=== PATIENT | female | born 1975 | race Caucasian/White ===

== ENCOUNTER 2022-12-21 18:21 | Inpatient (IN) | payer MEDICARE, MEDICAID, SELFPAY ==
--- NOTE | ~2022-12-21 | CT_ITS ---
EXAMINATION: CT ABDOMEN AND PELVIS WITH CONTRAST CLINICAL INFORMATION: Abdominal pain. COMPARISON: 12/29/2022. TECHNIQUE: Multidetector volumetric images were obtained from the superior aspect of the liver through the pubic symphysis following administration 85 mL of Omnipaque 350 intravenous contrast. Sagittal and coronal reformatted images were obtained on the technologist's workstation. Oral contrast: No This CT examination was performed using dose optimization techniques as appropriate, variously including the following: *Automated exposure control *Adjustment of mA and/or kV according to patient size (this includes techniques or standardized protocols for targeted exams where dose is matched to indication/reason for exam; i.e. extremities or head) *Use of iterative reconstruction technique DLP: 359 mGy-cm FINDINGS: LUNG BASES: The visualized lung bases are unremarkable. LIVER, GALLBLADDER, AND BILIARY TREE: The liver is normal in size, shape, and attenuation. No focal liver lesion is seen. There is intrahepatic biliary duct dilatation and intrahepatic biliary air. There has been a prior cholecystectomy. PANCREAS: Unremarkable. SPLEEN: Unremarkable. ADRENAL GLANDS: Unremarkable. KIDNEYS AND URETERS: The kidneys are normal in size, shape, and attenuation. No hydronephrosis, hydroureter, or calculi seen. No perinephric stranding. BLADDER: Unremarkable. GASTROINTESTINAL TRACT: There is retained stool throughout the colon. There is an area of apparent soft tissue thickening left midabdomen measuring up to 4 cm associated with bowel loops. There is mild there is apparent twisting of the central mesenteric without associated bowel dilatation. The appendix is not seen. There is a moderate hiatal hernia. ABDOMINAL WALL: No significant hernia is appreciated. LYMPH NODES: Normal. VASCULAR: Unremarkable. PELVIC VISCERA: There is an IUD in place. OSSEOUS STRUCTURES: Unremarkable. CT/CT abdomen pelvis w IV con IMPRESSION: The soft tissue mass left mid abdomen is not seen as previously described and likely represented unopacified bowel on prior exam. There is a residual area of soft tissue left mid abdominal associated with bowel loops also possibly unopacified bowel versus bowel thickening. Consider repeat examination in 1-3 months with oral contrast. There is retained stool throughout the colon. There is partial twisting of the central mesentery without bowel dilatation of uncertain significance. The appendix is not seen. Moderate hiatal hernia. Common bile duct and intrahepatic biliary air is noted. Fleischner guidelines were followed.
--- NOTE | ~2022-12-21 | CT_ITS ---
EXAMINATION: CT ABDOMEN AND PELVIS WITHOUT CONTRAST CLINICAL INFORMATION: Severe abdominal pain. COMPARISON: None available. TECHNIQUE: Multidetector volumetric imaging was performed from the superior aspect of the liver through the pubic symphysis. Sagittal and coronal reformatted images were obtained on the technologist's workstation. This CT examination was performed using dose optimization techniques as appropriate, variously including the following: *Automated exposure control *Adjustment of mA and/or kV according to patient size (this includes techniques or standardized protocols for targeted exams where dose is matched to indication/reason for exam; i.e. extremities or head) *Use of iterative reconstruction technique DLP: 387 mGy-cm FINDINGS: The study is technically limited due to absence of oral and intravenous contrast and absence of body fat. LUNG BASES: The visualized lung bases are unremarkable. A moderate size hiatal hernia is noted. LIVER, GALLBLADDER, AND BILIARY TREE: The liver is normal in size, shape, and attenuation. No focal hepatic lesion or biliary ductal dilatation is present. The gallbladder is surgically absent. Evidence of pneumobilia is noted. PANCREAS: Diffuse soft tissue masslike appearance is noted within the central mid abdomen and extending on either side of the midline in the region of the pancreas. Follow-up repeat images with oral and intravenous contrast is recommended for further differentiation between nonopacified bowel loops as well as possible pancreatic pathology. SPLEEN: Unremarkable. ADRENAL GLANDS: Unremarkable. KIDNEYS AND URETERS: The kidneys are normal in size, shape, and attenuation. No hydronephrosis, hydroureter, or calculi seen. No perinephric stranding. BLADDER: Fluid containing structure in the anatomical location of the urinary bladder likely represent distended urinary bladder and less likely to be fluid containing midline tumor. GASTROINTESTINAL TRACT: Moderate size hiatal hernia. Significant ingested particle is seen within the stomach. Extensive fecal residual throughout the entire large bowel. No evidence of any abnormal bowel dilatation or air-fluid level to suspect obstruction. ABDOMINAL WALL: No significant hernia is appreciated. Peritoneal cavity: Heterogeneous lobulated soft tissue mass is present at left mid abdomen laterally along the paracolic region displacing the bowel loops medially, measures approximately 8 cm at its maximum craniocaudal dimension, not optimally characterized. Again a repeat CT scan of the abdomen and pelvis with oral and intravenous contrast is recommended for further full detail evaluation of this abnormality. LYMPH NODES: Presence or absence of mesenteric lymphadenopathy or mesenteric mass suboptimally evaluated. No definite sizable retroperitoneal soft tissue mass is visualized. Evaluation is again limited due to lack of body fat and absence of oral and intravenous contrast. VASCULAR: Unremarkable. PELVIC VISCERA: The uterus is displaced to the presacral region. The fluid containing structure in the region of the urinary bladder likely represent physiologically distended bladder and less likely to be fluid containing midline tumor with collapsed bladder. Further differentiation cannot be made on this imaging alone. Repeat evaluation with oral and intravenous contrast to opacify the bladder is recommended. OSSEOUS STRUCTURES: No suspicious focal lytic or sclerotic lesion. CT/CT abdomen pelvis wo IV con IMPRESSION: 1. Technically suboptimal study given the absence of oral and intravenous contrast and lack of body fat. 2. On this limited images, there is a suspicious soft tissue mass identified within the left mid abdomen laterally and possible soft tissue mass versus nonopacified bowel within the central upper abdomen. Fluid containing structure in the region of the urinary bladder likely represent physiologically distended bladder and less likely to be midline cystic mass with collapsed bladder. A follow-up repeat CT scan of the abdomen and pelvis following administration of adequate amount of oral contrast (to opacify the entire small and large bowel with appropriate waiting time), and intravenous contrast is recommended including possible delayed images to opacify the urinary bladder for further clarification. Fleischner guidelines were followed.
--- NOTE | ~2022-12-21 | CT_ITS ---
EXAMINATION: CT ABDOMEN AND PELVIS WITH CONTRAST CLINICAL INFORMATION: Abdominal pain, severe and intractable COMPARISON: KUB earlier today, CT abdomen pelvis 12/30/2022 TECHNIQUE: Multidetector volumetric images were obtained from the superior aspect of the liver through the pubic symphysis following administration 85 mL of Omnipaque 350 intravenous contrast. Sagittal and coronal reformatted images were obtained on the technologist's workstation. Oral contrast: No This CT examination was performed using dose optimization techniques as appropriate, variously including the following: *Automated exposure control *Adjustment of mA and/or kV according to patient size (this includes techniques or standardized protocols for targeted exams where dose is matched to indication/reason for exam; i.e. extremities or head) *Use of iterative reconstruction technique DLP: 383 mGy-cm FINDINGS: LUNG BASES: The visualized lung bases are unremarkable. LIVER, GALLBLADDER, BILIARY TREE AND PANCREAS: The liver is normal in size, shape, and attenuation. No focal hepatic lesion or biliary ductal dilatation is present. Status post cholecystectomy with pneumobilia. The common bile duct measures 10 mm. The pancreatic duct appears dilated at 6 mm and unchanged when compared to the 12/10/2022 study. No gallstones are seen. No pancreatic mass is seen. SPLEEN: Unremarkable. ADRENAL GLANDS: Unremarkable. KIDNEYS AND URETERS: The kidneys are normal in size, shape, and attenuation. No hydronephrosis, hydroureter, or calculi seen. No perinephric stranding. BLADDER: Unremarkable. GASTROINTESTINAL TRACT: A hiatal hernia is present. A large stool burden is present throughout the colon and with high density stool, presumably left overall contrast from 2 CT scans performed on 12/29/2022 and 12/30/2022 The small and large bowel are unremarkable. The appendix is unremarkable. ABDOMINAL WALL: No significant hernia is appreciated. LYMPH NODES: No retroperitoneal lymphadenopathy. VASCULAR: Unremarkable. PELVIC VISCERA: Uterus is pushed backwards by the dilated bladder and stool filled colon. An IUD is present in good position. An abnormal adnexal mass or significant free intraperitoneal fluid is not present OSSEOUS STRUCTURES: Degenerative changes are present most prominent at L5-S1. CT/CT abdomen pelvis w IV con IMPRESSION: 1. Large stool burden throughout the colon. 2. Status post cholecystectomy with pneumobilia. 3. Stable dilatation of the pancreatic duct. 4. IUD in good position. 5. Other incidental findings as described above. Fleischner guidelines were followed.
--- NOTE | ~2022-12-21 | XR_ITS ---
EXAMINATION: XR ABDOMEN KUB CLINICAL INDICATION: Severe constipation COMPARISON: Abdomen CT from 12/30/2022 TECHNIQUE: AP view of the abdomen. FINDINGS: Cholecystectomy clips in the right upper quadrant. The distribution of bowel gas is normal. No pathologic sized loops of bowel or pneumoperitoneum. The bowel gas is seen in the level the rectum. Moderate amount fecal material is present within the colon. The overall volume of fecal material has decreased compared 12/30/2022. No evidence of renal stones, although evaluation for urinary tract stones is limited due to overlying bowel gas and fecal material. Intrauterine contraceptive device is seen in the midline of the pelvis. XR/XR KUB IMPRESSION: Interval improvement. The amount of fecal material in the colon has decreased compared to 12/30/2022. There is no evidence of bowel obstruction.
--- NOTE | ~2022-12-21 | XR_ITS ---
EXAMINATION: XR ABDOMEN KUB CLINICAL INDICATION: Abdominal pain COMPARISON: None available. TECHNIQUE: AP view of the abdomen. FINDINGS: There is scattered stool and gas seen in colon with mild prominence but no distention. There is no organomegaly. No radiopaque calculi. Gallbladder is out. There is IUD within the pelvis. No gross bony abnormality seen. XR/XR KUB IMPRESSION: 1. Mild constipation. No acute process seen. 2. IUD in the pelvis. .
[2022-12-21 18:00] VITALS: BP 120/60; PULSE 72; RESP 16; TEMP 36.6; O2SAT 99
[2022-12-21 18:52] VITALS: BMI 19.6
[2022-12-21 18:57] VITALS: BMI 19.6
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
[2022-12-21] MEDS: risperiDONE 1 MG TABLET PO (21:35)
[2022-12-21] MEDS: hydrOXYzine HCL 25 MG TABLET PO (21:35)
[2022-12-21] MEDS: Nicotine Polacrilex 2 MG GUM 4 MG BUCCAL (21:36)
[2022-12-21] MEDS: traZODone HCL 50 MG TABLET PO (22:10)
[2022-12-21] MEDS: clonazePAM 1 MG TABLET PO (22:10)
[2022-12-21] MEDS: Gabapentin 600 MG TABLET PO (22:10)
[2022-12-22] MEDS: Nicotine Polacrilex 2 MG GUM 4 MG BUCCAL ×4 (06:40→20:28)
[2022-12-22 07:40] VITALS: BP 120/75; PULSE 81; RESP 18; TEMP 36.7; O2SAT 98
[2022-12-22] MEDS: Methylphenidate HCl 10 MG TABLET 20 MG PO ×2 (08:14→17:19)
[2022-12-22] MEDS: Diclofenac Sodium Delayed Rel 75 MG TABLET.DR PO ×2 (08:15→20:26)
[2022-12-22] MEDS: risperiDONE 1 MG TABLET PO ×2 (08:15→21:24)
[2022-12-22 08:27] VITALS: BMI 19.8
[2022-12-22 09:36] LABS: Alanine Aminotransferase 32 U/L (0-31); Alkaline Phosphatase 51 U/L (39-117); Anion Gap 8 (12-20); Aspartate Amino Transferase 25 U/L (5-31); Bilirubin Total 0.2 mg/dL (0.0-1.0); Blood Urea Nitrogen 10 mg/dL (9-16); Calcium 8.9 mg/dL (8.4-10.2); Carbon Dioxide 30 mmol/L (22-29); Chloride 106 mmol/L (96-108); Cholesterol 182 mg/dL (<200); Creatinine Clr Calc Pharmacy 89.5; Estimated Glomerular Filt Rate > 60; Glucose Fasting 87 mg/dL (60-99); HDL Cholesterol 61 mg/dL (>40); LDL Cholesterol Calculated 110 mg/dL (<100); Potassium 3.8 mmol/L (3.3-5.1); Sodium 140 mmol/L (135-145); Total Protein 6.4 g/dL (6.5-8.0); Triglycerides 57 mg/dL (<150)
[2022-12-22 09:51] LABS: Thyroid Stimulating Hormone 1.36 uIU/mL (0.32-4.0)
[2022-12-22 09:55] LABS: Folate 11.9 ng/mL (> or = 4.0); Vitamin B12 778 pg/mL (200-900)
[2022-12-22 10:07] LABS: Estimated Average Glucose 108 mg/dL; Hemoglobin A1c % 5.4 % (<6.0)
[2022-12-22] MEDS: Acetaminophen 325 MG TABLET 650 MG PO ×2 (10:11→21:23)
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
[2022-12-22] MEDS: Nicotine 14 MG PATCH.TD24 TRANSDERMA (17:21)
[2022-12-22] MEDS: Baclofen 10 MG TABLET PO (17:21)
[2022-12-22] MEDS: hydrOXYzine HCL 25 MG TABLET PO (20:26)
[2022-12-22] MEDS: clonazePAM 1 MG TABLET PO (20:26)
[2022-12-22 20:27] VITALS: BP 118/58; PULSE 76; RESP 16; TEMP 36.7; O2SAT 97
[2022-12-22] MEDS: Gabapentin 600 MG TABLET PO (21:23)
[2022-12-22] MEDS: Benztropine Mesylate 1 MG TABLET PO (21:24)
[2022-12-22] MEDS: traZODone HCL 50 MG TABLET PO (21:24)
[2022-12-23] MEDS: Baclofen 10 MG TABLET PO (06:13)
[2022-12-23] MEDS: Acetaminophen 325 MG TABLET 650 MG PO ×2 (06:13→17:56)
[2022-12-23] MEDS: clonazePAM 1 MG TABLET PO ×2 (06:13→17:56)
[2022-12-23] MEDS: Nicotine Polacrilex 2 MG GUM 4 MG BUCCAL ×2 (06:55→21:39)
[2022-12-23 08:12] VITALS: BP 106/63; PULSE 71; RESP 16; TEMP 36.3; O2SAT 100
[2022-12-23] MEDS: Benztropine Mesylate 1 MG TABLET PO ×2 (08:22→21:06)
[2022-12-23] MEDS: risperiDONE 1 MG TABLET PO (08:22)
[2022-12-23] MEDS: Diclofenac Sodium Delayed Rel 75 MG TABLET.DR PO ×2 (08:22→21:05)
[2022-12-23] MEDS: Nicotine 14 MG PATCH.TD24 TRANSDERMA (08:32)
[2022-12-23] MEDS: Methylphenidate HCl 10 MG TABLET 20 MG PO ×2 (09:47→15:51)
[2022-12-23] MEDS: Omeprazole 20 MG CAPSULE.DR PO (12:40)
[2022-12-23] MEDS: Gabapentin 600 MG TABLET PO ×2 (14:36→21:06)
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
[2022-12-23 20:00] VITALS: BP 112/62; PULSE 77; TEMP 36.9; O2SAT 100
[2022-12-23] MEDS: risperiDONE 2 MG TABLET PO (21:05)
[2022-12-23] MEDS: hydrOXYzine HCL 25 MG TABLET PO (21:30)
[2022-12-23] MEDS: traZODone HCL 50 MG TABLET PO (22:30)
[2022-12-23] MEDS: clonazePAM 0.5 MG TABLET PO (22:30)
[2022-12-24] MEDS: Omeprazole 20 MG CAPSULE.DR PO (08:30)
[2022-12-24] MEDS: Gabapentin 600 MG TABLET PO ×3 (08:31→22:14)
[2022-12-24] MEDS: Diclofenac Sodium Delayed Rel 75 MG TABLET.DR PO ×2 (08:31→21:47)
[2022-12-24] MEDS: Benztropine Mesylate 1 MG TABLET PO ×2 (08:31→21:47)
[2022-12-24] MEDS: risperiDONE 1 MG TABLET PO (08:31)
[2022-12-24] MEDS: Nicotine 14 MG PATCH.TD24 TRANSDERMA (08:45)
[2022-12-24] MEDS: Methylphenidate HCl 10 MG TABLET 20 MG PO ×2 (08:45→13:39)
[2022-12-24 09:00] VITALS: BP 98/56; PULSE 80; RESP 16; TEMP 36.6; O2SAT 98
[2022-12-24] MEDS: Nicotine Polacrilex 2 MG GUM 4 MG BUCCAL ×2 (10:19→14:28)
[2022-12-24] MEDS: clonazePAM 0.5 MG TABLET PO (14:48)
[2022-12-24] MEDS: clonazePAM 1 MG TABLET PO ×2 (16:55→21:47)
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
[2022-12-24] MEDS: hydrOXYzine HCL 25 MG TABLET PO (18:13)
[2022-12-24 20:20] VITALS: BP 129/73; PULSE 71; RESP 15; TEMP 36.2; O2SAT 95
[2022-12-24] MEDS: risperiDONE 2 MG TABLET PO (21:47)
[2022-12-24] MEDS: Oxymetazoline HCl 0.05 % Nasal 15 ML SPRAY 2 SPRAY NOSTRIL-B (22:11)
[2022-12-24] MEDS: Sodium Chloride 0.65 % Nasal 44 ML SPRBTL 1 SPRAY NOSTRIL-B (22:13)
[2022-12-24] MEDS: traZODone HCL 50 MG TABLET PO (22:44)
[2022-12-25] MEDS: Acetaminophen 325 MG TABLET 650 MG PO (06:27)
[2022-12-25] MEDS: Omeprazole 20 MG CAPSULE.DR PO (06:27)
[2022-12-25] MEDS: Baclofen 10 MG TABLET PO ×2 (06:27→22:05)
[2022-12-25] MEDS: Methylphenidate HCl 10 MG TABLET 20 MG PO ×2 (08:06→14:16)
[2022-12-25] MEDS: Diclofenac Sodium Delayed Rel 75 MG TABLET.DR PO (08:06)
[2022-12-25] MEDS: Benztropine Mesylate 1 MG TABLET PO ×2 (08:06→22:50)
[2022-12-25] MEDS: Gabapentin 600 MG TABLET PO ×3 (08:06→21:37)
[2022-12-25] MEDS: risperiDONE 1 MG TABLET PO (08:06)
[2022-12-25] MEDS: Nicotine 14 MG PATCH.TD24 TRANSDERMA (08:10)
[2022-12-25] MEDS: Nicotine Polacrilex 2 MG GUM 4 MG BUCCAL ×3 (08:13→18:46)
[2022-12-25] MEDS: clonazePAM 1 MG TABLET PO ×2 (08:37→18:46)
[2022-12-25 08:45] VITALS: BP 123/64; PULSE 74; RESP 16; TEMP 36.7; O2SAT 100
--- NOTE | 2022-12-25 12:56 | MHC.RECOVRN ---
47 year old Upper Sor[place] speaking female directly admitted to for increased anxiety, depression and paranoia. T/w along with Recovery Support Nurse Jade, met with pt to discuss her request for Naltrexone.? ?Pt. pleasant and cooperative and actively participating in conversation.? Denies any W/D symptoms and none observed. ?Pt reports she has a long history of AUD and that it runs in her family on both her maternal and paternal sides.? Pt reports how she was on Vivitrol in the past and it led up to her achieving 8 years of sobriety from alcohol.? She explains that approx. 4 months ago she started having increased stressors that contributed to her returning to use.? She was drinking approx. 4 mixed drinks 2x/wk since August of this year.? She did stop a week ago and denies any W/D or seizures upon stopping.? Pt. also discussed how AA was a big support for her in the past and she is going to return to those meetings upon D/C from hospital.? Pt. reports using cocaine intranasal occasionally when drinking but that it is not a regular thing.? She denies any IVDU.? Services available for AUD were discussed with patient including Naltrexone and Campral.? Patient is requesting to return to naltrexone as she has had success with it in the past.? She was given literature on information for AMY as well as clinics in the area that provide.? We also discussed potential treatment clinics in her area for these services.? Mariposa Nicole NP was contacted with request for Naltrexone start.? ?
[2022-12-25] MEDS: Ibuprofen 800 MG TABLET PO ×2 (13:35→22:05)
[2022-12-25] MEDS: clonazePAM 0.5 MG TABLET PO (14:16)
--- NOTE | 2022-12-25 16:08 | HO.PSYCHPN ---
Subjective Subjective Date of Service: 12/25/22 Reason For Visit: Schizoaffective disorder Drpression unspecified Interim History: Pt feels better in terms of paranoia. She is less anxious. However concerned about her housing situation. She saw addiction medicine for her alcohol use because she is interested in Naltrexone. That was recommended and she will start that tonight. Slept well. No SI. Says she has a to do list when she leaves. She got her period and asking for ibuprofen. She reports she is overall improving. Visible on the unit. Review of Systems Review of Systems No SOB. Pt reports musculoskeletal rigidity with and without antipsychotic No chest pain, no palpitations Mental Status Exam Mental Status Exam Narrative: Appearance:casually groomed, thin, goof hygiene, in NAD Behavior: cooperative Psychomotor: no agitation or retardation noted Speech: clear, normal rate/rhythm/volume, spontaneous TP: mostly linear TC: neighbors after her, worried about them harming her, retaliation for her going to police Mood: anxious Affect: congruent SI: denies, reports feeling less overwhelmed HI: none VH/AH: not at the moment, but reports she was hearing neighbors talking about her Delusions: paranoid delusions Insight/judgment: poor x 2. Memory/cog: alert, oriented x 3. grossly intact to conversational testing. Diagnostics Vital Signs (24Hr): Vital Signs - 24 hr 12/24/22 20:20 12/25/22 08:45 Temperature 97.1 F 98.0 F Pulse Rate 71 74 Respiratory Rate 15 16 Blood Pressure 129/73 123/64 Pulse Oximetry 95 100 Oxygen Delivery Method Room Air BMI result Body Mass Index 19.8 Labs 12/22/22 08:24 Medications Medications Current Medications Acetaminophen (Acetaminophen 325 Mg Tablet) 650 mg PO Q6H PRN PRN Reason: Headache/Pain Mild Scale (1-3) Last Admin: 12/25/22 06:27 Dose: 650 mg Al Hydroxide/Mg Hydroxide (Magnesium Hydrox/Alum Hydrox 30 Ml Oral.Susp) 30 ml PO Q6H PRN PRN Reason: Heartburn/Nausea Albuterol Sulfate (Albuterol Sulfate 90 Mcg 8 Gm Inhaler) 1 puff INHALE RQ4H PRN PRN Reason: Wheezing Baclofen (Baclofen 10 Mg Tablet) 10 mg PO BID PRN PRN Reason: muscle spasm Last Admin: 12/25/22 06:27 Dose: 10 mg Benztropine Mesylate (Benztropine Mesylate 1 Mg Tablet) 1 mg PO BID [facility] Last Admin: 12/25/22 08:06 Dose: 1 mg Clonazepam (Clonazepam 1 Mg Tablet) 1 mg PO BID PRN PRN Reason: anxiety Last Admin: 12/25/22 08:37 Dose: 1 mg Clonazepam (Clonazepam 0.5 Mg Tablet) 0.5 mg PO DAILY PRN PRN Reason: anxiety not responsive to Hydroxyzine Last Admin: 12/25/22 14:16 Dose: 0.5 mg Diclofenac Sodium (Diclofenac Sodium Delayed Rel 75 Mg Tablet.) 75 mg PO BID [facility] Last Admin: 12/25/22 08:06 Dose: 75 mg Gabapentin (Gabapentin 600 Mg Tablet) 600 mg PO TID [facility] Last Admin: 12/25/22 14:16 Dose: 600 mg Hydroxyzine HCl (Hydroxyzine Hcl 25 Mg Tablet) 25 mg PO Q6H PRN PRN Reason: Anxiety Last Admin: 12/24/22 18:13 Dose: 25 mg Ibuprofen (Ibuprofen 800 Mg Tablet) 800 mg PO TID PRN PRN Reason: Pain, Moderate(Pain Scale 4-6) Last Admin: 12/25/22 13:35 Dose: 800 mg Magnesium Hydroxide (Milk Of Magnesia 30 Ml Oral.Susp) 30 ml PO DAILY PRN PRN Reason: Constipation Methylphenidate HCl (Methylphenidate Hcl 10 Mg Tablet) 20 mg PO BID@0830,1330 [facility] Last Admin: 12/25/22 14:16 Dose: 20 mg Nicotine (Nicotine 14 Mg Patch.Td24) 14 mg TRANSDERMA DAILY PRN PRN Reason: nicotine cravings Last Admin: 12/25/22 08:10 Dose: 14 mg Nicotine Polacrilex (Nicotine Polacrilex 2 Mg Gum) 4 mg BUCCAL Q2H PRN PRN Reason: Nicotine Cravings Last Admin: 12/25/22 13:35 Dose: 2 mg Pulmicort 90 Mcg 2 each INHALE RBID [facility] Last Admin: 12/25/22 08:09 Dose: 2 each Omeprazole (Omeprazole 20 Mg Capsule.Dr) 20 mg PO DAILY@0630 [facility] Last Admin: 12/25/22 06:27 Dose: 20 mg Oxymetazoline HCl (Oxymetazoline Hcl 0.05 % Nasal 15 Ml [place]) 2 spray NOSTRIL-B BID PRN PRN Reason: Nasal Congestion Stop: 12/27/22 21:46 Last Admin: 12/24/22 22:11 Dose: 2 spray Risperidone (Risperidone 1 Mg Tablet) 1 mg PO DAILY [facility] Last Admin: 12/25/22 08:06 Dose: 1 mg Risperidone (Risperidone 2 Mg Tablet) 2 mg PO BEDTIME [facility] Last Admin: 12/24/22 21:47 Dose: 2 mg Sodium Chloride (Sodium Chloride 0.65 % Nasal 44 Ml Sprbtl) 1 spray NOSTRIL-B Q1H PRN PRN Reason: Congestion Last Admin: 12/24/22 22:13 Dose: 1 spray Trazodone HCl (Trazodone Hcl 50 Mg Tablet) 50 mg PO BEDTIME MRX1 PRN PRN Reason: Insomnia Last Admin: 12/24/22 22:44 Dose: 50 mg Allergies Allergies Allergy/AdvReac Type Severity Reaction Status Date / Time clindamycin Allergy Intermediate Rash Verified 12/21/22 17:11 Assessment & Plan Assessment & Plan (1) Psychosis: Status: Acute Code(s): F29 - Unspecified psychosis not due to a substance or known physiological condition Plan Pt with paranoid delusions towards neighbors. One previous episode of psychosis back in 2020, apparently otherwise functioning (to some degree as she is on SSI due to mental illness). Hx of substance use- alcohol, unclear other substances. Utox was negative. PLAN 1. increase risperidone to 1mg po daily and 2mg po qhs. continue cogentin 1mg po BID. 2. aftercare planning 12/24: Move Ritalin to AM and 2PM. Add an extra dose of Klonopin 0.5 mg PRN in the afternoon. 12/25: Hold Voltaren. Start Ibuprofen 800 mg TID PRN. Start Naltrexone per addiction medicine. Reason for continued inpatient stay Substantial Risk for: harm to self and rapid decompensation Time Spent With Patient Time: Total time managing care of this patient today ____ minutes.
[2022-12-25 18:00] VITALS: BP 121/72; PULSE 74; RESP 18; TEMP 36.5; O2SAT 99
[2022-12-25] MEDS: risperiDONE 2 MG TABLET PO (21:37)
[2022-12-25] MEDS: traZODone HCL 50 MG TABLET PO (22:05)
[2022-12-26] MEDS: Omeprazole 20 MG CAPSULE.DR PO (06:50)
[2022-12-26 07:25] VITALS: BP 106/63; PULSE 72; RESP 16; TEMP 37; O2SAT 98
[2022-12-26] MEDS: Naltrexone HCl 50 MG TABLET 25 MG PO (08:25)
[2022-12-26] MEDS: Methylphenidate HCl 10 MG TABLET 20 MG PO ×2 (08:26→14:03)
[2022-12-26] MEDS: Gabapentin 600 MG TABLET PO ×3 (08:26→21:03)
[2022-12-26] MEDS: clonazePAM 1 MG TABLET PO ×2 (08:27→17:11)
[2022-12-26] MEDS: Benztropine Mesylate 1 MG TABLET PO ×2 (08:27→21:03)
[2022-12-26] MEDS: risperiDONE 1 MG TABLET PO (08:28)
[2022-12-26] MEDS: Nicotine Polacrilex 2 MG GUM 4 MG BUCCAL ×2 (08:28→11:37)
[2022-12-26] MEDS: Nicotine 14 MG PATCH.TD24 TRANSDERMA (08:29)
[2022-12-26] MEDS: Sodium Chloride 0.65 % Nasal 44 ML SPRBTL 1 SPRAY NOSTRIL-B (08:31)
[2022-12-26] MEDS: Ibuprofen 800 MG TABLET PO ×2 (08:33→20:24)
--- NOTE | 2022-12-26 09:21 | HO.PSYCHPN ---
Subjective Subjective Date of Service: 12/26/22 Reason For Visit: Schizoaffective disorder Drpression unspecified Subjective Notes: Conditional Voluntary Interim History: Reviewed in team and . Patient reports feeling pretty good today. She reports feeling hopeful after speaking to addiction medicine yesterday. Pt reports sleeping well; pt stated, I haven't slept this well in months . Continues to present with paranoia regarding neighbors. Pt reports she has been in contact with [facility] and is looking for a new place to live so I don't have to be near those neighbors anymore . She is interested in attending IOP at the [facility]. denies SI/HI/VH/AH. Risperidal increased to 2mg PO BID. Medication Compliance: Yes Side effects from medications: No Attending Groups: Yes Review of Systems Constitutional: Reports as per HPI Eyes: Reports as per HPI Reports as per HPI Cardiovascular: Reports as per HPI Respiratory: Reports as per HPI Gastrointestinal: Reports as per HPI Genitourinary: Reports as per HPI Musculoskeletal: Reports as per HPI Skin/Breast: Reports as per HPI Reports as per HPI Psychiatric: Reports as per HPI Endocrine: Reports as per HPI Hematologic/Lymphatic: Reports as per HPI Allergic/Immunologic: Reports as per HPI Mental Status Exam Mental Status Exam Narrative: Pt is alert and oriented; behavior is cooperative and calm; dressed in casual attire; mood is described as good ; eye contact appropriate; Speech is normal rate, volume and prosody and not pressured; no psychomotor agitation/retardation present; thought process is organized and goal directed; Thought content is on tx; presents with some paranoia regarding neighbors; denies SI/HI. There is no evidence of perceptual disturbance. Diagnostics Vital Signs (24Hr): Vital Signs - 24 hr 12/25/22 18:00 12/26/22 07:25 Temperature 97.7 F 98.6 F Pulse Rate 74 72 Respiratory Rate 18 16 Blood Pressure 121/72 106/63 Pulse Oximetry 99 98 Oxygen Delivery Method Room Air Room Air BMI result Body Mass Index 19.8 Labs 12/22/22 08:24 Medications Medications Current Medications Acetaminophen (Acetaminophen 325 Mg Tablet) 650 mg PO Q6H PRN PRN Reason: Headache/Pain Mild Scale (1-3) Last Admin: 12/25/22 06:27 Dose: 650 mg Al Hydroxide/Mg Hydroxide (Magnesium Hydrox/Alum Hydrox 30 Ml Oral.Susp) 30 ml PO Q6H PRN PRN Reason: Heartburn/Nausea Albuterol Sulfate (Albuterol Sulfate 90 Mcg 8 Gm Inhaler) 1 puff INHALE RQ4H PRN PRN Reason: Wheezing Baclofen (Baclofen 10 Mg Tablet) 10 mg PO BID PRN PRN Reason: muscle spasm Last Admin: 12/25/22 22:05 Dose: 10 mg Benztropine Mesylate (Benztropine Mesylate 1 Mg Tablet) 1 mg PO BID [facility] Last Admin: 12/26/22 08:27 Dose: 1 mg Clonazepam (Clonazepam 1 Mg Tablet) 1 mg PO BID PRN PRN Reason: anxiety Last Admin: 12/26/22 08:27 Dose: 1 mg Clonazepam (Clonazepam 0.5 Mg Tablet) 0.5 mg PO DAILY PRN PRN Reason: anxiety not responsive to Hydroxyzine Last Admin: 12/25/22 14:16 Dose: 0.5 mg Diclofenac Sodium (Diclofenac Sodium Delayed Rel 75 Mg Tablet.Dr) 75 mg PO BID [facility] Last Admin: 12/25/22 08:06 Dose: 75 mg Gabapentin (Gabapentin 600 Mg Tablet) 600 mg PO TID [facility] Last Admin: 12/26/22 08:26 Dose: 600 mg Hydroxyzine HCl (Hydroxyzine Hcl 25 Mg Tablet) 25 mg PO Q6H PRN PRN Reason: Anxiety Last Admin: 12/24/22 18:13 Dose: 25 mg Ibuprofen (Ibuprofen 800 Mg Tablet) 800 mg PO TID PRN PRN Reason: Pain, Moderate(Pain Scale 4-6) Last Admin: 12/26/22 08:33 Dose: 800 mg Magnesium Hydroxide (Milk Of Magnesia 30 Ml Oral.Susp) 30 ml PO DAILY PRN PRN Reason: Constipation Methylphenidate HCl (Methylphenidate Hcl 10 Mg Tablet) 20 mg PO BID@0830,1330 [facility] Last Admin: 12/26/22 08:26 Dose: 20 mg Naltrexone HCl (Naltrexone Hcl 50 Mg Tablet) 25 mg PO DAILY [facility] Last Admin: 12/26/22 08:25 Dose: 25 mg Nicotine (Nicotine 14 Mg Patch.Td24) 14 mg TRANSDERMA DAILY PRN PRN Reason: nicotine cravings Last Admin: 12/26/22 08:29 Dose: 14 mg Nicotine Polacrilex (Nicotine Polacrilex 2 Mg Gum) 4 mg BUCCAL Q2H PRN PRN Reason: Nicotine Cravings Last Admin: 12/26/22 08:28 Dose: 4 mg Pulmicort 90 Mcg 2 each INHALE RBID [facility] Last Admin: 12/26/22 08:30 Dose: 2 each Omeprazole (Omeprazole 20 Mg Capsule.Dr) 20 mg PO DAILY@0630 [facility] Last Admin: 12/26/22 06:50 Dose: 20 mg Oxymetazoline HCl (Oxymetazoline Hcl 0.05 % Nasal 15 Ml [place]) 2 spray NOSTRIL-B BID PRN PRN Reason: Nasal Congestion Stop: 12/27/22 21:46 Last Admin: 12/24/22 22:11 Dose: 2 spray Risperidone (Risperidone 1 Mg Tablet) 1 mg PO DAILY [facility] Last Admin: 12/26/22 08:28 Dose: 1 mg Risperidone (Risperidone 2 Mg Tablet) 2 mg PO BEDTIME [facility] Last Admin: 12/25/22 21:37 Dose: 2 mg Sodium Chloride (Sodium Chloride 0.65 % Nasal 44 Ml Sprbtl) 1 spray NOSTRIL-B Q1H PRN PRN Reason: Congestion Last Admin: 12/26/22 08:31 Dose: 1 spray Trazodone HCl (Trazodone Hcl 50 Mg Tablet) 50 mg PO BEDTIME MRX1 PRN PRN Reason: Insomnia Last Admin: 12/25/22 22:05 Dose: 50 mg Allergies Allergies Allergy/AdvReac Type Severity Reaction Status Date / Time clindamycin Allergy Intermediate Rash Verified 12/21/22 17:11 Assessment & Plan Assessment & Plan (1) Psychosis: Status: Acute Code(s): F29 - Unspecified psychosis not due to a substance or known physiological condition Plan Pt with paranoid delusions towards neighbors. One previous episode of psychosis back in 2020, apparently otherwise functioning (to some degree as she is on SSI due to mental illness). Hx of substance use- alcohol, unclear other substances. Utox was negative. PLAN 1. increase risperidone to 1mg po daily and 2mg po qhs. continue cogentin 1mg po BID. 2. aftercare planning 12/24: Move Ritalin to AM and 2PM. Add an extra dose of Klonopin 0.5 mg PRN in the afternoon. 12/25: Hold Voltaren. Start Ibuprofen 800 mg TID PRN. Start Naltrexone per addiction medicine. 12/26: Patient reports feeling pretty good today. She reports feeling hopeful after speaking to addiction medicine yesterday. Pt reports sleeping well; pt stated, I haven't slept this well in months . Continues to present with paranoia regarding neighbors. Pt reports she has been in contact with [facility] and is looking for a new place to live so I don't have to be near those neighbors anymore . She is interested in attending IOP at the [facility]. denies SI/HI/VH/AH. Risperidal increased to 2mg PO BID. Patient educated on: diagnosis, medication risk/benefits, substance abuse and therapeutic strategies Informed Consent: understands Reason for continued inpatient stay Substantial Risk for: med/psych decompensation Time Spent With Patient Time: Total time managing care of this patient today _30___ minutes.
[2022-12-26] MEDS: Acetaminophen 325 MG TABLET 650 MG PO (11:34)
[2022-12-26] MEDS: clonazePAM 0.5 MG TABLET PO (11:35)
[2022-12-26] MEDS: Nicotine Polacrilex Lozenge 2 MG LOZENGE BUCCAL ×2 (20:24→21:57)
[2022-12-26] MEDS: Baclofen 10 MG TABLET PO (20:25)
[2022-12-26] MEDS: Benzocaine 20 % Oral Gel 9 GM TUBE 1 APPL MUCOUS MEM (20:57)
[2022-12-26] MEDS: risperiDONE 2 MG TABLET PO (21:03)
[2022-12-26 21:34] VITALS: BP 122/72; PULSE 74; RESP 18; TEMP 36.4; O2SAT 99
[2022-12-26] MEDS: traZODone HCL 50 MG TABLET PO (21:56)
[2022-12-27] MEDS: Omeprazole 20 MG CAPSULE.DR PO (06:13)
[2022-12-27 07:40] VITALS: BP 133/61; PULSE 75; RESP 16; TEMP 36.8; O2SAT 99
[2022-12-27] MEDS: Benzocaine 20 % Oral Gel 9 GM TUBE 1 APPL MUCOUS MEM (08:31)
[2022-12-27] MEDS: Sodium Chloride 0.65 % Nasal 44 ML SPRBTL 1 SPRAY NOSTRIL-B ×2 (08:32→22:48)
[2022-12-27] MEDS: Methylphenidate HCl 10 MG TABLET 20 MG PO ×2 (08:32→14:08)
[2022-12-27] MEDS: Nicotine 14 MG PATCH.TD24 TRANSDERMA (08:32)
[2022-12-27] MEDS: Naltrexone HCl 50 MG TABLET 25 MG PO (08:33)
[2022-12-27] MEDS: Benztropine Mesylate 1 MG TABLET PO ×2 (08:33→20:34)
[2022-12-27] MEDS: Nicotine Polacrilex Lozenge 2 MG LOZENGE BUCCAL ×3 (08:33→14:08)
[2022-12-27] MEDS: Gabapentin 600 MG TABLET PO ×3 (08:33→20:34)
[2022-12-27] MEDS: Ibuprofen 800 MG TABLET PO ×2 (08:33→18:35)
[2022-12-27] MEDS: risperiDONE 2 MG TABLET PO ×2 (08:33→20:34)
[2022-12-27] MEDS: clonazePAM 1 MG TABLET PO ×2 (08:33→16:43)
--- NOTE | 2022-12-27 10:04 | P.PNPSI_ITS ---
Subjective Subjective Date of Service: 12/27/22 Reason For Visit: Schizoaffective disorder Drpression unspecified Subjective Notes: Conditional Voluntary Interim History: Reviewed in team and . Patient reports feeling good today. denies any side effects from increase in risperidal. Patient reports finding the groups to be helpful. States she is looking forward to discharge and has made hotel arraignments until my new apartment is ready ;looking forward to possibly going to the [facility]. Patient denies SI/HI/VH/AH. Medication Compliance: Yes Side effects from medications: No Attending Groups: Yes Review of Systems Constitutional: Reports as per HPI Eyes: Reports as per HPI Reports as per HPI Cardiovascular: Reports as per HPI Respiratory: Reports as per HPI Gastrointestinal: Reports as per HPI Genitourinary: Reports as per HPI Musculoskeletal: Reports as per HPI Skin/Breast: Reports as per HPI Reports as per HPI Psychiatric: Reports as per HPI Endocrine: Reports as per HPI Hematologic/Lymphatic: Reports as per HPI Allergic/Immunologic: Reports as per HPI Mental Status Exam Mental Status Exam Narrative: Pt is alert and oriented; behavior is cooperative and calm; dressed in casual attire; mood is described as good ; eye contact appropriate; Speech is normal rate, volume and prosody and not pressured; no psychomotor agitation/retardation present; thought process is organized and goal directed; Thought content is on tx; denies SI/HI. There is no evidence of perceptual disturbance. Diagnostics Vital Signs (24Hr): Vital Signs - 24 hr 12/26/22 21:34 12/27/22 07:40 Temperature 97.5 F 98.2 F Pulse Rate 74 75 Respiratory Rate 18 16 Blood Pressure 122/72 133/61 Pulse Oximetry 99 99 Oxygen Delivery Method Room Air Room Air BMI result Body Mass Index 19.8 Labs 12/22/22 08:24 Medications Medications Current Medications Acetaminophen (Acetaminophen 325 Mg Tablet) 650 mg PO Q6H PRN PRN Reason: Headache/Pain Mild Scale (1-3) Last Admin: 12/26/22 11:34 Dose: 650 mg Al Hydroxide/Mg Hydroxide (Magnesium Hydrox/Alum Hydrox 30 Ml Oral.Susp) 30 ml PO Q6H PRN PRN Reason: Heartburn/Nausea Albuterol Sulfate (Albuterol Sulfate 90 Mcg 8 Gm Inhaler) 1 puff INHALE RQ4H PRN PRN Reason: Wheezing Baclofen (Baclofen 10 Mg Tablet) 10 mg PO BID PRN PRN Reason: muscle spasm Last Admin: 12/26/22 20:25 Dose: 10 mg Benzocaine (Benzocaine 20 % Oral Gel 9 Gm Tube) 1 appl MUCOUS MEM QID PRN; Protocol PRN Reason: Pain, Moderate(Pain Scale 4-6) Last Admin: 12/27/22 08:31 Dose: 1 appl Benztropine Mesylate (Benztropine Mesylate 1 Mg Tablet) 1 mg PO BID [facility] Last Admin: 12/27/22 08:33 Dose: 1 mg Clonazepam (Clonazepam 1 Mg Tablet) 1 mg PO BID PRN PRN Reason: anxiety Last Admin: 12/27/22 08:33 Dose: 1 mg Diclofenac Sodium (Diclofenac Sodium Delayed Rel 75 Mg Tablet.Dr) 75 mg PO BID [facility] Last Admin: 12/25/22 08:06 Dose: 75 mg Gabapentin (Gabapentin 600 Mg Tablet) 600 mg PO TID [facility] Last Admin: 12/27/22 08:33 Dose: 600 mg Hydroxyzine HCl (Hydroxyzine Hcl 25 Mg Tablet) 25 mg PO Q6H PRN PRN Reason: Anxiety Last Admin: 12/24/22 18:13 Dose: 25 mg Ibuprofen (Ibuprofen 800 Mg Tablet) 800 mg PO TID PRN PRN Reason: Pain, Moderate(Pain Scale 4-6) Last Admin: 12/27/22 08:33 Dose: 800 mg Magnesium Hydroxide (Milk Of Magnesia 30 Ml Oral.Susp) 30 ml PO DAILY PRN PRN Reason: Constipation Methylphenidate HCl (Methylphenidate Hcl 10 Mg Tablet) 20 mg PO BID@0830,1330 [facility] Last Admin: 12/27/22 08:32 Dose: 20 mg Naltrexone HCl (Naltrexone Hcl 50 Mg Tablet) 25 mg PO DAILY [facility] Last Admin: 12/27/22 08:33 Dose: 25 mg Nicotine (Nicotine 14 Mg Patch.Td24) 14 mg TRANSDERMA DAILY PRN PRN Reason: nicotine cravings Last Admin: 12/27/22 08:32 Dose: 14 mg Nicotine Polacrilex (Nicotine Polacrilex Lozenge 2 Mg Lozenge) 2 mg BUCCAL Q2H PRN PRN Reason: Nicotine Cravings Last Admin: 12/27/22 08:33 Dose: 2 mg Pulmicort 90 Mcg 2 each INHALE RBID [facility] Last Admin: 12/27/22 08:31 Dose: 2 each Omeprazole (Omeprazole 20 Mg Capsule.) 20 mg PO DAILY@0630 [facility] Last Admin: 12/27/22 06:13 Dose: 20 mg Oxymetazoline HCl (Oxymetazoline Hcl 0.05 % Nasal 15 Ml [place]) 2 spray NOSTRIL- B BID PRN PRN Reason: Nasal Congestion Stop: 12/27/22 21:46 Last Admin: 12/24/22 22:11 Dose: 2 spray Risperidone (Risperidone 2 Mg Tablet) 2 mg PO BID [facility] Last Admin: 12/27/22 08:33 Dose: 2 mg Sodium Chloride (Sodium Chloride 0.65 % Nasal 44 Ml Sprbtl) 1 spray NOSTRIL-B Q1H PRN PRN Reason: Congestion Last Admin: 12/27/22 08:32 Dose: 1 spray Trazodone HCl (Trazodone Hcl 50 Mg Tablet) 50 mg PO BEDTIME MRX1 PRN PRN Reason: Insomnia Last Admin: 12/26/22 21:56 Dose: 50 mg Allergies Allergies Allergy/AdvReac Type Severity Reaction Status Date / Time clindamycin Allergy Intermediate Rash Verified 12/21/22 17:11 Assessment & Plan Assessment & Plan (1) Psychosis: Status: Acute Code(s): F29 - Unspecified psychosis not due to a substance or known physiological condition Plan Pt with paranoid delusions towards neighbors. One previous episode of psychosis back in 2020, apparently otherwise functioning (to some degree as she is on SSI due to mental illness). Hx of substance use- alcohol, unclear other substances. Utox was negative. PLAN 1. increase risperidone to 1mg po daily and 2mg po qhs. continue cogentin 1mg po BID. 2. aftercare planning 12/24: Move Ritalin to AM and 2PM. Add an extra dose of Klonopin 0.5 mg PRN in the afternoon. 12/25: Hold Voltaren. Start Ibuprofen 800 mg TID PRN. Start Naltrexone per addiction medicine. 12/26: Patient reports feeling pretty good today. She reports feeling hopeful after speaking to addiction medicine yesterday. Pt reports sleeping well; pt stated, I haven't slept this well in months . Continues to present with paranoia regarding neighbors. Pt reports she has been in contact with [facility] and is looking for a new place to live so I don't have to be near those neighbors anymore . She is interested in attending IOP at the [facility]. denies SI/HI/VH/AH. Risperidal increased to 2mg PO BID. 12/27: Patient reports feeling good today. denies any side effects from increase in risperidal. Patient reports finding the groups to be helpful. States she is looking forward to discharge and has made hotel arraignments until my new apartment is ready ;looking forward to possibly going to the [facility]. Patient denies SI/HI/VH/AH. She is hoping to be discharged on Monday. Patient educated on: diagnosis, medication risk/benefits, substance abuse and therapeutic strategies Informed Consent: understands Reason for continued inpatient stay Substantial Risk for: med/psych decompensation Time Spent With Patient Time: Total time managing care of this patient today _30___ minutes.
[2022-12-27] MEDS: Baclofen 10 MG TABLET PO ×2 (14:09→20:34)
[2022-12-27] MEDS: Nicotine Polacrilex Lozenge 4 MG LOZENGE BUCCAL ×2 (16:43→22:25)
[2022-12-27 20:05] VITALS: BP 125/61; PULSE 75; RESP 18; TEMP 37.2; O2SAT 97
[2022-12-27] MEDS: hydrOXYzine HCL 25 MG TABLET PO (20:34)
[2022-12-27] MEDS: cloNIDine HCL 0.1 MG TABLET PO (22:25)
[2022-12-27] MEDS: traZODone HCL 50 MG TABLET PO (22:30)
[2022-12-27 22:31] VITALS: BP 125/77; PULSE 67
[2022-12-28] MEDS: Omeprazole 20 MG CAPSULE.DR PO (06:31)
[2022-12-28] MEDS: Nicotine 14 MG PATCH.TD24 TRANSDERMA (08:32)
[2022-12-28] MEDS: Nicotine Polacrilex Lozenge 4 MG LOZENGE BUCCAL ×5 (08:32→22:36)
[2022-12-28] MEDS: Ibuprofen 800 MG TABLET PO ×2 (08:32→17:02)
[2022-12-28] MEDS: risperiDONE 2 MG TABLET PO ×2 (08:33→21:20)
[2022-12-28] MEDS: Baclofen 10 MG TABLET PO ×2 (08:33→18:53)
[2022-12-28] MEDS: Benztropine Mesylate 1 MG TABLET PO ×2 (08:33→21:20)
[2022-12-28] MEDS: Naltrexone HCl 50 MG TABLET 25 MG PO (08:33)
[2022-12-28] MEDS: Methylphenidate HCl 10 MG TABLET 20 MG PO ×2 (08:34→14:26)
[2022-12-28] MEDS: Gabapentin 600 MG TABLET PO ×3 (08:34→21:20)
[2022-12-28] MEDS: Sodium Chloride 0.65 % Nasal 44 ML SPRBTL 1 SPRAY NOSTRIL-B (08:39)
--- NOTE | 2022-12-28 08:40 | P.PNPSI_ITS ---
Documented by User: Glo Escobar NP 12/28/22 12:18 Subjective Subjective Date of Service: 12/28/22 Reason For Visit: Schizoaffective disorder Drpression unspecified Subjective Notes: Conditional Voluntary Interim History: Reviewed in team and . Patient reports feeling stressed today. Pt easily agitated;irritable. Pt reporting she wants to stay until Monday because I have no where to go ; she reports she does not want to return to her apartment which holds her belongings or go to a hotel until she finds a new apartment. Pt stated, no one here is helping me. I can't look at my phone, the adoption social worker isn't calling anyone. I want my klonopin 0.5 back . Patient then started yelling at T/W d/t writing down notes from our conversation and not having constant eye contact. Pt stated, why are you not looking at me?! ; T/W explained that her concerns were being written down to be addressed. When T/W put pen down and looked at patient to provide full attention, pt stated, you're not listening to me! . T/W stated to patient that staff are trying to meet her needs but it appears that nothing is appeasing her. Pt stated, you're right! nothing is appeasing me! . pt then walked out of office. Start: Klonopin 0.5mg PO daily PRN DC clonidine and hydroxyzine d/t patient reporting it is not helping with my anxiety . Medication Compliance: Yes Side effects from medications: No Attending Groups: Yes Review of Systems Constitutional: Reports as per HPI Eyes: Reports as per HPI Reports as per HPI Cardiovascular: Reports as per HPI Respiratory: Reports as per HPI Gastrointestinal: Reports as per HPI Musculoskeletal: Reports as per HPI Skin/Breast: Reports as per HPI Reports as per HPI Psychiatric: Reports as per HPI Endocrine: Reports as per HPI Hematologic/Lymphatic: Reports as per HPI Allergic/Immunologic: Reports as per HPI Mental Status Exam Mental Status Exam Narrative: Pt is alert and oriented; behavior is agitated, yelling; dressed in casual attire; mood is irritable; eye contact appropriate; Speech is normal rate, loud volume; no psychomotor agitation/retardation present; thought process is organized and goal directed; Thought content is on tx; denies SI/HI. There is no evidence of perceptual disturbance. Diagnostics Vital Signs (24Hr): Vital Signs - 24 hr 12/27/22 20:05 12/27/22 22:31 Temperature 98.9 F Pulse Rate 75 67 Respiratory Rate 18 Blood Pressure 125/61 125/77 Pulse Oximetry 97 Oxygen Delivery Method Room Air BMI result Body Mass Index 19.8 Labs 12/22/22 08:24 Medications Medications Current Medications Acetaminophen (Acetaminophen 325 Mg Tablet) 650 mg PO Q6H PRN PRN Reason: Headache/Pain Mild Scale (1-3) Last Admin: 12/26/22 11:34 Dose: 650 mg Al Hydroxide/Mg Hydroxide (Magnesium Hydrox/Alum Hydrox 30 Ml Oral.Susp) 30 ml PO Q6H PRN PRN Reason: Heartburn/Nausea Albuterol Sulfate (Albuterol Sulfate 90 Mcg 8 Gm Inhaler) 1 puff INHALE RQ4H PRN PRN Reason: Wheezing Baclofen (Baclofen 10 Mg Tablet) 10 mg PO BID PRN PRN Reason: muscle spasm Last Admin: 12/27/22 20:34 Dose: 10 mg Benzocaine (Benzocaine 20 % Oral Gel 9 Gm Tube) 1 appl MUCOUS MEM QID PRN; Protocol PRN Reason: Pain, Moderate(Pain Scale 4-6) Last Admin: 12/27/22 08:31 Dose: 1 appl Benztropine Mesylate (Benztropine Mesylate 1 Mg Tablet) 1 mg PO BID [facility] Last Admin: 12/27/22 20:34 Dose: 1 mg Clonazepam (Clonazepam 1 Mg Tablet) 1 mg PO BID PRN PRN Reason: anxiety Last Admin: 12/27/22 16:43 Dose: 1 mg Clonidine HCl (Clonidine Hcl 0.1 Mg Tablet) 0.1 mg PO Q4H PRN; Protocol PRN Reason: anxiety Last Admin: 12/27/22 22:25 Dose: 0.1 mg Diclofenac Sodium (Diclofenac Sodium Delayed Rel 75 Mg Tablet.Dr) 75 mg PO BID [facility] Last Admin: 12/25/22 08:06 Dose: 75 mg Gabapentin (Gabapentin 600 Mg Tablet) 600 mg PO TID [facility] Last Admin: 12/27/22 20:34 Dose: 600 mg Hydroxyzine HCl (Hydroxyzine Hcl 25 Mg Tablet) 25 mg PO Q6H PRN PRN Reason: Anxiety Last Admin: 12/27/22 20:34 Dose: 25 mg Ibuprofen (Ibuprofen 800 Mg Tablet) 800 mg PO TID PRN PRN Reason: Pain, Moderate(Pain Scale 4-6) Last Admin: 12/27/22 18:35 Dose: 800 mg Magnesium Hydroxide (Milk Of Magnesia 30 Ml Oral.Susp) 30 ml PO DAILY PRN PRN Reason: Constipation Methylphenidate HCl (Methylphenidate Hcl 10 Mg Tablet) 20 mg PO BID@0830,1330 [facility] Last Admin: 12/27/22 14:08 Dose: 20 mg Naltrexone HCl (Naltrexone Hcl 50 Mg Tablet) 25 mg PO DAILY [facility] Last Admin: 12/27/22 08:33 Dose: 25 mg Nicotine (Nicotine 14 Mg Patch.Td24) 14 mg TRANSDERMA DAILY PRN PRN Reason: nicotine cravings Last Admin: 12/27/22 08:32 Dose: 14 mg Nicotine Polacrilex (Nicotine Polacrilex Lozenge 4 Mg Lozenge) 4 mg BUCCAL Q2H PRN PRN Reason: Nicotine Cravings Last Admin: 12/27/22 22:25 Dose: 4 mg Pulmicort 90 Mcg 2 each INHALE RBID [facility] Last Admin: 12/27/22 20:37 Dose: 2 each Omeprazole (Omeprazole 20 Mg Capsule.Dr) 20 mg PO DAILY@0630 [facility] Last Admin: 12/28/22 06:31 Dose: 20 mg Risperidone (Risperidone 2 Mg Tablet) 2 mg PO BID [facility] Last Admin: 12/27/22 20:34 Dose: 2 mg Sodium Chloride (Sodium Chloride 0.65 % Nasal 44 Ml Sprbtl) 1 spray NOSTRIL-B Q1H PRN PRN Reason: Congestion Last Admin: 12/27/22 22:48 Dose: 1 spray Trazodone HCl (Trazodone Hcl 50 Mg Tablet) 50 mg PO BEDTIME MRX1 PRN PRN Reason: Insomnia Last Admin: 12/27/22 22:30 Dose: 50 mg Allergies Allergies Allergy/AdvReac Type Severity Reaction Status Date / Time clindamycin Allergy Intermediate Rash Verified 12/21/22 17:11 Assessment & Plan Assessment & Plan (1) Psychosis: Status: Acute Code(s): F29 - Unspecified psychosis not due to a substance or known physiological condition Plan Pt with paranoid delusions towards neighbors. One previous episode of psychosis back in 2020, apparently otherwise functioning (to some degree as she is on SSI due to mental illness). Hx of substance use- alcohol, unclear other substances. Utox was negative. PLAN 1. increase risperidone to 1mg po daily and 2mg po qhs. continue cogentin 1mg po BID. 2. aftercare planning 12/24: Move Ritalin to AM and 2PM. Add an extra dose of Klonopin 0.5 mg PRN in the afternoon. 12/25: Hold Voltaren. Start Ibuprofen 800 mg TID PRN. Start Naltrexone per addiction medicine. 12/26: Patient reports feeling pretty good today. She reports feeling hopeful after speaking to addiction medicine yesterday. Pt reports sleeping well; pt stated, I haven't slept this well in months . Continues to present with paranoia regarding neighbors. Pt reports she has been in contact with [facility] and is looking for a new place to live so I don't have to be near those neighbors anymore . She is interested in attending IOP at the [facility]. denies SI/HI/VH/AH. Risperidal increased to 2mg PO BID. 12/27: Patient reports feeling good today. denies any side effects from increase in risperidal. Patient reports finding the groups to be helpful. States she is looking forward to discharge and has made hotel arraignments until my new apartment is ready ;looking forward to possibly going to the [facility]. Patient denies SI/HI/VH/AH. She is hoping to be discharged on Monday. 12/28: Patient reports feeling stressed today. Pt easily agitated;irritable. Pt reporting she wants to stay until Monday because I have no where to go ; she reports she does not want to return to her apartment which holds her belongings or go to a hotel until she finds a new apartment. Pt stated, no one here is helping me. I can't look at my phone, the adoption social worker isn't calling anyone. I want my klonopin 0.5 back . Patient then started yelling at T/W d/t writing down notes from our conversation and not having constant eye contact. Pt stated, why are you not looking at me?! ; T/W explained that her concerns were being written down to be addressed. When T/W put pen down and looked at patient to provide full attention, pt stated, you're not listening to me! . T/W stated to patient that staff are trying to meet her needs but it appears that nothing is appeasing her. Pt stated, you're right! nothing is appeasing me! . pt then walked out of office. Start: Klonopin 0.5mg PO daily PRN DC clonidine and hydroxyzine d/t patient reporting it is not helping with my anxiety . Patient educated on: diagnosis, medication risk/benefits, substance abuse and therapeutic strategies Informed Consent: understands Reason for continued inpatient stay Substantial Risk for: med/psych decompensation Time Spent With Patient Time: Total time managing care of this patient today _30___ minutes. Documented by User: Brando Hou MD 12/28/22 16:27 Subjective Subjective Reason For Visit: Schizoaffective disorder Drpression unspecified Diagnostics Labs 12/22/22 08:24 Assessment & Plan Assessment & Plan (1) Psychosis: Status: Acute Code(s): F29 - Unspecified psychosis not due to a substance or known physiological condition Plan Pt with paranoid delusions towards neighbors. One previous episode of psychosis back in 2020, apparently otherwise functioning (to some degree as she is on SSI due to mental illness). Hx of substance use- alcohol, unclear other substances. Utox was negative. PLAN 1. increase risperidone to 1mg po daily and 2mg po qhs. continue cogentin 1mg po BID. 2. aftercare planning 12/24: Move Ritalin to AM and 2PM. Add an extra dose of Klonopin 0.5 mg PRN in the afternoon. 12/25: Hold Voltaren. Start Ibuprofen 800 mg TID PRN. Start Naltrexone per addiction medicine. 12/26: Patient reports feeling pretty good today. She reports feeling hopeful after speaking to addiction medicine yesterday. Pt reports sleeping well; pt stated, I haven't slept this well in months . Continues to present with paranoia regarding neighbors. Pt reports she has been in contact with [facility] and is looking for a new place to live so I don't have to be near those neighbors anymore . She is interested in attending IOP at the [facility]. denies SI/HI/VH/AH. Risperidal increased to 2mg PO BID. 12/27: Patient reports feeling good today. denies any side effects from increase in risperidal. Patient reports finding the groups to be helpful. States she is looking forward to discharge and has made hotel arraignments until my new apartment is ready ;looking forward to possibly going to the [facility]. Patient denies SI/HI/VH/AH. She is hoping to be discharged on Monday. 12/28: Patient reports feeling stressed today. Pt easily agitated;irritable. Pt reporting she wants to stay until Monday because I have no where to go ; she reports she does not want to return to her apartment which holds her belongings or go to a hotel until she finds a new apartment. Pt stated, no one here is helping me. I can't look at my phone, the adoption social worker isn't calling anyone. I want my klonopin 0.5 back . Patient then started yelling at T/W d/t writing down notes from our conversation and not having constant eye contact. Pt stated, why are you not looking at me?! ; T/W explained that her concerns were being written down to be addressed. When T/W put pen down and looked at patient to provide full attention, pt stated, you're not listening to me! . T/W stated to patient that staff are trying to meet her needs but it appears that nothing is appeasing her. Pt stated, you're right! nothing is appeasing me! . pt then walked out of office. Start: Klonopin 0.5mg PO daily PRN Pt with PI mood instability irritability DC clonidine and hydroxyzine d/t patient reporting it is not helping with my anxiety .
[2022-12-28 08:48] VITALS: BP 115/55; PULSE 66; TEMP 36.1; O2SAT 100
[2022-12-28] MEDS: clonazePAM 1 MG TABLET PO ×2 (11:55→19:53)
[2022-12-28] MEDS: clonazePAM 0.5 MG TABLET PO (17:00)
[2022-12-28 19:45] VITALS: BP 112/57; PULSE 75; RESP 16; TEMP 36.4; O2SAT 97
[2022-12-28] MEDS: traZODone HCL 50 MG TABLET PO (22:34)
[2022-12-29] MEDS: Omeprazole 20 MG CAPSULE.DR PO (06:37)
[2022-12-29 07:00] VITALS: BMI 21.8
[2022-12-29] MEDS: Methylphenidate HCl 10 MG TABLET 20 MG PO ×2 (08:24→13:50)
[2022-12-29] MEDS: Benztropine Mesylate 1 MG TABLET PO ×2 (08:24→22:27)
[2022-12-29] MEDS: risperiDONE 2 MG TABLET PO (08:24)
[2022-12-29] MEDS: Ibuprofen 800 MG TABLET PO (08:25)
[2022-12-29] MEDS: Naltrexone HCl 50 MG TABLET PO (08:25)
[2022-12-29] MEDS: Gabapentin 600 MG TABLET PO ×3 (08:25→22:28)
[2022-12-29] MEDS: Baclofen 10 MG TABLET PO (08:25)
[2022-12-29 08:30] VITALS: BP 111/58; PULSE 69; RESP 16; TEMP 36.2; O2SAT 95
[2022-12-29] MEDS: Nicotine 14 MG PATCH.TD24 TRANSDERMA (08:30)
[2022-12-29] MEDS: Nicotine Polacrilex Lozenge 4 MG LOZENGE BUCCAL ×3 (08:30→18:23)
--- NOTE | 2022-12-29 12:13 | P.PNPSI_ITS ---
Subjective Subjective Date of Service: 12/29/22 Reason For Visit: Schizoaffective disorder Drpression unspecified Subjective Notes: Conditional Voluntary Interim History: the nursing staff reported the patient has anxiety, she had a vulvar are occasion with a peer but easily redirectable, she used her Klonopin p.r.n.. She slept 6 hours. On interview the patient reported nasal congested and requested Sudafed p.r.n.. No major changes in mental status. She stated that she has gained weight and she agreed to change all her Risperdal at bedtime. Mental Status Exam Mental Status Exam Patient Appearance: Well Grooomed and Appropriate Patient Orientation: Person, Place and Situation Level of Consciousness: Awake and Appropriate Patient Behavior: Guarded and Passive Mood Description: Calm Affect Description: Constricted Patient Cognition Impaired: Yes Ability to Follow Directions: Good Speech Pattern: Clear Hallucinations: None Delusions: Not Present Thought Process: Linear Thought Content: positive for Circumstantial Judgement: Fair Diagnostics Vital Signs (24Hr): Vital Signs - 24 hr 12/28/22 19:45 12/29/22 08:30 Temperature 97.6 F 97.2 F Pulse Rate 75 69 Respiratory Rate 16 16 Blood Pressure 112/57 L 111/58 L Pulse Oximetry 97 95 Oxygen Delivery Method Room Air Room Air BMI result Body Mass Index 19.8 Labs 12/22/22 08:24 Medications Medications Current Medications Acetaminophen (Acetaminophen 325 Mg Tablet) 650 mg PO Q6H PRN PRN Reason: Headache/Pain Mild Scale (1-3) Last Admin: 12/26/22 11:34 Dose: 650 mg Al Hydroxide/Mg Hydroxide (Magnesium Hydrox/Alum Hydrox 30 Ml Oral.Susp) 30 ml PO Q6H PRN PRN Reason: Heartburn/Nausea Albuterol Sulfate (Albuterol Sulfate 90 Mcg 8 Gm Inhaler) 1 puff INHALE RQ4H PRN PRN Reason: Wheezing Baclofen (Baclofen 10 Mg Tablet) 10 mg PO BID PRN PRN Reason: muscle spasm Last Admin: 12/29/22 08:25 Dose: 10 mg Benzocaine (Benzocaine 20 % Oral Gel 9 Gm Tube) 1 appl MUCOUS MEM QID PRN; Protocol PRN Reason: Pain, Moderate(Pain Scale 4-6) Last Admin: 12/27/22 08:31 Dose: 1 appl Benztropine Mesylate (Benztropine Mesylate 1 Mg Tablet) 1 mg PO BID [facility] Last Admin: 12/29/22 08:24 Dose: 1 mg Clonazepam (Clonazepam 1 Mg Tablet) 1 mg PO BID PRN PRN Reason: anxiety Last Admin: 12/28/22 19:53 Dose: 1 mg Clonazepam (Clonazepam 0.5 Mg Tablet) 0.5 mg PO DAILY PRN PRN Reason: Anxiety Last Admin: 12/28/22 17:00 Dose: 0.5 mg Diclofenac Sodium (Diclofenac Sodium Delayed Rel 75 Mg Tablet.) 75 mg PO BID [facility] Last Admin: 12/25/22 08:06 Dose: 75 mg Gabapentin (Gabapentin 600 Mg Tablet) 600 mg PO TID [facility] Last Admin: 12/29/22 08:25 Dose: 600 mg Ibuprofen (Ibuprofen 800 Mg Tablet) 800 mg PO TID PRN PRN Reason: Pain, Moderate(Pain Scale 4-6) Last Admin: 12/29/22 08:25 Dose: 800 mg Magnesium Hydroxide (Milk Of Magnesia 30 Ml Oral.Susp) 30 ml PO DAILY PRN PRN Reason: Constipation Methylphenidate HCl (Methylphenidate Hcl 10 Mg Tablet) 20 mg PO BID@0830,1330 [facility] Last Admin: 12/29/22 08:24 Dose: 20 mg Naltrexone HCl (Naltrexone Hcl 50 Mg Tablet) 50 mg PO DAILY [facility] Last Admin: 12/29/22 08:25 Dose: 50 mg Nicotine (Nicotine 14 Mg Patch.Td24) 14 mg TRANSDERMA DAILY PRN PRN Reason: nicotine cravings Last Admin: 12/29/22 08:30 Dose: 14 mg Nicotine Polacrilex (Nicotine Polacrilex Lozenge 4 Mg Lozenge) 4 mg BUCCAL Q2H PRN PRN Reason: Nicotine Cravings Last Admin: 12/29/22 08:30 Dose: 4 mg Pulmicort 90 Mcg 2 each INHALE RBID [facility] Last Admin: 12/29/22 08:30 Dose: 2 each Omeprazole (Omeprazole 20 Mg Capsule.Dr) 20 mg PO DAILY@0630 [facility] Last Admin: 12/29/22 06:37 Dose: 20 mg Oxymetazoline HCl (Oxymetazoline Hcl 0.05 % Nasal 15 Ml [place]) 2 spray NOSTRIL- B BID PRN PRN Reason: Allergic Symptoms Stop: 12/31/22 11:27 Risperidone (Risperidone 2 Mg Tablet) 2 mg PO BID [facility] Last Admin: 12/29/22 08:24 Dose: 2 mg Sodium Chloride (Sodium Chloride 0.65 % Nasal 44 Ml Sprbtl) 1 spray NOSTRIL-B Q1H PRN PRN Reason: Congestion Last Admin: 12/28/22 08:39 Dose: 1 spray Trazodone HCl (Trazodone Hcl 50 Mg Tablet) 50 mg PO BEDTIME MRX1 PRN PRN Reason: Insomnia Last Admin: 12/28/22 22:34 Dose: 50 mg Allergies Allergies Allergy/AdvReac Type Severity Reaction Status Date / Time clindamycin Allergy Intermediate Rash Verified 12/21/22 17:11 Assessment & Plan Assessment & Plan (1) Psychosis: Status: Acute Code(s): F29 - Unspecified psychosis not due to a substance or known physiological condition Plan Pt with paranoid delusions towards neighbors. One previous episode of psychosis back in 2020, apparently otherwise functioning (to some degree as she is on SSI due to mental illness). Hx of substance use- alcohol, unclear other substances. Utox was negative. PLAN 1. increase risperidone to 1mg po daily and 2mg po qhs. continue cogentin 1mg po BID. 2. aftercare planning 12/24: Move Ritalin to AM and 2PM. Add an extra dose of Klonopin 0.5 mg PRN in the afternoon. 12/25: Hold Voltaren. Start Ibuprofen 800 mg TID PRN. Start Naltrexone per addiction medicine. 12/26: Patient reports feeling pretty good today. She reports feeling hopeful after speaking to addiction medicine yesterday. Pt reports sleeping well; pt stated, I haven't slept this well in months . Continues to present with paranoia regarding neighbors. Pt reports she has been in contact with [facility] [employer] and is looking for a new place to live so I don't have to be near those neighbors anymore . She is interested in attending IOP at the [facility]. denies SI/HI/VH/AH. Risperidal increased to 2mg PO BID. 12/27: Patient reports feeling good today. denies any side effects from increase in risperidal. Patient reports finding the groups to be helpful. States she is looking forward to discharge and has made hotel arraignments until my new apartment is ready ;looking forward to possibly going to the [facility]. Patient denies SI/HI/VH/AH. She is hoping to be discharged on Monday. 12/28: Patient reports feeling stressed today. Pt easily agitated;irritable. Pt reporting she wants to stay until Monday because I have no where to go ; she reports she does not want to return to her apartment which holds her belongings or go to a hotel until she finds a new apartment. Pt stated, no one here is helping me. I can't look at my phone, the social psychologist isn't calling anyone. I want my klonopin 0.5 back . Patient then started yelling at T/W d/t writing down notes from our conversation and not having constant eye contact. Pt stated, why are you not looking at me?! ; T/W explained that her concerns were being written down to be addressed. When T/W put pen down and looked at patient to provide full attention, pt stated, you're not listening to me! . T/W stated to patient that staff are trying to meet her needs but it appears that nothing is appeasing her. Pt stated, you're right! nothing is appeasing me! . pt then walked out of office. Start: Klonopin 0.5mg PO daily PRN Pt with PI mood instability irritability DC clonidine and hydroxyzine d/t patient reporting it is not helping with my anxiety . 12/29 Add Sudafed PRN and change Risperdal all at hs. Reason for continued inpatient stay Substantial Risk for: inability to function, rapid decompensation and med/psych decompensation Time Spent With Patient Time: Total time managing care of this patient today _20___ minutes.
[2022-12-29] MEDS: Pseudoephedrine HCL 30 MG TABLET PO (12:43)
[2022-12-29] MEDS: clonazePAM 1 MG TABLET PO ×2 (13:49→22:27)
[2022-12-29] MEDS: clonazePAM 0.5 MG TABLET PO (17:35)
[2022-12-29] MEDS: Magnesium Hydrox/Alum Hydrox 30 ML ORAL.SUSP PO (19:51)
[2022-12-29] MEDS: Morphine Sulfate 4 MG/ML CARTRIDGE IM (21:13)
[2022-12-29 21:20] VITALS: BP 129/77; PULSE 69; RESP 18; TEMP 36.8; O2SAT 100
--- NOTE | 2022-12-29 21:30 | PC.NURSE ---
Given Morphine IM [id number]
[2022-12-29] MEDS: Prochlorperazine Edisylate 10 MG/2 ML VIAL 5 MG IM (21:45)
[2022-12-29] MEDS: risperiDONE 2 MG TABLET 4 MG PO (22:28)
[2022-12-30] MEDS: Omeprazole 20 MG CAPSULE.DR PO (06:38)
[2022-12-30 08:40] VITALS: BP 111/59; PULSE 76; RESP 16; TEMP 36.8; O2SAT 95
--- NOTE | 2022-12-30 08:50 | P.PNPSI_ITS ---
Subjective Subjective Date of Service: 12/30/22 Reason For Visit: Schizoaffective disorder Drpression unspecified Subjective Notes: Conditional Voluntary Interim History: Pt continues to present with paranoid delusions related to neighbors. She does not feel safe returning to her apartment as she worries she will continues to hear them harassing her through the baez. She denies SI/HI. She reports she feels much calmer and less overwhelmed. Pt last night with severe abdominal pain- RUQ, vomiting. repeat abdominal CT with contrast po/IV. Pt also constipated with pebble like stool. GI consult ordered. Bladder distended- PVR less 48cc. Review of Systems Review of Systems Constitutional : No Weight loss, No Fever, No Chills ENT/Mouth : No sore throat, No Rhinorrhea Eyes: No Swelling, No Redness Cardiovascular : No Chest Pain, No SOB, No Edema Respiratory : No Cough, No Sputum, No Wheezing Gastrointestinal : see HPI Genitourinary : NO Dysuria, No Urinary Frequency, No Hematuria, No Urgency Musculoskeletal : No joint pain, No Myalgias, No Joint Swelling Skin : No Skin Lesions, No rash Neuro : No Weakness, No Numbness, No Dizziness, No Headache Psych : + Anxiety/Panic, No Depression Heme/Lymph: No Bruising, No Lymphadenopathy Endocrine : No Polyuria, No Polydipsia All other systems reviewed and are negative. Constitutional: Reports as per HPI Eyes: Reports as per HPI Reports as per HPI Cardiovascular: Reports as per HPI Respiratory: Reports as per HPI Gastrointestinal: Reports as per HPI Musculoskeletal: Reports as per HPI Skin/Breast: Reports as per HPI Reports as per HPI Psychiatric: Reports as per HPI Endocrine: Reports as per HPI Hematologic/Lymphatic: Reports as per HPI Allergic/Immunologic: Reports as per HPI Mental Status Exam Mental Status Exam Patient Appearance: Well Grooomed and Appropriate Patient Orientation: Person, Place and Situation Level of Consciousness: Awake and Appropriate Patient Behavior: Guarded and Passive Mood Description: Calm Affect Description: Constricted Patient Cognition Impaired: Yes Ability to Follow Directions: Good Speech Pattern: Clear Diagnostics Vital Signs (24Hr): Vital Signs - 24 hr 12/29/22 21:20 Temperature 98.2 F Pulse Rate 69 Respiratory Rate 18 Blood Pressure 129/77 Pulse Oximetry 100 Oxygen Delivery Method Room Air BMI result Body Mass Index 21.8 Labs 12/30/22 11:46 12/30/22 11:46 Imaging Radiology Impressions: ITS Impressions Abdomen/Pelvis CT 12/29/22 20:50 IMPRESSION: 1. Technically suboptimal study given the absence of oral and intravenous contrast and lack of body fat. 2. On this limited images, there is a suspicious soft tissue mass identified within the left mid abdomen laterally and possible soft tissue mass versus nonopacified bowel within the central upper abdomen. Fluid containing structure in the region of the urinary bladder likely represent physiologically distended bladder and less likely to be midline cystic mass with collapsed bladder. A follow-up repeat CT scan of the abdomen and pelvis following administration of adequate amount of oral contrast (to opacify the entire small and large bowel with appropriate waiting time), and intravenous contrast is recommended including possible delayed images to opacify the urinary bladder for further clarification. Fleischner guidelines were followed. Medications Medications Current Medications Acetaminophen (Acetaminophen 325 Mg Tablet) 650 mg PO Q6H PRN PRN Reason: Headache/Pain Mild Scale (1-3) Last Admin: 12/26/22 11:34 Dose: 650 mg Al Hydroxide/Mg Hydroxide (Magnesium Hydrox/Alum Hydrox 30 Ml Oral.Susp) 30 ml PO Q6H PRN PRN Reason: Heartburn/Nausea Last Admin: 12/29/22 19:51 Dose: 30 ml Albuterol Sulfate (Albuterol Sulfate 90 Mcg 8 Gm Inhaler) 1 puff INHALE RQ4H PRN PRN Reason: Wheezing Baclofen (Baclofen 10 Mg Tablet) 10 mg PO BID PRN PRN Reason: muscle spasm Last Admin: 12/29/22 08:25 Dose: 10 mg Benzocaine (Benzocaine 20 % Oral Gel 9 Gm Tube) 1 appl MUCOUS MEM QID PRN; Protocol PRN Reason: Pain, Moderate(Pain Scale 4-6) Last Admin: 12/27/22 08:31 Dose: 1 appl Benztropine Mesylate (Benztropine Mesylate 1 Mg Tablet) 1 mg PO BID JULIA Last Admin: 12/29/22 22:27 Dose: 1 mg Clonazepam (Clonazepam 1 Mg Tablet) 1 mg PO BID PRN PRN Reason: anxiety Last Admin: 12/29/22 22:27 Dose: 1 mg Clonazepam (Clonazepam 0.5 Mg Tablet) 0.5 mg PO DAILY PRN PRN Reason: Anxiety Last Admin: 12/29/22 17:35 Dose: 0.5 mg Diclofenac Sodium (Diclofenac Sodium Delayed Rel 75 Mg Tablet.Dr) 75 mg PO BID [facility] Last Admin: 12/25/22 08:06 Dose: 75 mg Gabapentin (Gabapentin 600 Mg Tablet) 600 mg PO TID [facility] Last Admin: 12/29/22 22:28 Dose: 600 mg Ibuprofen (Ibuprofen 800 Mg Tablet) 800 mg PO TID PRN PRN Reason: Pain, Moderate(Pain Scale 4-6) Last Admin: 12/29/22 08:25 Dose: 800 mg Magnesium Hydroxide (Milk Of Magnesia 30 Ml Oral.Susp) 30 ml PO DAILY PRN PRN Reason: Constipation Methylphenidate HCl (Methylphenidate Hcl 10 Mg Tablet) 20 mg PO BID@0830,1330 [facility] Last Admin: 12/29/22 13:50 Dose: 20 mg Naltrexone HCl (Naltrexone Hcl 50 Mg Tablet) 50 mg PO DAILY [facility] Last Admin: 12/29/22 08:25 Dose: 50 mg Nicotine (Nicotine 14 Mg Patch.Td24) 14 mg TRANSDERMA DAILY PRN PRN Reason: nicotine cravings Last Admin: 12/29/22 08:30 Dose: 14 mg Nicotine Polacrilex (Nicotine Polacrilex Lozenge 4 Mg Lozenge) 4 mg BUCCAL Q2H PRN PRN Reason: Nicotine Cravings Last Admin: 12/29/22 18:23 Dose: 4 mg Pulmicort 90 Mcg 2 each INHALE RBID [facility] Last Admin: 12/29/22 22:29 Dose: 2 each Omeprazole (Omeprazole 20 Mg Capsule.Dr) 20 mg PO DAILY@0630 [facility] Last Admin: 12/30/22 06:38 Dose: 20 mg Oxymetazoline HCl (Oxymetazoline Hcl 0.05 % Nasal 15 Ml [place]) 2 spray NOSTRIL- B BID PRN PRN Reason: Allergic Symptoms Stop: 12/31/22 11:27 Prochlorperazine Edisylate (Prochlorperazine Edisylate 10 Mg/2 Ml Vial) 5 mg IM Q6H PRN PRN Reason: Nausea and Vomiting Last Admin: 12/29/22 21:45 Dose: 5 mg Pseudoephedrine HCl (Pseudoephedrine Hcl 30 Mg Tablet) 30 mg PO Q4H PRN PRN Reason: Nasal Congestion Last Admin: 12/29/22 12:43 Dose: 30 mg Risperidone (Risperidone 2 Mg Tablet) 4 mg PO BEDTIME [facility]UL[facility] Last Admin: 12/29/22 22:28 Dose: 4 mg Sodium Chloride (Sodium Chloride 0.65 % Nasal 44 Ml Sprbtl) 1 spray NOSTRIL-B Q1H PRN PRN Reason: Congestion Last Admin: 12/28/22 08:39 Dose: 1 spray Trazodone HCl (Trazodone Hcl 50 Mg Tablet) 50 mg PO BEDTIME MRX1 PRN PRN Reason: Insomnia Last Admin: 12/28/22 22:34 Dose: 50 mg Allergies Allergies Allergy/AdvReac Type Severity Reaction Status Date / Time clindamycin Allergy Intermediate Rash Verified 12/21/22 17:11 Assessment & Plan Assessment & Plan (1) Psychosis: Status: Acute Code(s): F29 - Unspecified psychosis not due to a substance or known physiological condition Plan Pt with paranoid delusions towards neighbors. One previous episode of psychosis back in 2020, apparently otherwise functioning (to some degree as she is on SSI due to mental illness). Hx of substance use- alcohol, unclear other substances. Utox was negative. PLAN 1. increase risperidone to 1mg po daily and 2mg po qhs. continue cogentin 1mg po BID. 2. aftercare planning 12/24: Move Ritalin to AM and 2PM. Add an extra dose of Klonopin 0.5 mg PRN in the afternoon. 12/25: Hold Voltaren. Start Ibuprofen 800 mg TID PRN. Start Naltrexone per addiction medicine. 12/26: Patient reports feeling pretty good today. She reports feeling hopeful after speaking to addiction medicine yesterday. Pt reports sleeping well; pt stated, I haven't slept this well in months . Continues to present with paranoia regarding neighbors. Pt reports she has been in contact with [facility] and is looking for a new place to live so I don't have to be near those neighbors anymore . She is interested in attending IOP at the [facility]. denies SI/HI/VH/AH. Risperidal increased to 2mg PO BID. 12/27: Patient reports feeling good today. denies any side effects from increase in risperidal. Patient reports finding the groups to be helpful. States she is looking forward to discharge and has made hotel arraignments until my new apartment is ready ;looking forward to possibly going to the [facility]. Patient denies SI/HI/VH/AH. She is hoping to be discharged on Monday. 12/28: Patient reports feeling stressed today. Pt easily agitated;irritable. Pt reporting she wants to stay until Monday because I have no where to go ; she reports she does not want to return to her apartment which holds her belongings or go to a hotel until she finds a new apartment. Pt stated, no one here is helping me. I can't look at my phone, the social welfare administrator isn't calling anyone. I want my klonopin 0.5 back . Patient then started yelling at T/W d/t writing down notes from our conversation and not having constant eye contact. Pt stated, why are you not looking at me?! ; T/W explained that her concerns were being written down to be addressed. When T/W put pen down and looked at patient to provide full attention, pt stated, you're not listening to me! . T/W stated to patient that staff are trying to meet her needs but it appears that nothing is appeasing her. Pt stated, you're right! nothing is appeasing me! . pt then walked out of office. Start: Klonopin 0.5mg PO daily PRN Pt with PI mood instability irritability DC clonidine and hydroxyzine d/t patient reporting it is not helping with my anxiety . 12/29 Add Sudafed PRN and change Risperdal all at hs. 12/30- GI consult ordered- recommended repeat, abdominal CT with contrast (ordered). pt constipated, ordered miralax. simethicone bloating. Reason for continued inpatient stay Substantial Risk for: inability to function Time Spent With Patient Time: Total time managing care of this patient today ____ minutes.
[2022-12-30] MEDS: Gabapentin 600 MG TABLET PO ×2 (09:09→14:23)
[2022-12-30] MEDS: Methylphenidate HCl 10 MG TABLET 20 MG PO ×2 (09:09→13:41)
[2022-12-30] MEDS: Naltrexone HCl 50 MG TABLET PO (09:09)
[2022-12-30] MEDS: Benztropine Mesylate 1 MG TABLET PO (09:09)
[2022-12-30] MEDS: Sodium Chloride 0.65 % Nasal 44 ML SPRBTL 1 SPRAY NOSTRIL-B (09:09)
[2022-12-30] MEDS: Pseudoephedrine HCL 30 MG TABLET PO (09:16)
[2022-12-30] MEDS: Milk of Magnesia 30 ML ORAL.SUSP PO (09:16)
[2022-12-30] MEDS: Baclofen 10 MG TABLET PO (09:16)
[2022-12-30] MEDS: Nicotine Polacrilex Lozenge 4 MG LOZENGE BUCCAL (10:43)
[2022-12-30] MEDS: clonazePAM 1 MG TABLET PO ×2 (10:47→19:26)
[2022-12-30 11:52] LABS: MANUAL DIFF FLAG NO
[2022-12-30 11:54] LABS: Basophils Percent Auto 0.4 % (0-2); Eosinophils Absolute Auto 0.1 X10*3/uL (0.0-0.4); Hematocrit 36.9 % (37.0-47.0); Hemoglobin 12.5 g/dl (12.0-16.0); Imm Gran Abs Auto 0.02 X10*3/uL (0.00-0.03); Imm Gran Pct Auto 0.3 % (0.0-0.4); Lymphocytes Absolute Auto 1.7 X10*3/uL (1.2-4.9); Mean Corpuscular HGB Conc 33.9 g/dl (31.0-35.0); Mean Corpuscular Hemoglobin 31.8 pg (27.0-33.0); Mean Corpuscular Volume 93.9 fL (80.0-98.0); Mean Platelet Volume 8.6 fL (9.4-12.3); Monocytes Absolute Auto 0.5 X10*3/uL (0.1-1.2); Neutrophils Absolute Auto 4.6 x10*3/uL (2.0-8.3); Neutrophils Percent Auto 67.3 % (45-73); Platelet Count 236 X10*3/uL (160-400); Red Blood Count 3.93 X10*6/uL (4.20-5.50); Red Cell Distribution Width 11.6 % (11.0-16.0); White Blood Count 6.9 X10*3/uL (4.8-10.8)
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
[2022-12-30 12:10] LABS: Alanine Aminotransferase 36 U/L (0-31); Albumin Level 3.9 g/dL (3.5-5.0); Alkaline Phosphatase 50 U/L (39-117); Anion Gap 7 (12-20); Aspartate Amino Transferase 32 U/L (5-31); Bilirubin Total 0.3 mg/dL (0.0-1.0); Blood Urea Nitrogen 9 mg/dL (9-16); Calcium 8.9 mg/dL (8.4-10.2); Carbon Dioxide 30 mmol/L (22-29); Chloride 107 mmol/L (96-108); Creatinine Clr Calc Pharmacy 89.3; Estimated Glomerular Filt Rate > 60; Glucose Fasting 133 mg/dL (60-99); Lipase 16 U/L (8-78); Sodium 140 mmol/L (135-145); Total Protein 6.4 g/dL (6.5-8.0)
[2022-12-30] MEDS: Metoclopramide HCl 5 MG TABLET PO (12:21)
[2022-12-30] MEDS: Simethicone 80 MG TAB.CHEW PO ×2 (12:21→16:17)
[2022-12-30] MEDS: polyethylene glycoL 3350 17 GM POWD.PACK PO (12:22)
[2022-12-30] MEDS: Acetaminophen 325 MG TABLET 650 MG PO (14:32)
[2022-12-30] MEDS: Morphine Sulfate 4 MG/ML CARTRIDGE IM (15:16)
[2022-12-30] MEDS: iohexoL 350 MG/ML 100 ML INFUS..BTL IV (16:02)
[2022-12-30] MEDS: Barium Sulfate Oral (Mocha) 450 ML ORAL.SUSP 900 ML PO (16:03)
[2022-12-30] MEDS: clonazePAM 0.5 MG TABLET PO (16:17)
--- NOTE | 2022-12-30 16:55 | PC.NURSE ---
Patient c/o increasing abdominal pain to TROLLEY COACH DRIVER when meeting today. TROLLEY COACH DRIVER ordered a GI consult and a repeat Abdominal CT scan with IV contrast to be done. Pt was provided the contrast prep to drink. Pt tolerated the prep until it was complete. Pt then c/o increased abdominal pain. Pt was provided Tylenol as ordered. Pt was then seen for GI consult and a post void bladder scan was ordered. Pt's PV was 93cc and TROLLEY COACH DRIVER was notified. At 1500 pt was complaining of sharp, cramp like pain, guarding abdomen and trying to use positioning to relieve pain. Pt was asking for morphine as she had the day prior. TROLLEY COACH DRIVER and GI agreed, given 1x dose of Morphine Sulfate 4mg at [address] scan completed at 1558. Pt back on unit resting comfortably in room, scan results pending.
--- NOTE | 2022-12-30 19:27 | PC.NURSE ---
Pt became agitated with TW when the CT results were not available yet for a MD to read. Pt then c/o pain in abdomen and refusing Tylenol or Motrin saying, they won't do anything. Pt wanted more MS and was angry when educated on the negative effects that could have on her constipation concerns. Pt offered and provided klonopin for her anxiety. TW contacted [facility], speaking to Rosalina to process the results. [facility] will process th results within 30 minutes.
[2022-12-30 19:48] VITALS: BP 118/71; PULSE 68; RESP 18; TEMP 36.6
--- NOTE | 2022-12-30 20:52 | PM.EVENT ---
Event Note Date of Service: 12/30/22 Event Note: Pt seen in follow up for severe intermittent abdominal pain. Tell me the pain is primarily right sided radiating around to the back. Describes a sharp cramping 10/10 pain that is relieved by morphine. She says this is only brought on by PO ingestion (barium earlier, dinner, etc). There is constant nausea and one episode non bloody emesis. Had follow-up CT of the abdomen/pelvis earlier today which showed the soft tissue mass in left mid abdomen previously seen on noncontrast CT was no longer seen and likely represented unopacified bowel on prior exam. There is also a residual area of soft tissue in the left mid abdominal associated with bowel loops also probably representing unopacified bowel versus bowel thickening. Consider repeat exam in 1-3 months with oral contrast. Again noted is retained stool throughout the colon and partial twisting of the central mesentery without bowel dilatation. On exam there is mild abd distension with RUQ and RLQ ttp without any guarding or rebound. +BS. At this time, suspect pain is likely r/t stool burden. Pt is on milk of mag prn and miralax daily which should be continued. Give fleet enema x1. One dose 2mg IM morphine ordered. Discussed that further narcotics are not advised due to proabably of increased constipation. Will also add lidocaine patch. Encourage PO hydration. Further plan per GI. Time Spent With Patient Time: Total time managing care of this patient today ____ minutes.
[2022-12-30] MEDS: Sodium Phosphate,Mono-Dibasic 133 ML ENEMA PR (22:29)
[2022-12-30] MEDS: Lidocaine 4 % Patch ADH..PATCH 1 PATCH TRANSDERMA (23:16)
[2022-12-31] MEDS: Benztropine Mesylate 1 MG TABLET PO (00:57)
[2022-12-31] MEDS: Gabapentin 600 MG TABLET PO ×4 (00:57→21:07)
[2022-12-31] MEDS: risperiDONE 2 MG TABLET 4 MG PO ×2 (00:58→21:08)
[2022-12-31] MEDS: Simethicone 80 MG TAB.CHEW PO ×5 (00:58→21:07)
[2022-12-31] MEDS: Morphine Sulfate 4 MG/ML CARTRIDGE 2 MG IM (01:04)
[2022-12-31 07:15] VITALS: BP 110/63; PULSE 69; TEMP 36.7; O2SAT 94
[2022-12-31] MEDS: polyethylene glycoL 3350 17 GM POWD.PACK PO ×2 (09:30→23:16)
[2022-12-31] MEDS: Sodium Chloride 0.65 % Nasal 44 ML SPRBTL 1 SPRAY NOSTRIL-B (09:30)
[2022-12-31] MEDS: Nicotine 14 MG PATCH.TD24 TRANSDERMA (09:31)
[2022-12-31] MEDS: Nicotine Polacrilex Lozenge 4 MG LOZENGE BUCCAL ×4 (09:32→21:46)
[2022-12-31] MEDS: Pseudoephedrine HCL 30 MG TABLET PO (09:32)
[2022-12-31] MEDS: Naltrexone HCl 50 MG TABLET PO (09:32)
[2022-12-31] MEDS: Omeprazole 20 MG CAPSULE.DR PO (09:32)
[2022-12-31] MEDS: Methylphenidate HCl 10 MG TABLET 20 MG PO ×2 (09:33→12:58)
[2022-12-31] MEDS: Baclofen 10 MG TABLET PO (09:33)
[2022-12-31] MEDS: Docusate Sodium 100 MG CAPSULE PO (09:55)
[2022-12-31] MEDS: bisacodyL 5 MG TABLET.DR 10 MG PO (09:55)
[2022-12-31] MEDS: clonazePAM 0.5 MG TABLET PO (12:58)
--- NOTE | 2022-12-31 14:02 | P.PNPSI_ITS ---
Subjective Subjective Date of Service: 12/31/22 Reason For Visit: Schizoaffective disorder Drpression unspecified Subjective Notes: Conditional Voluntary Interim History: Pt slept through the night. She reports abdominal pain is less. Had go-lyte, no BM. repeat KUB reordered- some improvement but still constipation. Hospitalist also following. pt visible on the unit. No SI/HI. Medication Compliance: Yes Review of Systems Review of Systems Constitutional : No Weight loss, No Fever, No Chills ENT/Mouth : No sore throat, No Rhinorrhea Eyes: No Swelling, No Redness Cardiovascular : No Chest Pain, No SOB, No Edema Respiratory : No Cough, No Sputum, No Wheezing Gastrointestinal : see HPI Genitourinary : NO Dysuria, No Urinary Frequency, No Hematuria, No Urgency Musculoskeletal : No joint pain, No Myalgias, No Joint Swelling Skin : No Skin Lesions, No rash Neuro : No Weakness, No Numbness, No Dizziness, No Headache Psych : + Anxiety/Panic, No Depression Heme/Lymph: No Bruising, No Lymphadenopathy Endocrine : No Polyuria, No Polydipsia All other systems reviewed and are negative. Constitutional: Reports as per HPI Eyes: Reports as per HPI Reports as per HPI Cardiovascular: Reports as per HPI Respiratory: Reports as per HPI Gastrointestinal: Reports as per HPI Musculoskeletal: Reports as per HPI Skin/Breast: Reports as per HPI Reports as per HPI Psychiatric: Reports as per HPI Endocrine: Reports as per HPI Hematologic/Lymphatic: Reports as per HPI Allergic/Immunologic: Reports as per HPI Mental Status Exam Mental Status Exam Narrative: Pt is alert and oriented; behavior is agitated, yelling; dressed in casual attire; mood is irritable; eye contact appropriate; Speech is normal rate, loud volume; no psychomotor agitation/retardation present; thought process is organized and goal directed; Thought content is on tx; denies SI/HI. There is no evidence of perceptual disturbance. Patient Appearance: Well Grooomed and Appropriate Patient Orientation: Person, Place and Situation Level of Consciousness: Awake and Appropriate Patient Behavior: Guarded and Passive Mood Description: Calm Affect Description: Constricted Patient Cognition Impaired: Yes Ability to Follow Directions: Good Speech Pattern: Clear Diagnostics Vital Signs (24Hr): Vital Signs - 24 hr 12/30/22 19:48 12/31/22 07:15 Temperature 97.8 F 98.1 F Pulse Rate 68 69 Respiratory Rate 18 Blood Pressure 118/71 110/63 Pulse Oximetry 94 Oxygen Delivery Method Room Air Room Air BMI result Body Mass Index 21.8 Labs 01/01/23 12:52 01/01/23 12:53 Labs: Laboratory Results - last 48 hr 12/30/22 11:46 WBC 6.9 RBC 3.93 L Hgb 12.5 Hct 36.9 L MCV 93.9 MCH 31.8 MCHC 33.9 RDW 11.6 Plt Count 236 MPV 8.6 L Immature Gran % (Auto) 0.3 Neut % (Auto) 67.3 Lymph % (Auto) 24.0 [place] % (Auto) 7.0 Eos % (Auto) 1.0 Baso % (Auto) 0.4 Lymph # (Auto) 1.7 [place] # (Auto) 0.5 Eos # (Auto) 0.1 Baso # (Auto) 0.0 Abs Immat Gran (auto) 0.02 Absolute Neuts (auto) 4.6 Absolute Nucleated RBC 0.000 Nucleated RBC % (auto) 0.0 Sodium 140 Potassium 4.0 Chloride 107 Carbon Dioxide 30 H Anion Gap 7 L BUN 9 Creatinine 0.68 Estim Creat Clear Calc 89.3 Estimated GFR > 60 Fasting Glucose 133 H Calcium 8.9 Total Bilirubin 0.3 AST 32 H ALT 36 H Alkaline Phosphatase 50 Total Protein 6.4 L Albumin 3.9 Lipase 16 Imaging Radiology Impressions: ITS Impressions Abdomen/Pelvis CT 12/29/22 20:50 IMPRESSION: 1. Technically suboptimal study given the absence of oral and intravenous contrast and lack of body fat. 2. On this limited images, there is a suspicious soft tissue mass identified within the left mid abdomen laterally and possible soft tissue mass versus nonopacified bowel within the central upper abdomen. Fluid containing structure in the region of the urinary bladder likely represent physiologically distended bladder and less likely to be midline cystic mass with collapsed bladder. A follow-up repeat CT scan of the abdomen and pelvis following administration of adequate amount of oral contrast (to opacify the entire small and large bowel with appropriate waiting time), and intravenous contrast is recommended including possible delayed images to opacify the urinary bladder for further clarification. Fleischner guidelines were followed. Abdomen/Pelvis CT 12/30/22 16:03 IMPRESSION: The soft tissue mass left mid abdomen is not seen as previously described and likely represented unopacified bowel on prior exam. There is a residual area of soft tissue left mid abdominal associated with bowel loops also possibly unopacified bowel versus bowel thickening. Consider repeat examination in 1-3 months with oral contrast. There is retained stool throughout the colon. There is partial twisting of the central mesentery without bowel dilatation of uncertain significance. The appendix is not seen. Moderate hiatal hernia. Common bile duct and intrahepatic biliary air is noted. Fleischner guidelines were followed. Medications Medications Current Medications Acetaminophen (Acetaminophen 325 Mg Tablet) 650 mg PO Q6H PRN PRN Reason: Headache/Pain Mild Scale (1-3) Last Admin: 12/30/22 14:32 Dose: 650 mg Al Hydroxide/Mg Hydroxide (Magnesium Hydrox/Alum Hydrox 30 Ml Oral.Susp) 30 ml PO Q6H PRN PRN Reason: Heartburn/Nausea Last Admin: 12/29/22 19:51 Dose: 30 ml Albuterol Sulfate (Albuterol Sulfate 90 Mcg 8 Gm Inhaler) 1 puff INHALE RQ4H PRN PRN Reason: Wheezing Baclofen (Baclofen 10 Mg Tablet) 10 mg PO BID PRN PRN Reason: muscle spasm Last Admin: 12/31/22 09:33 Dose: 10 mg Benzocaine (Benzocaine 20 % Oral Gel 9 Gm Tube) 1 appl MUCOUS MEM QID PRN; Protocol PRN Reason: Pain, Moderate(Pain Scale 4-6) Last Admin: 12/27/22 08:31 Dose: 1 appl Bisacodyl (Bisacodyl 5 Mg Tablet.) 10 mg PO DAILY [facility] Last Admin: 12/31/22 09:55 Dose: 10 mg Clonazepam (Clonazepam 1 Mg Tablet) 1 mg PO BID PRN PRN Reason: anxiety Last Admin: 12/30/22 19:26 Dose: 1 mg Clonazepam (Clonazepam 0.5 Mg Tablet) 0.5 mg PO DAILY PRN PRN Reason: Anxiety Last Admin: 12/31/22 12:58 Dose: 0.5 mg Diclofenac Sodium (Diclofenac Sodium Delayed Rel 75 Mg Tablet.) 75 mg PO BID [facility] Last Admin: 12/25/22 08:06 Dose: 75 mg Docusate Sodium (Docusate Sodium 100 Mg Capsule) 100 mg PO BID [facility] Last Admin: 12/31/22 09:55 Dose: 100 mg Gabapentin (Gabapentin 600 Mg Tablet) 600 mg PO TID [facility] Last Admin: 12/31/22 09:33 Dose: 600 mg Ibuprofen (Ibuprofen 800 Mg Tablet) 800 mg PO TID PRN PRN Reason: Pain, Moderate(Pain Scale 4-6) Last Admin: 12/29/22 08:25 Dose: 800 mg Magnesium Hydroxide (Milk Of Magnesia 30 Ml Oral.Susp) 30 ml PO DAILY PRN PRN Reason: Constipation Last Admin: 12/30/22 09:16 Dose: 30 ml Methylphenidate HCl (Methylphenidate Hcl 10 Mg Tablet) 20 mg PO BID@0830,1330 [facility] Last Admin: 12/31/22 12:58 Dose: 20 mg Naltrexone HCl (Naltrexone Hcl 50 Mg Tablet) 50 mg PO DAILY [facility] Last Admin: 12/31/22 09:32 Dose: 50 mg Nicotine (Nicotine 14 Mg Patch.Td24) 14 mg TRANSDERMA DAILY PRN PRN Reason: nicotine cravings Last Admin: 12/31/22 09:31 Dose: 14 mg Nicotine Polacrilex (Nicotine Polacrilex Lozenge 4 Mg Lozenge) 4 mg BUCCAL Q2H PRN PRN Reason: Nicotine Cravings Last Admin: 12/31/22 13:01 Dose: 4 mg Pulmicort 90 Mcg 2 each INHALE RBID [facility] Last Admin: 12/31/22 09:30 Dose: Not Given Omeprazole (Omeprazole 20 Mg Capsule.Dr) 20 mg PO DAILY@0630 [facility] Last Admin: 12/31/22 09:32 Dose: 20 mg Polyethylene Glycol (Polyethylene Glycol 3350 17 Gm Powd.Pack) 17 gm PO DAILY [facility] Last Admin: 12/31/22 09:30 Dose: 17 gm Polyethylene Glycol (Polyethylene Glycol 3350 17 Gm Powd.Pack) 17 gm PO BID [facility] Last Admin: 12/31/22 09:56 Dose: Not Given Prochlorperazine Edisylate (Prochlorperazine Edisylate 10 Mg/2 Ml Vial) 5 mg IM Q6H PRN PRN Reason: Nausea and Vomiting Last Admin: 12/29/22 21:45 Dose: 5 mg Pseudoephedrine HCl (Pseudoephedrine Hcl 30 Mg Tablet) 30 mg PO Q4H PRN PRN Reason: Nasal Congestion Last Admin: 12/31/22 09:32 Dose: 30 mg Risperidone (Risperidone 2 Mg Tablet) 4 mg PO BEDTIME [facility] Last Admin: 12/31/22 00:58 Dose: 4 mg Simethicone (Simethicone 80 Mg Tab.Chew) 80 mg PO QIDWMHS JULIA Last Admin: 12/31/22 12:58 Dose: 80 mg Sodium Biphosphate/Sodium Phosphate (Sodium Phosphate,[place]-Dibasic 133 Ml Enema) 133 ml [place] ONCE PRN PRN Reason: Constipation Last Admin: 12/30/22 22:29 Dose: 133 ml Sodium Chloride (Sodium Chloride 0.65 % Nasal 44 Ml Sprbtl) 1 spray NOSTRIL-B Q1H PRN PRN Reason: Congestion Last Admin: 12/31/22 09:30 Dose: 1 spray Trazodone HCl (Trazodone Hcl 50 Mg Tablet) 50 mg PO BEDTIME MRX1 PRN PRN Reason: Insomnia Last Admin: 12/28/22 22:34 Dose: 50 mg Allergies Allergies Allergy/AdvReac Type Severity Reaction Status Date / Time clindamycin Allergy Intermediate Rash Verified 12/21/22 17:11 Assessment & Plan Assessment & Plan (1) Psychosis: Status: Acute Code(s): F29 - Unspecified psychosis not due to a substance or known physiological condition Plan Pt with paranoid delusions towards neighbors. One previous episode of psychosis back in 2020, apparently otherwise functioning (to some degree as she is on SSI due to mental illness). Hx of substance use- alcohol, unclear other substances. Utox was negative. PLAN 1. increase risperidone to 1mg po daily and 2mg po qhs. continue cogentin 1mg po BID. 2. aftercare planning 12/24: Move Ritalin to AM and 2PM. Add an extra dose of Klonopin 0.5 mg PRN in the afternoon. 12/25: Hold Voltaren. Start Ibuprofen 800 mg TID PRN. Start Naltrexone per addiction medicine. 12/26: Patient reports feeling pretty good today. She reports feeling hopeful after speaking to addiction medicine yesterday. Pt reports sleeping well; pt stated, I haven't slept this well in months . Continues to present with paranoia regarding neighbors. Pt reports she has been in contact with [facility] and is looking for a new place to live so I don't have to be near those neighbors anymore . She is interested in attending IOP at the [facility]. denies SI/HI/VH/AH. Risperidal increased to 2mg PO BID. 12/27: Patient reports feeling good today. denies any side effects from increase in risperidal. Patient reports finding the groups to be helpful. States she is looking forward to discharge and has made hotel arraignments until my new apartment is ready ;looking forward to possibly going to the [facility]. Patient denies SI/HI/VH/AH. She is hoping to be discharged on Monday. 12/28: Patient reports feeling stressed today. Pt easily agitated;irritable. Pt reporting she wants to stay until Monday because I have no where to go ; she reports she does not want to return to her apartment which holds her belongings or go to a hotel until she finds a new apartment. Pt stated, no one here is helping me. I can't look at my phone, the community mental health social worker isn't calling anyone. I want my klonopin 0.5 back . Patient then started yelling at T/W d/t writing down notes from our conversation and not having constant eye contact. Pt stated, why are you not looking at me?! ; T/W explained that her concerns were being written down to be addressed. When T/W put pen down and looked at patient to provide full attention, pt stated, you're not listening to me! . T/W stated to patient that staff are trying to meet her needs but it appears that nothing is appeasing her. Pt stated, you're right! nothing is appeasing me! . pt then walked out of office. Start: Klonopin 0.5mg PO daily PRN Pt with PI mood instability irritability DC clonidine and hydroxyzine d/t patient reporting it is not helping with my anxiety . 12/29 Add Sudafed PRN and change Risperdal all at hs. 12/30- GI consult ordered- recommended repeat, abdominal CT with contrast (ordered). pt constipated, ordered miralax. simethicone bloating. 12/31- KUB ordered. GI Dr. Nguyễn and Hospitalist Sally Goddard following- until constipation and bladder distension not improved she may need medical admission. cogentin discontinued due to anticholigernic properties worsening constipation and urinary retention (no eps) Patient educated on: diagnosis and medication risk/benefits Informed Consent: understands Reason for continued inpatient stay Substantial Risk for: stable for discharge Time Spent With Patient Time: Total time managing care of this patient today __30__ minutes.
[2022-12-31] MEDS: clonazePAM 1 MG TABLET PO ×2 (16:53→21:08)
--- NOTE | 2022-12-31 19:23 | PM.EVENT ---
Event Note Date of Service: 12/31/22 Event Note: Pt seen in follow up for severe abdominal pain and constipation. Received fleet enema last night with small BM and some relief of symptoms. NO longer having severe pain but reports ongoing moderate pain after eating anything. No further nausea or vomiting. Feels bloated and full. Cogentin has been discontinued. Continues on docusate BID and miralax daily. Reports walking 2mi today in the halls and drinking plenty of water. Encouraged ongoing hydration and mobility. Discussed with Dr. Nguyễn. Given stool burden that remains in right colon will forgo repeat enema and golytely is ordered. Can consider dicyclomine as alternative to narcotic pain medication if pain persists but this could possibly exacerbate constipation. May need scope in future. Will reevaluate in the am. Time Spent With Patient Time: Total time managing care of this patient today ____ minutes.
[2022-12-31 19:30] VITALS: BP 112/56; PULSE 85; RESP 16; TEMP 36
[2022-12-31] MEDS: Prochlorperazine Edisylate 10 MG/2 ML VIAL 5 MG IM (23:12)
[2022-12-31] MEDS: traZODone HCL 50 MG TABLET PO (23:59)
[2023-01-01] MEDS: PEG 3350/Na Sulf,Bicarb,Cl/KCL 4,000 ML SOLN.RECON 4000 ML PO (01:00)
[2023-01-01] MEDS: Dicyclomine HCl 10 MG CAPSULE PO (06:16)
--- NOTE | 2023-01-01 07:18 | PC.NURSE ---
pt has completed drinking approximately 3000 ml of go lytely prep 1. she has not had any results from prep 2. pt has not voided since last night at approximately 2300 3. bladder scan performed and>240 ml urine obtained. 4. bentyl 10 mg po given for abdominal cramping. the previous documentation imparted to provider Bernadette Flannery plan straight cath to be placed.
[2023-01-01 07:25] VITALS: BP 129/66; PULSE 71; RESP 16; TEMP 36.4; O2SAT 96
[2023-01-01] MEDS: Gabapentin 600 MG TABLET PO ×3 (08:36→22:25)
[2023-01-01] MEDS: clonazePAM 0.5 MG TABLET PO (08:36)
--- NOTE | 2023-01-01 11:24 | ECG_ITS ---
Test Reason : diaphoresis Blood Pressure : / mmHG Vent. Rate : 070 BPM Atrial Rate : 070 BPM P-R Int : 158 ms QRS Dur : 090 ms QT Int : 412 ms P-R-T Axes : 069 036 064 degrees QTc Int : 444 ms Normal sinus rhythm Low voltage QRS RSR' or QR pattern in V1 suggests right ventricular conduction delay Abnormal ECG No previous ECGs available Referred By: Sally Goddard Electronically Signed By:KELLE VU MD
[2023-01-01] MEDS: Baclofen 10 MG TABLET PO (11:30)
[2023-01-01] MEDS: Methylphenidate HCl 10 MG TABLET 20 MG PO ×2 (11:30→16:19)
[2023-01-01] MEDS: Naltrexone HCl 50 MG TABLET PO (11:31)
--- NOTE | 2023-01-01 11:44 | P.EN_ITS ---
Event Note Date of Service: 01/01/23 Event Note: Pt seen in follow up for severe abd pain and severe constipation. Pt started go- lytely around 11pm last night and finished bottle this morning. On, re-exam this morning, patient has had no bowel movement since initiating the PEG. She is curled on her side with moderate pain. She is diaphoretic and weak appearing. Her abdomen is significantly distended with diffuse tenderness to palpation but no guarding or rebound. +distant bowel sounds. She has been drinking fluids but has not been eating to avoid worsening her pain (which has been the most significant trigger for her). Has not urinated in 12+ hrs per patient. Reports suprapubic fullness. Denies any nausea or vomiting. She is afebrile, VSS. Discussed with Dr. Nguyễn, given history of obstructions and twisting of mesentery noted on CT scans, she is at risk for reobstruction though this was not noted on prior imaging studies. Plan: -stat KUB ordered -Stat straight cath -Check CBC, BMP, ESR, CRP -General surgery consult -Hold constipation meds for now -Check EKG given diaphoresis Plan discussed with Bernadette Flannery Will continue following Time Spent With Patient Time: Total time managing care of this patient today ____ minutes.
[2023-01-01 13:01] LABS: MANUAL DIFF FLAG NO
[2023-01-01 13:15] LABS: Basophils Percent Auto 0.3 % (0-2); Eosinophils Absolute Auto 0.1 X10*3/uL (0.0-0.4); Eosinophils Percent Auto 1.4 % (0-4); Hematocrit 35.3 % (37.0-47.0); Hemoglobin 11.8 g/dl (12.0-16.0); Imm Gran Abs Auto 0.02 X10*3/uL (0.00-0.03); Imm Gran Pct Auto 0.3 % (0.0-0.4); Lymphocytes Absolute Auto 1.8 X10*3/uL (1.2-4.9); Lymphocytes Percent Auto 28.3 % (20-40); Mean Corpuscular HGB Conc 33.4 g/dl (31.0-35.0); Mean Corpuscular Hemoglobin 31.6 pg (27.0-33.0); Mean Corpuscular Volume 94.6 fL (80.0-98.0); Mean Platelet Volume 9.1 fL (9.4-12.3); Monocytes Absolute Auto 0.5 X10*3/uL (0.1-1.2); Monocytes Percent Auto 7.1 % (2-11); Neutrophils Absolute Auto 4.1 x10*3/uL (2.0-8.3); Neutrophils Percent Auto 62.6 % (45-73); Platelet Count 241 X10*3/uL (160-400); Red Blood Count 3.73 X10*6/uL (4.20-5.50); Red Cell Distribution Width 11.9 % (11.0-16.0); White Blood Count 6.5 X10*3/uL (4.8-10.8)
[2023-01-01] MEDS: Nicotine 14 MG PATCH.TD24 TRANSDERMA (13:18)
[2023-01-01] MEDS: Simethicone 80 MG TAB.CHEW PO ×3 (13:19→22:29)
[2023-01-01 13:29] LABS: Appearance Urine Cloudy; Color Urine Yellow; Glucose Urine UA Negative (Negative); Leukocyte Esterase Urine Negative (Negative); Nitrite Urine Negative (Negative); PH >= 9.0 (5.0-9.0); Specific Gravity - Urine 1.015 (1.005-1.025); Urine Blood Negative (Negative); Urine Ketones Negative (Negative); Urine Protein Negative (Neg-Trace)
[2023-01-01 13:34] LABS: Anion Gap 10 (12-20); Blood Urea Nitrogen 7 mg/dL (9-16); C Reactive Protein < 0.10 mg/dL (< or = 0.50); Calcium 8.6 mg/dL (8.4-10.2); Carbon Dioxide 31 mmol/L (22-29); Chloride 104 mmol/L (96-108); Creatinine Clr Calc Pharmacy 87.9; Estimated Glomerular Filt Rate > 60; Glucose Random 135 mg/dL (60-115); Potassium 3.9 mmol/L (3.3-5.1); Sodium 141 mmol/L (135-145)
[2023-01-01 13:56] LABS: Erythrocyte Sedimentation Rate 5 MM/HR (0-20)
[2023-01-01] MEDS: Nicotine Polacrilex Lozenge 4 MG LOZENGE BUCCAL ×2 (14:07→22:43)
[2023-01-01] MEDS: Ondansetron ODT 8 MG TAB.RAPDIS TRANSLINGU (14:43)
[2023-01-01] MEDS: Acetaminophen 325 MG TABLET 650 MG PO (14:47)
--- NOTE | 2023-01-01 14:52 | P.PNPSI_ITS ---
Subjective Subjective Date of Service: 01/01/23 Reason For Visit: Schizoaffective disorder Drpression unspecified Subjective Notes: Conditional Voluntary Interim History: No BM after go lyte. However, KUB did show improvement in constipation, no signs of obstruction. Pt reports some abdominal pain. She did have straight cath >1000cc. No SI/HI. Delusions contained to neighbors, otherwise stable on the unit. Review of Systems Review of Systems Constitutional : No Weight loss, No Fever, No Chills ENT/Mouth : No sore throat, No Rhinorrhea Eyes: No Swelling, No Redness Cardiovascular : No Chest Pain, No SOB, No Edema Respiratory : No Cough, No Sputum, No Wheezing Gastrointestinal : see HPI Genitourinary : NO Dysuria, No Urinary Frequency, No Hematuria, No Urgency Musculoskeletal : No joint pain, No Myalgias, No Joint Swelling Skin : No Skin Lesions, No rash Neuro : No Weakness, No Numbness, No Dizziness, No Headache Psych : + Anxiety/Panic, No Depression Heme/Lymph: No Bruising, No Lymphadenopathy Endocrine : No Polyuria, No Polydipsia All other systems reviewed and are negative. Constitutional: Reports as per HPI Eyes: Reports as per HPI Reports as per HPI Cardiovascular: Reports as per HPI Respiratory: Reports as per HPI Gastrointestinal: Reports as per HPI Musculoskeletal: Reports as per HPI Skin/Breast: Reports as per HPI Reports as per HPI Psychiatric: Reports as per HPI Endocrine: Reports as per HPI Hematologic/Lymphatic: Reports as per HPI Allergic/Immunologic: Reports as per HPI Mental Status Exam Mental Status Exam Patient Appearance: Well Grooomed and Appropriate Patient Orientation: Person, Place and Situation Level of Consciousness: Awake and Appropriate Patient Behavior: Guarded and Passive Mood Description: Calm Affect Description: Constricted Patient Cognition Impaired: Yes Ability to Follow Directions: Good Speech Pattern: Clear Diagnostics Vital Signs (24Hr): Vital Signs - 24 hr 12/31/22 19:30 01/01/23 07:25 Temperature 96.8 F 97.6 F Pulse Rate 85 71 Respiratory Rate 16 16 Blood Pressure 112/56 L 129/66 Pulse Oximetry 96 Oxygen Delivery Method Room Air BMI result Body Mass Index 21.8 Labs 01/01/23 12:52 01/01/23 12:53 Labs: Laboratory Results - last 48 hr 01/01/23 01/01/23 01/01/23 12:30 12:52 12:53 WBC 6.5 RBC 3.73 L Hgb 11.8 L Hct 35.3 L MCV 94.6 MCH 31.6 MCHC 33.4 RDW 11.9 Plt Count 241 MPV 9.1 L Immature Gran % (Auto) 0.3 Neut % (Auto) 62.6 Lymph % (Auto) 28.3 [place] % (Auto) 7.1 Eos % (Auto) 1.4 Baso % (Auto) 0.3 Lymph # (Auto) 1.8 [place] # (Auto) 0.5 Eos # (Auto) 0.1 Baso # (Auto) 0.0 Abs Immat Gran (auto) 0.02 Absolute Neuts (auto) 4.1 Absolute Nucleated RBC 0.000 Nucleated RBC % (auto) 0.0 ESR 5 Sodium 141 Potassium 3.9 Chloride 104 Carbon Dioxide 31 H Anion Gap 10 L BUN 7 L Creatinine 0.69 Estim Creat Clear Calc 87.9 Estimated GFR > 60 Random Glucose 135 H Calcium 8.6 C-Reactive Protein < 0.10 Urine Color Yellow Urine Appearance Cloudy Urine pH >= 9.0 Ur Specific [place] 1.015 Urine Protein Negative Urine Glucose (UA) Negative Urine Ketones Negative Urine Blood Negative Urine Nitrite Negative Ur Leukocyte Esterase Negative Imaging Radiology Impressions: ITS Impressions Abdomen/Pelvis CT 12/29/22 20:50 IMPRESSION: 1. Technically suboptimal study given the absence of oral and intravenous contrast and lack of body fat. 2. On this limited images, there is a suspicious soft tissue mass identified within the left mid abdomen laterally and possible soft tissue mass versus nonopacified bowel within the central upper abdomen. Fluid containing structure in the region of the urinary bladder likely represent physiologically distended bladder and less likely to be midline cystic mass with collapsed bladder. A follow-up repeat CT scan of the abdomen and pelvis following administration of adequate amount of oral contrast (to opacify the entire small and large bowel with appropriate waiting time), and intravenous contrast is recommended including possible delayed images to opacify the urinary bladder for further clarification. Fleischner guidelines were followed. Abdomen/Pelvis CT 12/30/22 16:03 IMPRESSION: The soft tissue mass left mid abdomen is not seen as previously described and likely represented unopacified bowel on prior exam. There is a residual area of soft tissue left mid abdominal associated with bowel loops also possibly unopacified bowel versus bowel thickening. Consider repeat examination in 1-3 months with oral contrast. There is retained stool throughout the colon. There is partial twisting of the central mesentery without bowel dilatation of uncertain significance. The appendix is not seen. Moderate hiatal hernia. Common bile duct and intrahepatic biliary air is noted. Fleischner guidelines were followed. KUB X-Ray 12/31/22 15:00 IMPRESSION: Interval improvement. The amount of fecal material in the colon has decreased compared to 12/30/2022. There is no evidence of bowel obstruction. KUB X-Ray 01/01/23 11:46 IMPRESSION: 1. Mild constipation. No acute process seen. 2. IUD in the pelvis. . Medications Medications Current Medications Acetaminophen (Acetaminophen 325 Mg Tablet) 650 mg PO Q6H PRN PRN Reason: Headache/Pain Mild Scale (1-3) Last Admin: 01/01/23 14:47 Dose: 650 mg Al Hydroxide/Mg Hydroxide (Magnesium Hydrox/Alum Hydrox 30 Ml Oral.Susp) 30 ml PO Q6H PRN PRN Reason: Heartburn/Nausea Last Admin: 12/29/22 19:51 Dose: 30 ml Albuterol Sulfate (Albuterol Sulfate 90 Mcg 8 Gm Inhaler) 1 puff INHALE RQ4H PRN PRN Reason: Wheezing Baclofen (Baclofen 10 Mg Tablet) 10 mg PO BID PRN PRN Reason: muscle spasm Last Admin: 01/01/23 11:30 Dose: 10 mg Benzocaine (Benzocaine 20 % Oral Gel 9 Gm Tube) 1 appl MUCOUS MEM QID PRN; Protocol PRN Reason: Pain, Moderate(Pain Scale 4-6) Last Admin: 12/27/22 08:31 Dose: 1 appl Bisacodyl (Bisacodyl 5 Mg Tablet.) 10 mg PO DAILY [facility] Last Admin: 01/01/23 09:16 Dose: Not Given Clonazepam (Clonazepam 1 Mg Tablet) 1 mg PO BID PRN PRN Reason: anxiety Last Admin: 12/31/22 21:08 Dose: 1 mg Clonazepam (Clonazepam 0.5 Mg Tablet) 0.5 mg PO DAILY PRN PRN Reason: Anxiety Last Admin: 01/01/23 08:36 Dose: 0.5 mg Diclofenac Sodium (Diclofenac Sodium Delayed Rel 75 Mg Tablet.) 75 mg PO BID [facility] Last Admin: 12/25/22 08:06 Dose: 75 mg Docusate Sodium (Docusate Sodium 100 Mg Capsule) 100 mg PO BID [facility] Last Admin: 01/01/23 09:16 Dose: Not Given Gabapentin (Gabapentin 600 Mg Tablet) 600 mg PO TID [facility] Last Admin: 01/01/23 14:43 Dose: 600 mg Ibuprofen (Ibuprofen 800 Mg Tablet) 800 mg PO TID PRN PRN Reason: Pain, Moderate(Pain Scale 4-6) Last Admin: 12/29/22 08:25 Dose: 800 mg Magnesium Hydroxide (Milk Of Magnesia 30 Ml Oral.Susp) 30 ml PO DAILY PRN PRN Reason: Constipation Last Admin: 12/30/22 09:16 Dose: 30 ml Methylphenidate HCl (Methylphenidate Hcl 10 Mg Tablet) 20 mg PO BID@0830,1330 [facility] Last Admin: 01/01/23 11:30 Dose: 20 mg Naltrexone HCl (Naltrexone Hcl 50 Mg Tablet) 50 mg PO DAILY [facility] Last Admin: 01/01/23 11:31 Dose: 50 mg Nicotine (Nicotine 14 Mg Patch.Td24) 14 mg TRANSDERMA DAILY PRN PRN Reason: nicotine cravings Last Admin: 01/01/23 13:18 Dose: 14 mg Nicotine Polacrilex (Nicotine Polacrilex Lozenge 4 Mg Lozenge) 4 mg BUCCAL Q2H PRN PRN Reason: Nicotine Cravings Last Admin: 01/01/23 14:07 Dose: 4 mg Pulmicort 90 Mcg 2 each INHALE RBID [facility] Last Admin: 01/01/23 09:17 Dose: Not Given Omeprazole (Omeprazole 20 Mg Capsule.Dr) 20 mg PO DAILY@0630 [facility] Last Admin: 01/01/23 06:45 Dose: Not Given Ondansetron HCl (Ondansetron Odt 8 Mg Tab.Rapdis) 8 mg TRANSLINGU Q8H PRN PRN Reason: Nausea Last Admin: 01/01/23 14:43 Dose: 8 mg Polyethylene Glycol (Polyethylene Glycol 3350 17 Gm Powd.Pack) 17 gm PO BID [facility] Last Admin: 01/01/23 09:17 Dose: Not Given Pseudoephedrine HCl (Pseudoephedrine Hcl 30 Mg Tablet) 30 mg PO Q4H PRN PRN Reason: Nasal Congestion Last Admin: 12/31/22 09:32 Dose: 30 mg Risperidone (Risperidone 2 Mg Tablet) 2 mg PO BEDTIME JULIA Simethicone (Simethicone 80 Mg Tab.Chew) 80 mg PO QIDWMHS JULIA Last Admin: 01/01/23 13:19 Dose: 80 mg Sodium Chloride (Sodium Chloride 0.65 % Nasal 44 Ml Sprbtl) 1 spray NOSTRIL-B Q1H PRN PRN Reason: Congestion Last Admin: 12/31/22 09:30 Dose: 1 spray Trazodone HCl (Trazodone Hcl 50 Mg Tablet) 50 mg PO BEDTIME MRX1 PRN PRN Reason: Insomnia Last Admin: 12/31/22 23:59 Dose: 50 mg Allergies Allergies Allergy/AdvReac Type Severity Reaction Status Date / Time clindamycin Allergy Intermediate Rash Verified 12/21/22 17:11 Assessment & Plan Assessment & Plan (1) Psychosis: Status: Acute Code(s): F29 - Unspecified psychosis not due to a substance or known physiological condition Plan Pt with paranoid delusions towards neighbors. One previous episode of psychosis back in 2020, apparently otherwise functioning (to some degree as she is on SSI due to mental illness). Hx of substance use- alcohol, unclear other substances. Utox was negative. PLAN 1. increase risperidone to 1mg po daily and 2mg po qhs. continue cogentin 1mg po BID. 2. aftercare planning 12/24: Move Ritalin to AM and 2PM. Add an extra dose of Klonopin 0.5 mg PRN in the afternoon. 12/25: Hold Voltaren. Start Ibuprofen 800 mg TID PRN. Start Naltrexone per addiction medicine. 12/26: Patient reports feeling pretty good today. She reports feeling hopeful after speaking to addiction medicine yesterday. Pt reports sleeping well; pt stated, I haven't slept this well in months . Continues to present with paranoia regarding neighbors. Pt reports she has been in contact with [facility] and is looking for a new place to live so I don't have to be near those neighbors anymore . She is interested in attending IOP at the [facility]. denies SI/HI/VH/AH. Risperidal increased to 2mg PO BID. 12/27: Patient reports feeling good today. denies any side effects from increase in risperidal. Patient reports finding the groups to be helpful. States she is looking forward to discharge and has made hotel arraignments until my new apartment is ready ;looking forward to possibly going to the [facility]. Patient denies SI/HI/VH/AH. She is hoping to be discharged on Monday. 12/28: Patient reports feeling stressed today. Pt easily agitated;irritable. Pt reporting she wants to stay until Monday because I have no where to go ; she reports she does not want to return to her apartment which holds her belongings or go to a hotel until she finds a new apartment. Pt stated, no one here is helping me. 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 I want my klonopin 0.5 back . Patient then started yelling at T/W d/t writing down notes from our conversation and not having constant eye contact. Pt stated, why are you not looking at me?! ; T/W explained that her concerns were being written down to be addressed. When T/W put pen down and looked at patient to provide full attention, pt stated, you're not listening to me! . T/W stated to patient that staff are trying to meet her needs but it appears that nothing is appeasing her. Pt stated, you're right! nothing is appeasing me! . pt then walked out of office. Start: Klonopin 0.5mg PO daily PRN Pt with PI mood instability irritability DC clonidine and hydroxyzine d/t patient reporting it is not helping with my anxiety . 12/29 Add Sudafed PRN and change Risperdal all at hs. 12/30- GI consult ordered- recommended repeat, abdominal CT with contrast (ordered). pt constipated, ordered miralax. simethicone bloating. 12/31- KUB ordered. GI Dr. Nguyễn and Hospitalist Sally Goddard following- until constipation and bladder distension not improved she may need medical admission. cogentin discontinued due to anticholigernic properties worsening constipation and urinary retention (no eps) 01/01- will decrease risperidone to 2mg po qhs- avoid exacerbation of anticholigergic side effects although less with this antipsychotic than others.psychiatrically stable- No SI/HI, although paranoid delusion towards neighbors persist. Reason for continued inpatient stay Substantial Risk for: stable for discharge Time Spent With Patient Time: Total time managing care of this patient today ____ minutes.
--- NOTE | 2023-01-01 17:33 | P.PNGI_ITS ---
Subjective Subjective Date of Service: 01/01/23 Interval History: called by hospitalist team as patient had severe diffuse abdominal pain and distention I advised a KUB and straight cath patient had straight cath with 1 L in bladder , KUB actually showed less stool burden but still significant kaushik right side appetite is fair Critical Care Time (minutes): 0 Physical Exam 2 Vital Signs: Vital Signs: Last Vital Signs Temp 97.6 F 01/01/23 07:25 Pulse 71 01/01/23 07:25 Resp 16 01/01/23 07:25 BP 129/66 01/01/23 07:25 Pulse Ox 96 01/01/23 07:25 O2 Del Method Room Air 01/01/23 07:25 BMI result Body Mass Index 21.8 EXAM: (before straight cath) GENERAL: The patient is well developed and nontoxic. VITAL SIGNS:see workflow HEENT: Nonicteric sclerae, PERRLA, EOMI. Oropharynx clear. Moist mucous membranes. Conjunctivae appear well perfused. No thyroid mass. CHEST: Chest wall is nontender. HEART: Regular rate and rhythm without murmurs. LUNGS: Clear to auscultation bilaterally. ABDOMEN: tense,distended kaushik lower abdomen, positive bowel sounds, diffusely tender, no organomegaly.no flank tenderness SKIN: No rash, no excessive bruising, petechiae, or purpura. NEUROLOGIC: Cranial nerves II-XII intact without motor/sensory deficit. Psych: Appearance: grossly normal Objective Data Labs 01/01/23 12:52 01/01/23 12:53 Labs: Laboratory Results - last 24 hr 01/01/23 01/01/23 01/01/23 12:30 12:52 12:53 WBC 6.5 RBC 3.73 L Hgb 11.8 L Hct 35.3 L MCV 94.6 MCH 31.6 MCHC 33.4 RDW 11.9 Plt Count 241 MPV 9.1 L Immature Gran % (Auto) 0.3 Neut % (Auto) 62.6 Lymph % (Auto) 28.3 [place] % (Auto) 7.1 Eos % (Auto) 1.4 Baso % (Auto) 0.3 Lymph # (Auto) 1.8 [place] # (Auto) 0.5 Eos # (Auto) 0.1 Baso # (Auto) 0.0 Abs Immat Gran (auto) 0.02 Absolute Neuts (auto) 4.1 Absolute Nucleated RBC 0.000 Nucleated RBC % (auto) 0.0 ESR 5 Sodium 141 Potassium 3.9 Chloride 104 Carbon Dioxide 31 H Anion Gap 10 L BUN 7 L Creatinine 0.69 Estim Creat Clear Calc 87.9 Estimated GFR > 60 Random Glucose 135 H Calcium 8.6 C-Reactive Protein < 0.10 Urine Color Yellow Urine Appearance Cloudy Urine pH >= 9.0 Ur Specific [place] 1.015 Urine Protein Negative Urine Glucose (UA) Negative Urine Ketones Negative Urine Blood Negative Urine Nitrite Negative Ur Leukocyte Esterase Negative Procedures Date of Service Date of Service: 01/01/23 Progress Note: A&P Assessment and plan (1) Urine retention: Status: Acute (2) Constipation by delayed colonic transit: Status: Acute Plan 1/ Urine retention and constipation liekly 2/2 medication side effects Plan; 1/ cont with medication titration, try to use meds with less anti cholinergic effects--if ongoing sx will need further w/u possibly for neurological and mechanical causes, would also check TSH Time Spent With Patient Time: Total time managing care of this patient today ____ minutes. Quality Stroke Does the patient have a stroke diagnosis?: No VTE Prior VTE?: No VTE Risk Level:: Medical - low VTE Device Contraindication: Treatment Not Indicated VTE Drug Contraindication: Treatment Not Indicated
[2023-01-01] MEDS: clonazePAM 1 MG TABLET PO (17:54)
[2023-01-01] MEDS: Ibuprofen 800 MG TABLET PO (18:02)
[2023-01-01 19:00] LABS: Lipase 13 U/L (8-78)
[2023-01-01] MEDS: Ketorolac Tromethamine 30 MG/ML VIAL IM (19:01)
[2023-01-01] MEDS: iohexoL 350 MG/ML 100 ML INFUS..BTL IV (19:23)
[2023-01-01 20:05] VITALS: BP 135/76; PULSE 69; TEMP 36.8; O2SAT 99
[2023-01-01] MEDS: ondansetron HCL 4 MG/2 ML VIAL IVPUSH (21:31)
[2023-01-01] MEDS: LORazepam 2 MG/ML VIAL 1 MG IVPUSH (21:34)
[2023-01-01] MEDS: traMADoL HCL 50 MG TABLET PO (21:40)
[2023-01-01] MEDS: Docusate Sodium 100 MG CAPSULE PO (22:26)
[2023-01-01] MEDS: risperiDONE 2 MG TABLET PO (22:28)
[2023-01-01] MEDS: HYDROmorphone HCl 1 MG/ML SYRINGE IVPUSH (23:05)
--- NOTE | 2023-01-02 00:16 | PC.NURSE ---
Pt visible in the milieu talking on phone. she is very anxious and states she is going to from intestinal blockage. she states she has written letters to her children should she over night. contacted dr banks and case reviewed. emma ct scan of abdomen shows fecal impaction which is concerning. discussed pts anxiety/pain 11/15 and nausea. plan 1. ativan 1 mg ivp 2. zofran 4 mg ivp 3. tramadol 50 mg po x1 4. clear liquid diet 5. soap carol enema carole. i also spoke to dr hill who has been informed of intra abdominal issues and wishes the hospitalist service to handle subsequent GI problems.
--- NOTE | 2023-01-02 06:16 | PM.EVENT ---
Event Note Date of Service: 01/02/23 Event Note: Patient continued to have significant abdominal pain a on the evening of 1126. Evaluated by me, ordered a CT scan with contrast which showed large stool burden throughout the colon, t case was discussed with General surgery Patient finished her goal likely with minimal bowel movement, this time will start her on enema, continue oral laxatives and monitor for BMs Will avoid narcotic medications as much as we can Time Spent With Patient Time: Total time managing care of this patient today ____ minutes.
[2023-01-02] MEDS: Baclofen 10 MG TABLET PO (06:19)
[2023-01-02] MEDS: clonazePAM 1 MG TABLET PO (06:19)
[2023-01-02] MEDS: Ibuprofen 800 MG TABLET PO (06:20)
[2023-01-02] MEDS: Omeprazole 20 MG CAPSULE.DR PO (06:22)
[2023-01-02] MEDS: Mineral OiL enema 133 ML ENEMA PR (06:23)
[2023-01-02] MEDS: Nicotine Polacrilex Lozenge 4 MG LOZENGE BUCCAL ×3 (06:26→12:46)
--- NOTE | 2023-01-02 07:56 | PM.UROCN ---
History of Present Illness Consult details Consult date: 01/02/23 Narrative: CC: Urinary retention 47-year-old female On M3 psychiatry for increased anxiety, depression and paranoia. Associated intermittent severe abdominal pain with CT scan showing high-volume stool. At that time required intermittent self catheterization had 1.1 L within bladder Appears to have some improvement after stool passage Discussed importance of maintaining adequate stool function Review of Systems Constitutional: Constitutional: Denies chills and Denies fever(s) Cardiovascular: Cardiovascular: Reports no additional cardiovascular complaints and Denies syncope Respiratory: Respiratory: Denies cough Gastrointestinal: Gastrointestinal: Denies abdominal pain and Denies heartburn Genitourinary: Genitourinary: Reports as per HPI and Denies change in libido Neurologic: Denies syncope Psychiatric: Psychiatric: Denies change in libido Endocrine: Endocrine: Denies change in libido PMF Past Medical History Medical History Shingles Depression Generalized anxiety disorder Schizoaffective disorder Biliary obstruction Muscle spasms of both lower extremities Social History Social History Household Members: Children Housing: Apartment Housing Other:: but we were in the process of moving to my aunts house Do you presently have visiting nurse or other home services: No Patient Tobacco Use Status: Current everyday Tobacco user Tobacco use type: Cigarette Cigarette Packs Per Day: 1 Cigarettes Per Day: 8 Years Smoked: 15 e-Cigarette/Vaping Use: Never Used Second Hand Smoke Exposure: No Substance Use Type: Crack/Cocaine, Marijuana and Caffiene service: No Sexual orientation: Straight/Heterosexual Meds Allergies Allergy/AdvReac Type Severity Reaction Status Date / Time clindamycin Allergy Intermediate Rash Verified 12/21/22 17:11 Active Medications: Current Medications Acetaminophen (Acetaminophen 325 Mg Tablet) 650 mg PO Q6H PRN PRN Reason: Headache/Pain Mild Scale (1-3) Last Admin: 01/01/23 14:47 Dose: 650 mg Al Hydroxide/Mg Hydroxide (Magnesium Hydrox/Alum Hydrox 30 Ml Oral.Susp) 30 ml PO Q6H PRN PRN Reason: Heartburn/Nausea Last Admin: 12/29/22 19:51 Dose: 30 ml Albuterol Sulfate (Albuterol Sulfate 90 Mcg 8 Gm Inhaler) 1 puff INHALE RQ4H PRN PRN Reason: Wheezing Baclofen (Baclofen 10 Mg Tablet) 10 mg PO BID PRN PRN Reason: muscle spasm Last Admin: 01/02/23 06:19 Dose: 10 mg Benzocaine (Benzocaine 20 % Oral Gel 9 Gm Tube) 1 appl MUCOUS MEM QID PRN; Protocol PRN Reason: Pain, Moderate(Pain Scale 4-6) Last Admin: 12/27/22 08:31 Dose: 1 appl Bisacodyl (Bisacodyl 5 Mg Tablet.) 10 mg PO DAILY [facility] Last Admin: 01/01/23 09:16 Dose: Not Given Clonazepam (Clonazepam 1 Mg Tablet) 1 mg PO BID PRN PRN Reason: anxiety Last Admin: 01/02/23 06:19 Dose: 1 mg Clonazepam (Clonazepam 0.5 Mg Tablet) 0.5 mg PO DAILY PRN PRN Reason: Anxiety Last Admin: 01/01/23 08:36 Dose: 0.5 mg Diclofenac Sodium (Diclofenac Sodium Delayed Rel 75 Mg Tablet.) 75 mg PO BID [facility] Last Admin: 12/25/22 08:06 Dose: 75 mg Docusate Sodium (Docusate Sodium 100 Mg Capsule) 100 mg PO BID [facility] Last Admin: 01/01/23 22:26 Dose: 100 mg Gabapentin (Gabapentin 600 Mg Tablet) 600 mg PO TID [facility] Last Admin: 01/01/23 22:25 Dose: 600 mg Ibuprofen (Ibuprofen 800 Mg Tablet) 800 mg PO TID PRN PRN Reason: Pain, Moderate(Pain Scale 4-6) Last Admin: 01/02/23 06:20 Dose: 800 mg Magnesium Hydroxide (Milk Of Magnesia 30 Ml Oral.Susp) 30 ml PO DAILY PRN PRN Reason: Constipation Last Admin: 12/30/22 09:16 Dose: 30 ml Methylphenidate HCl (Methylphenidate Hcl 10 Mg Tablet) 20 mg PO BID@0830,1330 [facility] Last Admin: 01/01/23 16:19 Dose: 20 mg Naltrexone HCl (Naltrexone Hcl 50 Mg Tablet) 50 mg PO DAILY [facility] Last Admin: 01/01/23 11:31 Dose: 50 mg Nicotine (Nicotine 14 Mg Patch.Td24) 14 mg TRANSDERMA DAILY PRN PRN Reason: nicotine cravings Last Admin: 01/01/23 13:18 Dose: 14 mg Nicotine Polacrilex (Nicotine Polacrilex Lozenge 4 Mg Lozenge) 4 mg BUCCAL Q2H PRN PRN Reason: Nicotine Cravings Last Admin: 01/02/23 06:26 Dose: 4 mg Pulmicort 90 Mcg 2 each INHALE RBID [facility] Last Admin: 01/02/23 00:03 Dose: Not Given Omeprazole (Omeprazole 20 Mg Capsule.Dr) 20 mg PO DAILY@0630 [facility] Last Admin: 01/02/23 06:22 Dose: 20 mg Ondansetron HCl (Ondansetron Odt 8 Mg Tab.Rapdis) 8 mg TRANSLINGU Q8H PRN PRN Reason: Nausea Last Admin: 01/01/23 14:43 Dose: 8 mg Ondansetron HCl (Ondansetron Hcl 4 Mg/2 Ml Vial) 4 mg IVPUSH Q8H PRN PRN Reason: Nausea and Vomiting Last Admin: 01/01/23 21:31 Dose: 4 mg Polyethylene Glycol (Polyethylene Glycol 3350 17 Gm Powd.Pack) 17 gm PO BID [facility] Last Admin: 01/02/23 00:03 Dose: Not Given Pseudoephedrine HCl (Pseudoephedrine Hcl 30 Mg Tablet) 30 mg PO Q4H PRN PRN Reason: Nasal Congestion Last Admin: 12/31/22 09:32 Dose: 30 mg Risperidone (Risperidone 2 Mg Tablet) 2 mg PO BEDTIME [facility] Last Admin: 01/01/23 22:28 Dose: 2 mg Simethicone (Simethicone 80 Mg Tab.Chew) 80 mg PO QIDWMHS [facility] Last Admin: 01/01/23 22:29 Dose: 80 mg Sodium Chloride (Sodium Chloride 0.65 % Nasal 44 Ml Sprbtl) 1 spray NOSTRIL-B Q1H PRN PRN Reason: Congestion Last Admin: 12/31/22 09:30 Dose: 1 spray Trazodone HCl (Trazodone Hcl 50 Mg Tablet) 50 mg PO BEDTIME MRX1 PRN PRN Reason: Insomnia Last Admin: 12/31/22 23:59 Dose: 50 mg Home Medications Medication Instructions Recorded Confirmed Last Taken Type clonazepam 1 mg tablet 1 mg PO BID PRN Anxiety 01/02/23 01/02/23 Unknown History gabapentin 600 mg tablet 600 mg PO TID 01/02/23 01/02/23 Unknown History magnesium hydroxide 400 mg/5 mL 30 ml PO DAILY PRN Constipation 01/02/23 01/02/23 Unknown History oral suspension (Milk of Magnesia) methylphenidate HCl 10 mg tablet 20 mg PO BID@0800,1330 01/02/23 01/02/23 Unknown History sodium phosphates 19 gram-7 118 ml [place] DAILY PRN Constipation 01/02/23 01/02/23 Unknown History gram/118 mL enema (Fleet Enema) Physical Exam Vital Signs: Vital Signs: Last Vital Signs Temp 98.2 F 01/01/23 20:05 Pulse 69 01/01/23 20:05 Resp 16 01/01/23 07:25 BP 135/76 01/01/23 20:05 Pulse Ox 99 01/01/23 20:05 O2 Del Method Room Air 01/01/23 20:05 BMI result Body Mass Index 21.8 Const: General: cooperative, healthy appearing, comfortable and no acute distress Orientation/consciousness: patient oriented x3 HEENT: Face and sinus: Yes normal facial exam Mouth: moist mucous membranes Neck: Neck: Yes normal visual inspection, Yes full ROM and Yes trachea midline Chest: Chest palpation & inspection: normal inspection of the chest Resp: Effort & Inspection: normal respiratory effort, able to speak in complete sentences and no respiratory distress GI: Inspection: Yes normal to inspection Back/Spine/Pelvis: Cervical Spine: normal cervical lordosis Thoracic/Lumbar Spine: thoracic and lumbar spine normal to inspection Skin: General skin exam: no rashes or lesions noted Neuro: General: patient oriented x3, gait normal, tone normal and moves all extremities Extrem: General: Yes normal to inspection and Yes capillary refill normal Results Labs 01/01/23 12:52 01/01/23 12:53 Labs: Abnormal lab results 01/01/23 01/01/23 Range/Units 12:52 12:53 RBC 3.73 L (4.20-5.50) X10*6/uL Hgb 11.8 L (12.0-16.0) g/dl Hct 35.3 L (37.0-47.0) % MPV 9.1 L (9.4-12.3) fL Carbon Dioxide 31 H (22-29) mmol/L Anion Gap 10 L (12-20) BUN 7 L (9-16) mg/dL Random Glucose 135 H (60-115) mg/dL Short CBC 01/01/23 Range/Units 12:52 WBC 6.5 (4.8-10.8) X10*3/uL Hgb 11.8 L (12.0-16.0) g/dl Hct 35.3 L (37.0-47.0) % Plt Count 241 (160-400) X10*3/uL BMP 01/01/23 12:53 Sodium 141 Potassium 3.9 Chloride 104 Carbon Dioxide 31 H BUN 7 L Creatinine 0.69 Calcium 8.6 Urine 01/01/23 Range/Units 12:30 Urine Color Yellow Urine Appearance Cloudy Urine pH >= 9.0 (5.0-9.0) Ur Specific [place] 1.015 (1.005-1.025) Urine Protein Negative (Neg-Trace) mg/dL Urine Glucose (UA) Negative (Negative) mg/dL All other labs normal. Assessment and Plan (1) Urine retention: Status: Acute Plan Encourage stool program Procedures Date of Service Date of Service: 02/09/23
[2023-01-02 08:38] VITALS: BP 119/58; PULSE 61; RESP 16; TEMP 36.2; O2SAT 99
[2023-01-02] MEDS: Naltrexone HCl 50 MG TABLET PO (08:40)
[2023-01-02] MEDS: Methylphenidate HCl 10 MG TABLET 20 MG PO ×2 (08:40→14:29)
[2023-01-02] MEDS: bisacodyL 5 MG TABLET.DR 10 MG PO (08:40)
[2023-01-02] MEDS: Simethicone 80 MG TAB.CHEW PO ×2 (08:40→12:46)
[2023-01-02] MEDS: Gabapentin 600 MG TABLET PO ×2 (08:40→14:28)
[2023-01-02] MEDS: Docusate Sodium 100 MG CAPSULE PO (08:41)
[2023-01-02] MEDS: clonazePAM 0.5 MG TABLET PO (09:55)
[2023-01-02 10:36] LABS: Free T4 (Free Thyroxine) 0.87 ng/dL (0.71-1.85); Thyroid Stimulating Hormone 3.32 uIU/mL (0.32-4.0)
[2023-01-02] MEDS: Morphine Sulfate 4 MG/ML CARTRIDGE 2 MG IM (12:26)
[2023-01-02] MEDS: polyethylene glycoL 3350 17 GM POWD.PACK PO (12:40)
--- NOTE | 2023-01-02 13:00 | P.CONGS_ITS ---
History of Present Illness Consult details Consult date: 01/02/23 Narrative: 47-year-old female referred for severe constipation. She had been admitted to the psych unit since 12/22/2022 for paranoia and suicidal ideations. She had volunteered to be admitted because of these. She says that she has a lot of stressors at home. She is feeling much better now in this regard. She had complained of abdominal pain [address] scan showing very high stool volume in the entire colon consistent with constipation. She says she has history of IBS type issues for so many years. She had a colonoscopy about 10 years ago which was otherwise unremarkable She also had abdominal surgery as an for some type of ?obstruction? of her intestines. She says she is passing flatus. She has crampy abdominal pain. She had severe abdominal pain last night but was also noted to have urinary retention with a very full bladder. She been undergoing intermittent catheterization duration since that time. She had GoLYTELY last night and had enemas as well. She had a small bowel movement this morning. Review of Systems 2 Constitutional: Constitutional: Denies chills and Denies fever(s) Cardiovascular: Cardiovascular: Denies chest pain, Denies dyspnea and Denies dyspnea on exertion Respiratory: Respiratory: Denies cough, Denies dyspnea and Denies dyspnea on exertion Gastrointestinal: Gastrointestinal: Denies hematochezia, Denies change in bowel habits and Reports constipation Genitourinary: Genitourinary: Denies hematuria Musculoskeletal: Musculoskeletal: Denies back pain and Denies limited range of motion Neurologic: Denies focal weakness and Denies convulsions Psychiatric: Psychiatric: Reports anxiety, Denies depression, Denies mood swings and Reports paranoia [facility] Past Medical History Medical History Shingles Depression Generalized anxiety disorder Schizoaffective disorder Biliary obstruction Muscle spasms of both lower extremities Social History Social History Household Members: Children Housing: Apartment Housing Other:: but we were in the process of moving to my aunts house Do you presently have visiting nurse or other home services: No Patient Tobacco Use Status: Current everyday Tobacco user Tobacco use type: Cigarette Cigarette Packs Per Day: 1 Cigarettes Per Day: 8 Years Smoked: 15 e-Cigarette/Vaping Use: Never Used Second Hand Smoke Exposure: No Substance Use Type: Crack/Cocaine, Marijuana and Caffiene service: No Sexual orientation: Straight/Heterosexual Meds Allergies Allergy/AdvReac Type Severity Reaction Status Date / Time clindamycin Allergy Intermediate Rash Verified 12/21/22 17:11 Active Medications: Current Medications Acetaminophen (Acetaminophen 325 Mg Tablet) 650 mg PO Q6H PRN PRN Reason: Headache/Pain Mild Scale (1-3) Last Admin: 01/01/23 14:47 Dose: 650 mg Al Hydroxide/Mg Hydroxide (Magnesium Hydrox/Alum Hydrox 30 Ml Oral.Susp) 30 ml PO Q6H PRN PRN Reason: Heartburn/Nausea Last Admin: 12/29/22 19:51 Dose: 30 ml Albuterol Sulfate (Albuterol Sulfate 90 Mcg 8 Gm Inhaler) 1 puff INHALE RQ4H PRN PRN Reason: Wheezing Baclofen (Baclofen 10 Mg Tablet) 10 mg PO BID PRN PRN Reason: muscle spasm Last Admin: 01/02/23 06:19 Dose: 10 mg Benzocaine (Benzocaine 20 % Oral Gel 9 Gm Tube) 1 appl MUCOUS MEM QID PRN; Protocol PRN Reason: Pain, Moderate(Pain Scale 4-6) Last Admin: 12/27/22 08:31 Dose: 1 appl Bisacodyl (Bisacodyl 5 Mg Tablet.) 10 mg PO DAILY [facility] Last Admin: 01/02/23 08:40 Dose: 10 mg Clonazepam (Clonazepam 1 Mg Tablet) 1 mg PO BID PRN PRN Reason: anxiety Last Admin: 01/02/23 06:19 Dose: 1 mg Clonazepam (Clonazepam 0.5 Mg Tablet) 0.5 mg PO DAILY PRN PRN Reason: Anxiety Last Admin: 01/02/23 09:55 Dose: 0.5 mg Diclofenac Sodium (Diclofenac Sodium Delayed Rel 75 Mg Tablet.) 75 mg PO BID [facility] Last Admin: 12/25/22 08:06 Dose: 75 mg Docusate Sodium (Docusate Sodium 100 Mg Capsule) 100 mg PO BID [facility] Last Admin: 01/02/23 08:41 Dose: 100 mg Gabapentin (Gabapentin 600 Mg Tablet) 600 mg PO TID [facility] Last Admin: 01/02/23 08:40 Dose: 600 mg Ibuprofen (Ibuprofen 800 Mg Tablet) 800 mg PO TID PRN PRN Reason: Pain, Moderate(Pain Scale 4-6) Last Admin: 01/02/23 06:20 Dose: 800 mg Magnesium Hydroxide (Milk Of Magnesia 30 Ml Oral.Susp) 30 ml PO DAILY PRN PRN Reason: Constipation Last Admin: 12/30/22 09:16 Dose: 30 ml Methylphenidate HCl (Methylphenidate Hcl 10 Mg Tablet) 20 mg PO BID@0830,1330 [facility] Last Admin: 01/02/23 08:40 Dose: 20 mg Naltrexone HCl (Naltrexone Hcl 50 Mg Tablet) 50 mg PO DAILY [facility] Last Admin: 01/02/23 08:40 Dose: 50 mg Nicotine (Nicotine 14 Mg Patch.Td24) 14 mg TRANSDERMA DAILY PRN PRN Reason: nicotine cravings Last Admin: 01/01/23 13:18 Dose: 14 mg Nicotine Polacrilex (Nicotine Polacrilex Lozenge 4 Mg Lozenge) 4 mg BUCCAL Q2H PRN PRN Reason: Nicotine Cravings Last Admin: 01/02/23 12:46 Dose: 4 mg Pulmicort 90 Mcg 2 each INHALE RBID [facility] Last Admin: 01/02/23 08:43 Dose: Not Given Omeprazole (Omeprazole 20 Mg Capsule.Dr) 20 mg PO DAILY@0630 [facility] Last Admin: 01/02/23 06:22 Dose: 20 mg Ondansetron HCl (Ondansetron Odt 8 Mg Tab.Rapdis) 8 mg TRANSLINGU Q8H PRN PRN Reason: Nausea Last Admin: 01/01/23 14:43 Dose: 8 mg Ondansetron HCl (Ondansetron Hcl 4 Mg/2 Ml Vial) 4 mg IVPUSH Q8H PRN PRN Reason: Nausea and Vomiting Last Admin: 01/01/23 21:31 Dose: 4 mg Polyethylene Glycol (Polyethylene Glycol 3350 17 Gm Powd.Pack) 17 gm PO BID [facility] Last Admin: 01/02/23 12:40 Dose: 17 gm Pseudoephedrine HCl (Pseudoephedrine Hcl 30 Mg Tablet) 30 mg PO Q4H PRN PRN Reason: Nasal Congestion Last Admin: 12/31/22 09:32 Dose: 30 mg Risperidone (Risperidone 2 Mg Tablet) 2 mg PO BEDTIME [facility] Last Admin: 01/01/23 22:28 Dose: 2 mg Simethicone (Simethicone 80 Mg Tab.Chew) 80 mg PO QIDWMHS [facility] Last Admin: 01/02/23 12:46 Dose: 80 mg Sodium Chloride (Sodium Chloride 0.65 % Nasal 44 Ml Sprbtl) 1 spray NOSTRIL-B Q1H PRN PRN Reason: Congestion Last Admin: 12/31/22 09:30 Dose: 1 spray Trazodone HCl (Trazodone Hcl 50 Mg Tablet) 50 mg PO BEDTIME MRX1 PRN PRN Reason: Insomnia Last Admin: 12/31/22 23:59 Dose: 50 mg Home Medications Medication Instructions Recorded Confirmed Last Taken Type clonazepam 1 mg tablet 1 mg PO BID PRN Anxiety 01/02/23 01/02/23 Unknown History gabapentin 600 mg tablet 600 mg PO TID 01/02/23 01/02/23 Unknown History magnesium hydroxide 400 mg/5 mL 30 ml PO DAILY PRN Constipation 01/02/23 01/02/23 Unknown History oral suspension (Milk of Magnesia) methylphenidate HCl 10 mg tablet 20 mg PO BID@0800,1330 01/02/23 01/02/23 Unknown History sodium phosphates 19 gram-7 118 ml [place] DAILY PRN Constipation 01/02/23 01/02/23 Unknown History gram/118 mL enema (Fleet Enema) Physical Exam 2 Vital Signs: Vital Signs: Last Vital Signs Temp 97.1 F 01/02/23 08:38 Pulse 61 01/02/23 08:38 Resp 16 01/02/23 08:38 BP 119/58 L 01/02/23 08:38 Pulse Ox 99 01/02/23 08:38 O2 Del Method Room Air 01/02/23 08:38 BMI result Body Mass Index 21.8 Results Labs 01/01/23 12:52 01/01/23 12:53 Labs: Abnormal lab results 01/01/23 01/01/23 Range/Units 12:52 12:53 RBC 3.73 L (4.20-5.50) X10*6/uL Hgb 11.8 L (12.0-16.0) g/dl Hct 35.3 L (37.0-47.0) % MPV 9.1 L (9.4-12.3) fL Carbon Dioxide 31 H (22-29) mmol/L Anion Gap 10 L (12-20) BUN 7 L (9-16) mg/dL Random Glucose 135 H (60-115) mg/dL Short CBC 01/01/23 Range/Units 12:52 WBC 6.5 (4.8-10.8) X10*3/uL Hgb 11.8 L (12.0-16.0) g/dl Hct 35.3 L (37.0-47.0) % Plt Count 241 (160-400) X10*3/uL BMP 01/01/23 12:53 Sodium 141 Potassium 3.9 Chloride 104 Carbon Dioxide 31 H BUN 7 L Creatinine 0.69 Calcium 8.6 Urine 01/01/23 Range/Units 12:30 Urine Color Yellow Urine Appearance Cloudy Urine pH >= 9.0 (5.0-9.0) Ur Specific [place] 1.015 (1.005-1.025) Urine Protein Negative (Neg-Trace) mg/dL Urine Glucose (UA) Negative (Negative) mg/dL All other labs normal. Laboratory Results WBC 6.5 X10*3/uL (4.8-10.8) 01/01/23 12:52 RBC 3.73 X10*6/uL (4.20-5.50) L 01/01/23 12:52 Hgb 11.8 g/dl (12.0-16.0) L 01/01/23 12:52 Hct 35.3 % (37.0-47.0) L 01/01/23 12:52 MCV 94.6 fL (80.0-98.0) 01/01/23 12:52 MCH 31.6 pg (27.0-33.0) 01/01/23 12:52 MCHC 33.4 g/dl (31.0-35.0) 01/01/23 12:52 RDW 11.9 % (11.0-16.0) 01/01/23 12:52 Plt Count 241 X10*3/uL (160-400) 01/01/23 12:52 MPV 9.1 fL (9.4-12.3) L 01/01/23 12:52 Immature Gran % (Auto) 0.3 % (0.0-0.4) 01/01/23 12:52 Neut % (Auto) 62.6 % (45-73) 01/01/23 12:52 Lymph % (Auto) 28.3 % (20-40) 01/01/23 12:52 [place] % (Auto) 7.1 % (2-11) 01/01/23 12:52 Eos % (Auto) 1.4 % (0-4) 01/01/23 12:52 Baso % (Auto) 0.3 % (0-2) 01/01/23 12:52 Lymph # (Auto) 1.8 X10*3/uL (1.2-4.9) 01/01/23 12:52 [place] # (Auto) 0.5 X10*3/uL (0.1-1.2) 01/01/23 12:52 Eos # (Auto) 0.1 X10*3/uL (0.0-0.4) 01/01/23 12:52 Baso # (Auto) 0.0 X10*3/uL (0.0-0.2) 01/01/23 12:52 Abs Immat Gran (auto) 0.02 X10*3/uL (0.00-0.03) 01/01/23 12:52 Absolute Neuts (auto) 4.1 x10*3/uL (2.0-8.3) 01/01/23 12:52 Absolute Nucleated RBC 0.000 X10*3/uL (0.0-0.012) 01/01/23 12:52 Nucleated RBC % (auto) 0.0 /100WBC (0.0-0.2) 01/01/23 12:52 ESR 5 MM/HR (0-20) 01/01/23 12:52 Sodium 141 mmol/L (135-145) 01/01/23 12:53 Potassium 3.9 mmol/L (3.3-5.1) 01/01/23 12:53 Chloride 104 mmol/L (96-108) 01/01/23 12:53 Carbon Dioxide 31 mmol/L (22-29) H 01/01/23 12:53 Anion Gap 10 (12-20) L 01/01/23 12:53 BUN 7 mg/dL (9-16) L 01/01/23 12:53 Creatinine 0.69 mg/dL (0.5-1.4) 01/01/23 12:53 Estim Creat Clear Calc 87.9 01/01/23 12:53 Estimated GFR > 60 01/01/23 12:53 Random Glucose 135 mg/dL (60-115) H 01/01/23 12:53 Fasting Glucose 133 mg/dL (60-99) H 12/30/22 11:46 Estimat Average Glucose 108 mg/dL 12/22/22 08:24 Hemoglobin A1c % 5.4 % (<6.0) 12/22/22 08:24 Calcium 8.6 mg/dL (8.4-10.2) 01/01/23 12:53 Total Bilirubin 0.3 mg/dL (0.0-1.0) 12/30/22 11:46 AST 32 U/L (5-31) H 12/30/22 11:46 ALT 36 U/L (0-31) H 12/30/22 11:46 Alkaline Phosphatase 50 U/L (39-117) 12/30/22 11:46 C-Reactive Protein < 0.10 mg/dL (< or = 0.50) 01/01/23 12:53 Total Protein 6.4 g/dL (6.5-8.0) L 12/30/22 11:46 Albumin 3.9 g/dL (3.5-5.0) 12/30/22 11:46 Triglycerides 57 mg/dL (<150) 12/22/22 08:24 Cholesterol 182 mg/dL (<200) 12/22/22 08:24 LDL Cholesterol, Calc 110 mg/dL (<100) H 12/22/22 08:24 HDL Cholesterol 61 mg/dL (>40) 12/22/22 08:24 Lipase 13 U/L (8-78) 01/01/23 12:53 Vitamin B12 778 pg/mL (200-900) 12/22/22 08:24 Folate 11.9 ng/mL (> or = 4.0) 12/22/22 08:24 TSH 3.32 uIU/mL (0.32-4.0) 01/02/23 09:22 Free T4 0.87 ng/dL (0.71-1.85) 01/02/23 09:22 Urine Color Yellow 01/01/23 12:30 Urine Appearance Cloudy 01/01/23 12:30 Urine pH >= 9.0 (5.0-9.0) 01/01/23 12:30 Ur Specific [place] 1.015 (1.005-1.025) 01/01/23 12:30 Urine Protein Negative mg/dL (Neg-Trace) 01/01/23 12:30 Urine Glucose (UA) Negative mg/dL (Negative) 01/01/23 12:30 Urine Ketones Negative mg/dL (Negative) 01/01/23 12:30 Urine Blood Negative (Negative) 01/01/23 12:30 Urine Nitrite Negative (Negative) 01/01/23 12:30 Ur Leukocyte Esterase Negative (Negative) 01/01/23 12:30 Impressions [facility]UB X-Ray 01/01/23 11:46 IMPRESSION: 1. Mild constipation. No acute process seen. 2. IUD in the pelvis. . Abdomen/Pelvis CT 01/01/23 19:22 IMPRESSION: 1. Large stool burden throughout the colon. 2. Status post cholecystectomy with pneumobilia. 3. Stable dilatation of the pancreatic duct. 4. IUD in good position. 5. Other incidental findings as described above. Fleischner guidelines were followed. Imaging Abdomen CT scan report/results: report reviewed and image reviewed CT scan - pelvis: report reviewed and image reviewed Assessment and Plan (1) Constipation by delayed colonic transit: Status: Acute [age] year old female with severe constipation. This likely secondary to her being on anticholinergic psych medications. She also had severe urinary retention as well. I have reviewed her CAT scan and she has very heavy stool volume throughout her entire colon consistent with this constipation. I did a full digital rectal exam. There was note of a lot of air in the rectal vault but this was empty of stools. She did state that she had a bowel movement this morning after some enemas She already had taken some GoLYTELY as well but this may take a while to work because of the heavy stool volume. I have recommended for her to be on IV fluids and to just been clear liquids for now. Abdominal exam is very benign although she does have some distension. I will see her again in the morning and probably repeat the rectal exam. She understands that in severe situations, she may need a laparotomy with colostomy. Procedures Date of Service Date of Service: 01/06/23
--- NOTE | 2023-01-02 13:05 | PM.PSYDC ---
DS: Providers Provider Date of Service: 01/02/23 Date of admission: 12/21/22 18:21 Date of discharge: 01/02/23 Primary care physician: Unknown Physician Admitting clinician: Bernadette Flannery Attending physician on admission: Brando Hou Consults: 12/21/22 17:11 Consult to Hospitalist Routine Comment: Consulting Provider: Hospitalist Reason For Exam: medical H&P 12/24/22 13:01 Addiction Medicine Routine Consulting Provider: Addiction Covering Reason for consultation: Alcohol use, patient requesting Naltrexone. Non-urgent Has provider been notified: No 12/30/22 11:18 Consult to Gastroenterology Routine Consulting Provider: Dustin Nguyễn Reason for consultation: ?left mid abdomen mass/upper RQ abdominal pain/abnormal CT Has provider been notified: Yes 12/30/22 19:52 Consult to Hospitalist Stat Comment: Consulting Provider: Hospitalist Reason For Exam: severe persist. abd pain, abnorm CT scan, req meds 01/01/23 11:24 Consult to General Surgery Routine Consulting Provider: [facility] [place] [facility] General Surgeons Reason for consultation: severe abd pain, severe constipation, no bm [facility] Attending physician on discharge: Brando Hou Discharging clinician: Glo Escobar DS: Diagnosis Discharge Diagnosis (1) Urine retention: Status: Acute (2) Constipation by delayed colonic transit: Status: Acute Mental Status Exam Mental Status Exam Narrative: Pt is alert and oriented; behavior is cooperative, friendly and calm; dressed in casual attire; mood is described as good ; eye contact appropriate; Speech is normal rate, volume and prosody and not pressured; no psychomotor agitation/retardation present; thought process is organized and goal directed; Thought content is on tx; denies SI/HI. There is no evidence of perceptual disturbance. Patients insight and judgment are fair. Data Data Completed and Pending Completed studies during hospitalization [Text1]: 12/30/22 01/01/23 01/01/23 11:46 12:30 12:52 WBC 6.9 6.5 RBC 3.93 L 3.73 L Hgb 12.5 11.8 L Hct 36.9 L 35.3 L MCV 93.9 94.6 MCH 31.8 31.6 MCHC 33.9 33.4 RDW 11.6 11.9 Plt Count 236 241 MPV 8.6 L 9.1 L Immature Gran % (Auto) 0.3 0.3 Neut % (Auto) 67.3 62.6 Lymph % (Auto) 24.0 28.3 Dickey % (Auto) 7.0 7.1 Eos % (Auto) 1.0 1.4 Baso % (Auto) 0.4 0.3 Lymph # (Auto) 1.7 1.8 Dickey # (Auto) 0.5 0.5 Eos # (Auto) 0.1 0.1 Baso # (Auto) 0.0 0.0 Abs Immat Gran (auto) 0.02 0.02 Absolute Neuts (auto) 4.6 4.1 Absolute Nucleated RBC 0.000 0.000 Nucleated RBC % (auto) 0.0 0.0 ESR 5 Sodium 140 Potassium 4.0 Chloride 107 Carbon Dioxide 30 H Anion Gap 7 L BUN 9 Creatinine 0.68 Estim Creat Clear Calc 89.3 Estimated GFR > 60 Random Glucose Fasting Glucose 133 H Calcium 8.9 Total Bilirubin 0.3 AST 32 H ALT 36 H Alkaline Phosphatase 50 C-Reactive Protein Total Protein 6.4 L Albumin 3.9 Lipase 16 TSH Free T4 Urine Color Yellow Urine Appearance Cloudy Urine pH >= 9.0 Ur Specific [place] 1.015 Urine Protein Negative Urine Glucose (UA) Negative Urine Ketones Negative Urine Blood Negative Urine Nitrite Negative Ur Leukocyte Esterase Negative 01/01/23 01/02/23 12:53 09:22 WBC RBC Hgb Hct MCV MCH MCHC RDW Plt Count MPV Immature Gran % (Auto) Neut % (Auto) Lymph % (Auto) Dickey % (Auto) Eos % (Auto) Baso % (Auto) Lymph # (Auto) Dickey # (Auto) Eos # (Auto) Baso # (Auto) Abs Immat Gran (auto) Absolute Neuts (auto) Absolute Nucleated RBC Nucleated RBC % (auto) ESR Sodium 141 Potassium 3.9 Chloride 104 Carbon Dioxide 31 H Anion Gap 10 L BUN 7 L Creatinine 0.69 Estim Creat Clear Calc 87.9 Estimated GFR > 60 Random Glucose 135 H Fasting Glucose Calcium 8.6 Total Bilirubin AST ALT Alkaline Phosphatase C-Reactive Protein < 0.10 Total Protein Albumin Lipase 13 TSH 3.32 Free T4 0.87 Urine Color Urine Appearance Urine pH Ur Specific [place] Urine Protein Urine Glucose (UA) Urine Ketones Urine Blood Urine Nitrite Ur Leukocyte Esterase Imaging Diagnostic Imaging Impressions Abdomen/Pelvis CT 12/29/22 20:50 IMPRESSION: 1. Technically suboptimal study given the absence of oral and intravenous contrast and lack of body fat. 2. On this limited images, there is a suspicious soft tissue mass identified within the left mid abdomen laterally and possible soft tissue mass versus nonopacified bowel within the central upper abdomen. Fluid containing structure in the region of the urinary bladder likely represent physiologically distended bladder and less likely to be midline cystic mass with collapsed bladder. A follow-up repeat CT scan of the abdomen and pelvis following administration of adequate amount of oral contrast (to opacify the entire small and large bowel with appropriate waiting time), and intravenous contrast is recommended including possible delayed images to opacify the urinary bladder for further clarification. Fleischner guidelines were followed. Abdomen/Pelvis CT 12/30/22 16:03 IMPRESSION: The soft tissue mass left mid abdomen is not seen as previously described and likely represented unopacified bowel on prior exam. There is a residual area of soft tissue left mid abdominal associated with bowel loops also possibly unopacified bowel versus bowel thickening. Consider repeat examination in 1-3 months with oral contrast. There is retained stool throughout the colon. There is partial twisting of the central mesentery without bowel dilatation of uncertain significance. The appendix is not seen. Moderate hiatal hernia. Common bile duct and intrahepatic biliary air is noted. Fleischner guidelines were followed. KUB X-Ray 12/31/22 15:00 IMPRESSION: Interval improvement. The amount of fecal material in the colon has decreased compared to 12/30/2022. There is no evidence of bowel obstruction. KUB X-Ray 01/01/23 11:46 IMPRESSION: 1. Mild constipation. No acute process seen. 2. IUD in the pelvis. . Abdomen/Pelvis CT 01/01/23 19:22 IMPRESSION: 1. Large stool burden throughout the colon. 2. Status post cholecystectomy with pneumobilia. 3. Stable dilatation of the pancreatic duct. 4. IUD in good position. 5. Other incidental findings as described above. Fleischner guidelines were followed. DS: Summary Hospital Course Hospital Course: Ms. Acosta is a 47 year-old woman who initially self presented to Police Department at [place] reporting concerns of neighbors talking about her, monitoring her conversations while she was at home, suspecting neighbors are trying to frame her to take her daughter. Police Department later sent patient to [facility] ED, which pt was in agreement. In the ED, pt continued to report paranoid ideas about neighbors. She also reported suicidal ideation without specific plan triggered by overwhelming feeling related to paranoid delusions. In the ED, utox was negative. ED labs included CBC and CMP which were large unremarkable. Per Trevor report, pt had similar episode back in 07/03/20, which they suspected was related to adderall use. On the unit, pt presents as calm and cooperative. She reports she has lived in complex apartment for some years. She reports she has known these neighbors for some years as well and did not have concerns about them until recently. She reports everything change in September when neighbors started to calling me names. She reports she did not see them saying these but heard them from outside. She reports she also started suspecting that they could hear her conversations while she was in the apartment and that they had hacked her phone. She suspects they are trying to frame her and then take her daughter. She states her daughter has a trust from her father and neighbors are after it. She reports one prior episode of psychosis and delusions, but she states this is different. She reports she is sure something is going on. She reports she is glad she was brought to a hospital that is far from [place] as she worries they can hear her and monitor. Collateral information from friend who reports psychosis/delusions in recent month otherwise pt stable, one previous episode of psychosis and delusions (with significant somatic delusions- thinking she was growing teeth on face) back in 2020. Otherwise describe as fairly functional. During hospital stay, increase risperidone to 1mg po daily and 2mg po qhs. continue cogentin 1mg po BID. Move Ritalin to AM and 2PM. Add an extra dose of Klonopin 0.5 mg PRN in the afternoon. Hold Voltaren. Start Ibuprofen 800 mg TID PRN. Start Naltrexone per addiction medicine. Patient reports feeling pretty good today. She reports feeling hopeful after speaking to addiction medicine yesterday. Pt reports sleeping well; pt stated, I haven't slept this well in months . Continues to present with paranoia regarding neighbors. Pt reports she has been in contact with [facility] and is looking for a new place to live so I don't have to be near those neighbors anymore . She is interested in attending IOP at the [facility]. denies SI/HI/VH/AH. Risperidal increased to 2mg PO BID. Patient reports feeling good today. denies any side effects from increase in risperidal. Patient reports finding the groups to be helpful. States she is looking forward to discharge and has made hotel arraignments until my new apartment is ready ;looking forward to possibly going to the [facility]. She is hoping to be discharged on Monday. Patient reports feeling stressed today. Pt easily agitated;irritable. Pt reporting she wants to stay until Monday because I have no where to go ; she reports she does not want to return to her apartment which holds her belongings or go to a hotel until she finds a new apartment. Pt stated, no one here is helping me. I can't look at my phone, the hospice social worker isn't calling anyone. I want my klonopin 0.5 back . Patient then started yelling at T/W d/t writing down notes from our conversation and not having constant eye contact. Pt stated, why are you not looking at me?! ; T/W explained that her concerns were being written down to be addressed. When T/W put pen down and looked at patient to provide full attention, pt stated, you're not listening to me! . T/W stated to patient that staff are trying to meet her needs but it appears that nothing is appeasing her. Pt stated, you're right! nothing is appeasing me! . pt then walked out of office. Start: Klonopin 0.5mg PO daily PRN DC clonidine and hydroxyzine d/t patient reporting it is not helping with my anxiety . Add Sudafed PRN and change Risperdal all at hs. GI consult ordered- recommended repeat, abdominal CT with contrast (ordered). pt constipated, ordered miralax. simethicone bloating. KUB ordered. GI Dr. Nguyễn and Hospitalist Sally Goddard following- until constipation and bladder distension not improved she may need medical admission. cogentin discontinued due to anticholigernic properties worsening constipation and urinary retention (no eps) decrease risperidone to 2mg po qhs- avoid exacerbation of anticholigergic side effects although less with this antipsychotic than others.psychiatrically stable- No SI/HI, although paranoid delusion towards neighbors persist. Decision was made to move patient to the medical floors as she has been cleared psychiatrically and reports she is feeling much better in that regard, for further management of severe constipation/fecal impaction. It was asked by hospitalist (Sally Goddard) for all orders to be omitted on transfer to medical floor. Patient to follow up with outpatient providers once discharged. Time spent discussing smoking cessation with patient: 3 to 10 minutes Status at Discharge Cognitive/behavioral status at discharge: Patient was interviewed prior to discharge and found to be fully oriented and without any SI or HI. Patient has insight and demonstrates good judgment in terms of wanting to pursue treatment. Patient is not in imminent risk of harm to self or others and has a safety plan that includes presenting to the closest ER or calling 911 if feeling unsafe. Patient has been observed closely by nursing and unit staff throughout admission; patient has not engaged in any behaviors that suggest dangerousness to self or others and has demonstrated appropriate behaviors and impulse control. Functional status at discharge: independent ambulation Overall status at discharge: patient is back to baseline Time Spent with Patient Time attestation: Total time managing care of this patient today _30___ minutes. Time spent: Less than 30 minutes Discharge Plan Discharge Anticipated Discharge Date/Time: 01/02/23 13:00 Patient Disposition: Xfer Other Discharge Diagnosis: Schizoaffective d/o, Constipation, urine rentention Referrals: Meghan Green (Psychiatry) [Other] - 01/10/23 11:30 am (TELEHEALTH APPOINTMENT Per [facility] staff, the process of setting up the Vivitrol intake will be discussed during this appointment with your medication prescriber. ) Betty Berry (Therapy) [Other] - 1 Week (Please follow up with your therapist regarding your next appointment -Please speak with your therapist about the partial hospitalization program (PHP) during your next appointment. ) Physician,Unknown J [Primary Care Provider] - 1 Week Discharge Medications: Discontinued gabapentin 600 mg tablet PO methylphenidate HCl 10 mg tablet 10 mg PO BID methylphenidate HCl 20 mg tablet 20 mg PO TID clonazepam 1 mg tablet 1 mg PO BID PRN (Reason: Anxiety) diclofenac sodium 75 mg tablet,delayed release (DR/EC) 75 mg PO BID albuterol sulfate 90 mcg/actuation HFA aerosol inhaler inhalation Pulmicort Flexhaler 90 mcg/actuation Aerosol Powdr Breath Activated 2 inh INHALATION BID Discharge Orders: Discharge Order (Routine); Ordered 01/02/23 Ordered By: Glo Escobar Diet: Regular diet Activity on Discharge: As tolerated Stand Alone Forms: Patient Portal Discharge page, Community Support Care Plan Goals: Maintain mood and safe behaviors Take medications as prescribed Practice coping skills Continue with outpatient providers and reach out to them as needed Health Concerns: Mood stability and behaviors urinary rentension constipation Plan of Treatment: Follow up with your PCP, psychiatric provider and other outpatient providers regarding above concerns Take medications as prescribed Assessment: Patient was interviewed prior to discharge and found to be fully oriented and without any SI or HI. Patient has insight and demonstrates good judgment in terms of wanting to pursue treatment. Patient is not in imminent risk of harm to self or others and has a safety plan that includes presenting to the closest ER or calling 911 if feeling unsafe. Patient has been observed closely by nursing and unit staff throughout admission; patient has not engaged in any behaviors that suggest dangerousness to self or others and has demonstrated appropriate behaviors and impulse control. Discharge Date/Time: 01/02/23 15:22
== END 2023-01-02 15:22 | disposition other institution (70) | DRG 885 ==
PROVIDERS: Internal Medicine; Physician Assistant; Social Worker; Admitting Provider Psychiatry & Neurology Psychiatry; Responsible Provider Registered Nurse; Visit Provider Psychiatry & Neurology Psychiatry
DX: F29 Unspecified psychosis not due to a substance or known physiological condition (principal); R33.0 Drug induced retention of urine; K59.03 Drug induced constipation; T44.3X5A Adverse effect of other parasympatholytics [anticholinergics and antimuscarinics] and spasmolytics, initial encounter; F17.210 Nicotine dependence, cigarettes, uncomplicated; Z71.6 Tobacco abuse counseling; Z79.899 Other long term (current) drug therapy
CPT/HCPCS: 36415; 74018; 74176; 74177; 80048; 80053; 80061; 81003; 82607; 82746; 83036; 83690; 84439; 84443; 85025; 85652; 86140; 93005; J0737; J1170; J1885; J2060; J2270; J2405; Q9967

== ENCOUNTER → 2022-12-21 18:21 | Outpatient (BNV) | payer MEDICARE, MEDICAID, SELFPAY | PROVIDERS: Admitting Provider Psychiatry & Neurology Psychiatry; Responsible Provider Registered Nurse; Visit Provider Psychiatry & Neurology Psychiatry | DX: F29 Unspecified psychosis not due to a substance or known physiological condition (principal) | CPT/HCPCS: 99232 ==

== ENCOUNTER → 2022-12-21 18:21 | Outpatient (BNV) | payer MEDICARE, MEDICAID, SELFPAY | PROVIDERS: Admitting Provider Psychiatry & Neurology Psychiatry; Responsible Provider Registered Nurse; Visit Provider Surgery | DX: K59.01 Slow transit constipation (principal) | CPT/HCPCS: 99222 ==

== ENCOUNTER → 2022-12-21 18:21 | Outpatient (BNV) | payer MEDICARE, MEDICAID, SELFPAY | PROVIDERS: Admitting Provider Psychiatry & Neurology Psychiatry; Responsible Provider Registered Nurse; Visit Provider Internal Medicine Gastroenterology | DX: K59.01 Slow transit constipation (principal); R33.9 Retention of urine, unspecified | CPT/HCPCS: 99222; 99232 ==

== ENCOUNTER → 2022-12-21 18:21 | Outpatient (BNV) | payer MEDICARE, MEDICAID, SELFPAY | PROVIDERS: Admitting Provider Psychiatry & Neurology Psychiatry; Visit Provider Student in an Organized Health Care Education/Training Program | DX: M62.838 Other muscle spasm (principal); M19.011 Primary osteoarthritis, right shoulder | CPT/HCPCS: 99222; 99499 ==

== ENCOUNTER → 2022-12-21 18:21 | Outpatient (BNV) | payer MEDICARE, MEDICAID, SELFPAY | PROVIDERS: Admitting Provider Psychiatry & Neurology Psychiatry; Responsible Provider Registered Nurse; Visit Provider Urology | DX: R33.9 Retention of urine, unspecified (principal) | CPT/HCPCS: 99221 ==

== ENCOUNTER → 2022-12-21 18:21 | Outpatient (BNV) | payer MEDICARE, MEDICAID, SELFPAY | PROVIDERS: Admitting Provider Psychiatry & Neurology Psychiatry; Visit Provider Social Worker | DX: F25.1 Schizoaffective disorder, depressive type (principal); R33.9 Retention of urine, unspecified; K59.01 Slow transit constipation | CPT/HCPCS: 90792; 99231; 99232; 99238 ==

== ENCOUNTER 2023-01-02 14:45 | Observation (INO) | payer MEDICARE, MEDICAID, SELFPAY ==
--- NOTE | ~2023-01-02 | XR_ITS ---
EXAMINATION: XR ABDOMEN KUB CLINICAL INDICATION: Abdominal pain COMPARISON: None available. TECHNIQUE: AP view of the abdomen. FINDINGS: The bowel gas pattern is unremarkable normal with no evidence of ileus or obstruction. Gas and stool seen throughout the colon. There is air in nondilated small bowel. No unusual soft tissue calcifications are noted. The bones are unremarkable. IUD is present in the uterus. XR/XR KUB IMPRESSION: Unremarkable examination.
--- NOTE | 2023-01-02 15:09 | PM.IMHP ---
History of Present Illness Date of Service: 01/02/23 Attending physician on admission: Angel Robbins Chief Complaint: severe constipation/fecal impaction, abd pain 47-year-old female with history of biliary obstruction, osteoarthritis, recurrent shingles, recurrent muscle spasms, schizoaffective disorder, depression, IBS, and remote history of bowel obstruction as an infant as well as generalized anxiety disorder who had been admitted to psychiatry for management of increasing anxiety, depression, and paranoia related to social stressors at home. About 3 days ago, developed intermittent severe abdominal pain typically brought on by food. CT scan at that time showed very high stool volume in the entire colon consistent with constipation as well as possible mass. Repeat CT scan was ordered with IV contrast which ruled out possibility of mass. Patient has been seen by Gastroenterology and has trialed multiple oral constipation medications and has received several enemas. She also completed GoLYTELY and has not had full bowel movement. Anticholinergic medications such as Cogentin were discontinued and dose of risperidone was lowered to 2 mg. She is not on any other anticholinergic medications at this time. She did require IM her cardiac medication at times due to the severity of her pain though administration of these was limited to avoid exacerbation of the constipation. She states she does occasionally pass flatus. Secondary to the severe constipation verses psychiatric medication use, she was also noted to have urinary retention with straight catheterization yielding 1.1 L of urine. She states she has been able to urinate since was also evaluated by Urology who is recommending intermittent self catheterizations as needed which patient is agreeable to. KUB yesterday appeared to have some improvement in constipation however severe pain persisted and CT abdomen/pelvis with again revealing large stool burden throughout the colon. She again received mineral oil enema last night and again this morning. Reports she had very scant watery output with small amount of stool but symptoms have not resolved. Case was again discussed with General surgery who evaluated patient bedside and attempted digital disimpaction. There is noted to be air in the rectum without any significant stool. Decision was made to move patient to the medical floors as she has been cleared psychiatrically and reports she is feeling much better in that regard, for further management of severe constipation/fecal impaction. Review of Systems Review of Systems: General: No fevers, malaise, unintentional weight loss HEENT: No blurred vision, diplopia. No sore throat, nasal congestion, rhinorrhea, sinus pain, ear pain Cardiovascular: No chest pain, palpitations, or leg edema Respiratory: No shortness of breath, wheezing, cough GI: +abd pain, +nausea, +constipation. No vomiting, diarrhea, melena, hematochezia : +urinary retention. No dysuria, hematuria, increased urinary frequency MSK: No myalgia, back pain Neuro: No headaches, weakness, paresthesias Skin: No rashes or lesions [facility] Medical History Shingles Depression Generalized anxiety disorder Schizoaffective disorder Biliary obstruction Muscle spasms of both lower extremities Household Members: Children Housing: Apartment Housing Other:: but we were in the process of moving to my aunts house Do you presently have visiting nurse or other home services: No Patient Tobacco Use Status: Current everyday Tobacco user Tobacco use type: Cigarette Cigarette Packs Per Day: 1 Cigarettes Per Day: 10 Years Smoked: 15 e-Cigarette/Vaping Use: Never Used Second Hand Smoke Exposure: Yes Substance Use Type: Crack/Cocaine, Marijuana and Caffiene Advance Directives: No service: No Sexual orientation: Straight/Heterosexual Meds Allergies Allergy/AdvReac Type Severity Reaction Status Date / Time clindamycin Allergy Intermediate Rash Verified 12/21/22 17:11 Active Medications: Current Medications Acetaminophen (Acetaminophen 325 Mg Tablet) 650 mg PO Q6H PRN PRN Reason: Pain, Mild (Pain Scale 1-3) Bisacodyl (Bisacodyl 5 Mg Tablet.) 10 mg PO DAILY JULIA Clonazepam (Clonazepam 1 Mg Tablet) 1 mg PO BID PRN PRN Reason: Anxiety Clonazepam (Clonazepam 0.5 Mg Tablet) 0.5 mg PO DAILY PRN PRN Reason: Anxiety Diclofenac Sodium (Diclofenac Sodium Delayed Rel 75 Mg Tablet.) 75 mg PO BID JULIA Docusate Sodium (Docusate Sodium 100 Mg Capsule) 100 mg PO BID JULIA Gabapentin (Gabapentin 600 Mg Tablet) 600 mg PO TID JULIA Sodium Chloride (Ns) 1,000 mls @ 100 mls/hr IVCONT .Q10H JULIA Magnesium Hydroxide (Milk Of Magnesia 30 Ml Oral.Susp) 30 ml PO DAILY PRN PRN Reason: Constipation Methylphenidate HCl (Methylphenidate Hcl 10 Mg Tablet) 20 mg PO BID@0800,1330 JULIA Ondansetron HCl (Ondansetron Hcl 4 Mg/2 Ml Vial) 4 mg IVPUSH Q8H PRN PRN Reason: Nausea and Vomiting Sodium Biphosphate/Sodium Phosphate (Sodium Phosphate,[place]-Dibasic 133 Ml Enema) 133 ml [place] DAILY PRN PRN Reason: Constipation Sodium Chloride (0.9 % Sodium Chloride Flush 3 Ml Syringe) 3 ml IVFLUSH QSHIFT JULIA Physical Exam Vital Signs and Narrative: Constitutional - Awake and Alert, No apparent distress Eyes - PERRLA, EOMI Cardiovascular - S1S2, RRR, No edema Respiratory - Normal lung expansion, Normal respiratory effort, No respiratory distress, CTA bilaterally Gastrointestinal - mild distension with ttp across upper abdomen without guarding or rebound. +BS Extremities - no calf tenderness bilaterally, no swelling Skin - Warm/Dry Neurological - Alert & oriented x3 Psychological - Appropriate affect Assessment and Plan (1) Constipation by delayed colonic transit: Status: Acute (2) Urine retention: Status: Acute Plan 47-year-old female with history of biliary obstruction, osteoarthritis, recurrent shingles, recurrent muscle spasms, schizoaffective disorder, depression, IBS, and remote history of bowel obstruction as an as well as generalized anxiety disorder to be observed for severe constipation/fecal impaction with intermittent severe abd pain. #Severe constipation/fecal impaction- likely iatrogenic -Ct abd/pelvis continues to show large stool burden throughout the colon, worst in the ascending colon -has been golytely (12/31), multiple fleet enemas, miralax BID, docusate BID, milk of mag prn -General surgery attempted digital disimpaction with no stool noted in rectal vault, just air -Admit to M/S -Clear liquid diet -IVF -Limit use of narcotic pain medications. Continue tylenol, diclofenac -General surgery consult #Urinary retention- intermittent -r/t constipation vs iatrogenic -straight cath on M3 yielded 1.1L urine, UA negative -Seen by urology recommending intermittent straight cath prn. Pt educated and agreeable -Bedside bladder scan qshift prn -Monitor I&O #OA -diclofenac, tylenol prn #Schizoaffective d/o, depression -Psychiatrically cleared from M3 -Continue risperidone 2mg nightly (dose lowered) -Outpt follow up with psychiatry on 01/10 -Need rx's for risperidone on d/c DVT prophylaxis- SCPs Full code Quality Stroke Does the patient have a stroke diagnosis?: No VTE Prior VTE?: No VTE Risk Level:: Medical - moderate - high VTE Device Contraindication: Treatment Not Indicated VTE Drug Contraindication: N/A - Med Ordered
[2023-01-02 16:00] VITALS: BP 138/83; PULSE 66; RESP 18; TEMP 36.4; O2SAT 98
[2023-01-02 16:08] VITALS: BMI 22.6
[2023-01-02] MEDS: 0.9 % Sodium Chloride 1,000 ML 100 ML IVCONT (16:43)
[2023-01-02] MEDS: Simethicone 80 MG TAB.CHEW PO ×2 (16:43→20:07)
[2023-01-02] MEDS: Gabapentin 600 MG TABLET PO ×2 (16:43→20:07)
[2023-01-02] MEDS: Acetaminophen 325 MG TABLET 650 MG PO (16:55)
[2023-01-02] MEDS: Morphine Sulfate 2 MG/ML CARTRIDGE 1 MG IVPUSH (17:33)
[2023-01-02 17:43] LABS: Alanine Aminotransferase 41 U/L (0-31); Alkaline Phosphatase 59 U/L (39-117); Anion Gap 7 (12-20); Aspartate Amino Transferase 37 U/L (5-31); Bilirubin Total 0.3 mg/dL (0.0-1.0); Blood Urea Nitrogen 5 mg/dL (9-16); Carbon Dioxide 31 mmol/L (22-29); Chloride 107 mmol/L (96-108); Creatinine Clr Calc Pharmacy 90.5; Estimated Glomerular Filt Rate > 60; Glucose Random 85 mg/dL (60-115); Potassium 4.1 mmol/L (3.3-5.1); Sodium 141 mmol/L (135-145); Total Protein 6.5 g/dL (6.5-8.0)
[2023-01-02] MEDS: ondansetron HCL 4 MG/2 ML VIAL IVPUSH (19:24)
[2023-01-02] MEDS: Ketorolac Tromethamine 15 MG/ML VIAL IVPUSH (19:24)
--- NOTE | 2023-01-02 19:53 | PM.EVENT ---
Event Note Date of Service: 01/02/23 Event Note: Pt reported 10/10 pain and given 1mg IV morphine around 1730 which she states helped somewhat though has not been pain free. She states even the drinking the clears is now worsening her pain. She states she passed a small amount of gas attempting to move her bowels and moved very small pieces of stool. During this felt worsening 10/10 sharp pain across the upper abdomen radiating to the back. She was given IV torodol without any effect. She is sitting up holding her knees to chest, uncomfortable appearing. Abd soft, but distended, diffusely tender. No guarding. Will change to NPO, attempt another fleet enema. Dilaudid 0.5mg x1 ordered. Pt advised that additional narcotics should be avoided or at least limited/spread out as much as possible and she expresses understanding. Time Spent With Patient Time: Total time managing care of this patient today ____ minutes.
[2023-01-02 20:00] VITALS: BP 113/68; PULSE 58; RESP 18; TEMP 36.3; O2SAT 98
[2023-01-02] MEDS: HYDROmorphone HCl 0.5 MG/0.5 ML SYRINGE IVPUSH (20:06)
[2023-01-02] MEDS: Docusate Sodium 100 MG CAPSULE PO (20:07)
[2023-01-02] MEDS: 0.9 % Sodium Chloride Flush 3 ML SYRINGE IVFLUSH (20:07)
[2023-01-02] MEDS: polyethylene glycoL 3350 17 GM POWD.PACK PO (20:07)
[2023-01-02] MEDS: clonazePAM 1 MG TABLET PO (20:07)
[2023-01-02] MEDS: traZODone HCL 50 MG TABLET PO ×2 (20:07→21:30)
[2023-01-02] MEDS: Sodium Phosphate,Mono-Dibasic 133 ML ENEMA PR (20:32)
--- NOTE | 2023-01-02 21:11 | PHA.MEDREC ---
Pharmacy Consult ? Medication Reconciliation Pharmacy has completed the medication reconciliation.PT DIRECT ADMIT. DISCHARGE SUMMARY USED FOR MED REC.
[2023-01-03] MEDS: 0.9 % Sodium Chloride 1,000 ML 100 ML IVCONT ×2 (02:17→13:00)
[2023-01-03 03:17] VITALS: BP 92/55; PULSE 63; RESP 18; TEMP 36.3; O2SAT 98
--- NOTE | 2023-01-03 03:45 | PC.NURSE ---
pt's BP is 92/55, pt is asymptomatic, Dr. Barrera aware.
[2023-01-03] MEDS: Omeprazole 20 MG CAPSULE.DR PO (05:32)
[2023-01-03 06:05] LABS: MANUAL DIFF FLAG NO
[2023-01-03 06:35] LABS: Basophils Percent Auto 0.2 % (0-2); Eosinophils Absolute Auto 0.2 X10*3/uL (0.0-0.4); Eosinophils Percent Auto 3.6 % (0-4); Hematocrit 30.5 % (37.0-47.0); Hemoglobin 10.3 g/dl (12.0-16.0); Imm Gran Abs Auto 0.01 X10*3/uL (0.00-0.03); Imm Gran Pct Auto 0.2 % (0.0-0.4); Lymphocytes Absolute Auto 1.7 X10*3/uL (1.2-4.9); Lymphocytes Percent Auto 32.3 % (20-40); Mean Corpuscular HGB Conc 33.8 g/dl (31.0-35.0); Mean Corpuscular Hemoglobin 31.7 pg (27.0-33.0); Mean Corpuscular Volume 93.8 fL (80.0-98.0); Mean Platelet Volume 9.3 fL (9.4-12.3); Monocytes Absolute Auto 0.4 X10*3/uL (0.1-1.2); Monocytes Percent Auto 8.2 % (2-11); Neutrophils Percent Auto 55.5 % (45-73); Platelet Count 216 X10*3/uL (160-400); Red Blood Count 3.25 X10*6/uL (4.20-5.50); Red Cell Distribution Width 11.8 % (11.0-16.0); White Blood Count 5.4 X10*3/uL (4.8-10.8)
[2023-01-03 07:30] VITALS: BP 95/51; PULSE 66; RESP 18; TEMP 36.7; O2SAT 96
[2023-01-03] MEDS: Ketorolac Tromethamine 15 MG/ML VIAL IVPUSH ×3 (08:08→20:22)
[2023-01-03] MEDS: Naltrexone HCl 50 MG TABLET PO (08:10)
[2023-01-03] MEDS: Simethicone 80 MG TAB.CHEW PO ×3 (08:10→20:28)
[2023-01-03] MEDS: Gabapentin 600 MG TABLET PO ×3 (08:10→20:28)
[2023-01-03] MEDS: Methylphenidate HCl 10 MG TABLET 20 MG PO ×2 (08:10→14:24)
--- NOTE | 2023-01-03 08:18 | PM.PNGS ---
Subjective Subjective Date of Service: 01/03/23 Interval history: passed large amounts of stools overnight says she had accidents before reaching the bathroom Still complains of some abdominal pain although better Physical Exam Vital Signs: Vital Signs: Last Vital Signs Temp 98.0 F 01/03/23 07:30 Pulse 66 01/03/23 07:30 Resp 18 01/03/23 07:30 BP 95/51 L 01/03/23 07:30 Pulse Ox 96 01/03/23 07:30 O2 Del Method Room Air 01/03/23 07:30 BMI result Body Mass Index 22.6 Const: General: comfortable and no acute distress Resp: Effort & Inspection: normal respiratory effort Cardio: Rate: regular rate GI: Other: Mild diffuse tenderness, no guarding or rebound, Inspection: No distended Palpation (GI): Soft to palpation Objective Data Active Medications Acetaminophen (Acetaminophen 325 Mg Tablet) 650 mg PO Q6H PRN PRN Reason: Pain, Mild (Pain Scale 1-3) Last Admin: 01/02/23 16:55 Dose: 650 mg Documented By: KIZZY Bisacodyl (Bisacodyl 5 Mg Tablet.Dr) 10 mg PO DAILY [facility] Clonazepam (Clonazepam 1 Mg Tablet) 1 mg PO BID PRN PRN Reason: Anxiety Last Admin: 01/02/23 20:07 Dose: 1 mg Documented By: GOOD Clonazepam (Clonazepam 0.5 Mg Tablet) 0.5 mg PO DAILY PRN PRN Reason: Anxiety Docusate Sodium (Docusate Sodium 100 Mg Capsule) 100 mg PO BID [facility] Last Admin: 01/02/23 20:07 Dose: 100 mg Documented By: GOOD Gabapentin (Gabapentin 600 Mg Tablet) 600 mg PO TID [facility] Last Admin: 01/02/23 20:07 Dose: 600 mg Documented By: GOOD Sodium Chloride (Ns) 1,000 mls @ 100 mls/hr IVCONT .Q10H [facility] Last Admin: 01/03/23 02:17 Dose: 100 mls/hr Documented By: GOOD Ketorolac Tromethamine (Ketorolac Tromethamine 15 Mg/Ml Vial) 15 mg IVPUSH Q6H PRN PRN Reason: Pain, Severe (Pain Scale 7-10) Last Admin: 01/03/23 08:08 Dose: 15 mg Documented By: MATI Magnesium Hydroxide (Milk Of Magnesia 30 Ml Oral.Susp) 30 ml PO DAILY PRN PRN Reason: Constipation Methylphenidate HCl (Methylphenidate Hcl 10 Mg Tablet) 20 mg PO BID@0800,1330 [facility] Naltrexone HCl (Naltrexone Hcl 50 Mg Tablet) 50 mg PO DAILY [facility] Nicotine (Nicotine 14 Mg Patch.Td24) 14 mg TRANSDERMA DAILY PRN PRN Reason: nicotine cravings Nicotine Polacrilex (Nicotine Polacrilex 2 Mg Gum) 2 mg BUCCAL Q2H PRN PRN Reason: Nicotine Cravings Omeprazole (Omeprazole 20 Mg Capsule.Dr) 20 mg PO DAILY@0630 [facility] Last Admin: 01/03/23 05:32 Dose: 20 mg Documented By: GOOD Ondansetron HCl (Ondansetron Hcl 4 Mg/2 Ml Vial) 4 mg IVPUSH Q8H PRN PRN Reason: Nausea and Vomiting Last Admin: 01/02/23 19:24 Dose: 4 mg Documented By: GOOD Ondansetron HCl (Ondansetron Odt 8 Mg Tab.Rapdis) 8 mg TRANSLINGU Q12H PRN PRN Reason: Nausea and Vomiting Polyethylene Glycol (Polyethylene Glycol 3350 17 Gm Powd.Pack) 17 gm PO BID [facility] Last Admin: 01/02/23 20:07 Dose: 17 gm Documented By: GOOD Risperidone (Risperidone 2 Mg Tablet) 2 mg PO BEDTIME [facility] Last Admin: 01/02/23 21:29 Dose: Not Given Documented By: GOOD Non-Admin Reason: Patient Refused Simethicone (Simethicone 80 Mg Tab.Chew) 80 mg PO QIDWMHS [facility] Last Admin: 01/02/23 20:07 Dose: 80 mg Documented By: GOOD Sodium Biphosphate/Sodium Phosphate (Sodium Phosphate,[place]-Dibasic 133 Ml Enema) 133 ml [place] DAILY PRN PRN Reason: Constipation Last Admin: 01/02/23 20:32 Dose: 133 ml Documented By: YORDY Sodium Chloride (0.9 % Sodium Chloride Flush 3 Ml Syringe) 3 ml IVFLUSH QSHIFT [facility] Last Admin: 01/03/23 08:02 Dose: Not Given Documented By: MATI Non-Admin Reason: IV Running Sodium Chloride (Sodium Chloride 0.65 % Nasal 44 Ml Sprbtl) 1 spray NOSTRIL-B Q1H PRN PRN Reason: Congestion Trazodone HCl (Trazodone Hcl 50 Mg Tablet) 50 mg PO BEDTIME MRX1 PRN PRN Reason: Insomnia Last Admin: 01/02/23 21:30 Dose: 50 mg Documented By: GOOD Labs 01/03/23 05:26 01/02/23 17:21 Labs: Laboratory Results - last 24 hr 01/02/23 01/03/23 17:21 05:26 MCV 93.8 MCH 31.7 MCHC 33.8 RDW 11.8 Plt Count 216 MPV 9.3 L Immature Gran % (Auto) 0.2 Neut % (Auto) 55.5 Lymph % (Auto) 32.3 [place] % (Auto) 8.2 Eos % (Auto) 3.6 Baso % (Auto) 0.2 Lymph # (Auto) 1.7 [place] # (Auto) 0.4 Eos # (Auto) 0.2 Baso # (Auto) 0.0 Abs Immat Gran (auto) 0.01 Absolute Neuts (auto) 3.0 Absolute Nucleated RBC 0.000 Nucleated RBC % (auto) 0.0 Anion Gap 7 L Estim Creat Clear Calc 90.5 Estimated GFR > 60 Random Glucose 85 Calcium 9.0 Total Bilirubin 0.3 AST 37 H ALT 41 H Alkaline Phosphatase 59 Total Protein 6.5 Albumin 4.0 Procedures Date of Service Date of Service: 01/03/23 Progress Note: A&P Assessment and plan (1) Constipation by delayed colonic transit: Status: Acute Assessment and Plan: had multiple BMs finally abdomen remained soft and benign looks well okay to have clear liquids and advance as tolerated will need to be on a bowel regimen lytes okay will follow Time Spent With Patient Time: Total time managing care of this patient today ____ minutes. Quality Stroke Does the patient have a stroke diagnosis?: No VTE Prior VTE?: No VTE Risk Level:: Medical - moderate - high VTE Device Contraindication: Treatment Not Indicated VTE Drug Contraindication: N/A - Med Ordered
[2023-01-03] MEDS: Nicotine Polacrilex 2 MG GUM BUCCAL ×2 (08:28→10:45)
[2023-01-03] MEDS: Sodium Chloride 0.65 % Nasal 44 ML SPRBTL 1 SPRAY NOSTRIL-B (08:30)
[2023-01-03 08:43] LABS: Lipase 10 U/L (8-78)
--- NOTE | 2023-01-03 08:44 | P.PNIM_ITS ---
Subjective Subjective Date of Service: 01/03/23 Interval History: Seen in follow up for severe constipation/fecal impaction Interval history: Had 2 large bowel movements last night with some improvement in pain. Still with intermittent severe pain requiring IV narcotic medication (no response to toradol, tylenol). Tolerating clears. No n/v. Reports dark urine, but no dysuria, urgency, retension Review of Systems Review of Systems: Yes all other systems are reviewed and are negative Physical Exam 2 Vital Signs: Vital Signs: Last Vital Signs Temp 98.0 F 01/03/23 07:30 Pulse 66 01/03/23 07:30 Resp 18 01/03/23 07:30 BP 95/51 L 01/03/23 07:30 Pulse Ox 96 01/03/23 07:30 O2 Del Method Room Air 01/03/23 07:30 BMI result Body Mass Index 22.6 Constitutional - Awake and Alert, No apparent distress Eyes - PERRLA, EOMI Cardiovascular - S1S2, RRR, No edema Respiratory - Normal lung expansion, Normal respiratory effort, No respiratory distress, CTA bilaterally Gastrointestinal - mild distension, mild tenderness to palpation across the upper abdomen. +BS; No rebound or guarding Extremities - no calf tenderness bilaterally, no swelling Musculoskeletal - Normal inspection, normal ROM Skin - Warm/Dry Neurological - Alert & oriented x3, CN II-XII in tact, 5/5 strength BUE and BLE Psychological - Appropriate affect Objective Data Active Medications Acetaminophen (Acetaminophen 325 Mg Tablet) 650 mg PO Q6H PRN PRN Reason: Pain, Mild (Pain Scale 1-3) Last Admin: 01/02/23 16:55 Dose: 650 mg Documented By: KIZZY Bisacodyl (Bisacodyl 5 Mg Tablet.) 10 mg PO DAILY [facility] Clonazepam (Clonazepam 1 Mg Tablet) 1 mg PO BID PRN PRN Reason: Anxiety Last Admin: 01/02/23 20:07 Dose: 1 mg Documented By: GOOD Clonazepam (Clonazepam 0.5 Mg Tablet) 0.5 mg PO DAILY PRN PRN Reason: Anxiety Docusate Sodium (Docusate Sodium 100 Mg Capsule) 100 mg PO BID [facility] Last Admin: 01/02/23 20:07 Dose: 100 mg Documented By: JALEESAQC Gabapentin (Gabapentin 600 Mg Tablet) 600 mg PO TID [facility] Last Admin: 01/03/23 08:10 Dose: 600 mg Documented By: MATI Sodium Chloride (Ns) 1,000 mls @ 100 mls/hr IVCONT .Q10H [facility] Last Admin: 01/03/23 02:17 Dose: 100 mls/hr Documented By: GOOD Ketorolac Tromethamine (Ketorolac Tromethamine 15 Mg/Ml Vial) 15 mg IVPUSH Q6H PRN PRN Reason: Pain, Severe (Pain Scale 7-10) Last Admin: 01/03/23 08:08 Dose: 15 mg Documented By: MATI Magnesium Hydroxide (Milk Of Magnesia 30 Ml Oral.Susp) 30 ml PO DAILY PRN PRN Reason: Constipation Methylphenidate HCl (Methylphenidate Hcl 10 Mg Tablet) 20 mg PO BID@0800,1330 [facility] Last Admin: 01/03/23 08:10 Dose: 20 mg Documented By: MATI Naltrexone HCl (Naltrexone Hcl 50 Mg Tablet) 50 mg PO DAILY [facility] Last Admin: 01/03/23 08:10 Dose: 50 mg Documented By: MATI Nicotine (Nicotine 14 Mg Patch.Td24) 14 mg TRANSDERMA DAILY PRN PRN Reason: nicotine cravings Nicotine Polacrilex (Nicotine Polacrilex 2 Mg Gum) 2 mg BUCCAL Q2H PRN PRN Reason: Nicotine Cravings Last Admin: 01/03/23 08:28 Dose: 2 mg Documented By: MATI Omeprazole (Omeprazole 20 Mg Capsule.Dr) 20 mg PO DAILY@0630 [facility] Last Admin: 01/03/23 05:32 Dose: 20 mg Documented By: GOOD Ondansetron HCl (Ondansetron Hcl 4 Mg/2 Ml Vial) 4 mg IVPUSH Q8H PRN PRN Reason: Nausea and Vomiting Last Admin: 01/02/23 19:24 Dose: 4 mg Documented By: GOOD Ondansetron HCl (Ondansetron Odt 8 Mg Tab.Rapdis) 8 mg TRANSLINGU Q12H PRN PRN Reason: Nausea and Vomiting Polyethylene Glycol (Polyethylene Glycol 3350 17 Gm Powd.Pack) 17 gm PO BID [facility] Last Admin: 01/02/23 20:07 Dose: 17 gm Documented By: GOOD Risperidone (Risperidone 2 Mg Tablet) 2 mg PO BEDTIME [facility] Last Admin: 01/02/23 21:29 Dose: Not Given Documented By: GOOD Non-Admin Reason: Patient Refused Simethicone (Simethicone 80 Mg Tab.Chew) 80 mg PO QIDWMHS [facility] Last Admin: 01/03/23 08:10 Dose: 80 mg Documented By: MATI Sodium Biphosphate/Sodium Phosphate (Sodium Phosphate,[place]-Dibasic 133 Ml Enema) 133 ml [place] DAILY PRN PRN Reason: Constipation Last Admin: 01/02/23 20:32 Dose: 133 ml Documented By: YORDY Sodium Chloride (0.9 % Sodium Chloride Flush 3 Ml Syringe) 3 ml IVFLUSH QSHIFT [facility] Last Admin: 01/03/23 08:02 Dose: Not Given Documented By: MATI Non-Admin Reason: IV Running Sodium Chloride (Sodium Chloride 0.65 % Nasal 44 Ml Sprbtl) 1 spray NOSTRIL-B Q1H PRN PRN Reason: Congestion Last Admin: 01/03/23 08:30 Dose: 1 spray Documented By: MATI Comments: barcode doesn't scan. patient came with medication from . Trazodone HCl (Trazodone Hcl 50 Mg Tablet) 50 mg PO BEDTIME MRX1 PRN PRN Reason: Insomnia Last Admin: 01/02/23 21:30 Dose: 50 mg Documented By: GOOD Labs 01/03/23 05:26 01/02/23 17:21 Labs: Laboratory Results - last 24 hr 01/02/23 01/03/23 17:21 05:26 MCV 93.8 MCH 31.7 MCHC 33.8 RDW 11.8 Plt Count 216 MPV 9.3 L Immature Gran % (Auto) 0.2 Neut % (Auto) 55.5 Lymph % (Auto) 32.3 [place] % (Auto) 8.2 Eos % (Auto) 3.6 Baso % (Auto) 0.2 Lymph # (Auto) 1.7 [place] # (Auto) 0.4 Eos # (Auto) 0.2 Baso # (Auto) 0.0 Abs Immat Gran (auto) 0.01 Absolute Neuts (auto) 3.0 Absolute Nucleated RBC 0.000 Nucleated RBC % (auto) 0.0 Anion Gap 7 L Estim Creat Clear Calc 90.5 Estimated GFR > 60 Random Glucose 85 Calcium 9.0 Total Bilirubin 0.3 AST 37 H ALT 41 H Alkaline Phosphatase 59 Total Protein 6.5 Albumin 4.0 Lipase 10 Assessment and Plan (1) Constipation by delayed colonic transit: Status: Acute (2) Urine retention: Status: Acute (3) Abdominal pain: Status: Acute Plan 47-year-old female with history of biliary obstruction, osteoarthritis, recurrent shingles, recurrent muscle spasms, schizoaffective disorder, depression, IBS, and remote history of bowel obstruction as an infant as well as generalized anxiety disorder to be observed for severe constipation/fecal impaction with intermittent severe abd pain. #Severe constipation/fecal impaction- likely iatrogenic -had been golytely (12/31), multiple fleet enemas, miralax BID, docusate BID, milk of mag prn -General surgery attempted digital disimpaction yesterday with no stool noted in rectal vault, just air -2 large bowel movements overnight with some improvement in pain -still with intermittent severe pain -Tolerating clear liquid diet, advance to full liquid diet. Advance as tolerated -Tolerating clears, dc ivf -Limit use of narcotic pain medications. Continue tylenol, diclofenac -Appreciate gen surg input -Needs outpt colonoscopy #Dark urine -check UA #Urinary retention- intermittent, seems to have resolved with resolving constipation -r/t constipation vs iatrogenic -straight cath on M3 yielded 1.1L urine, UA negative -Seen by urology recommending intermittent straight cath prn. Pt educated and agreeable -Bedside bladder scan qshift prn -Monitor I&O #OA -diclofenac, tylenol prn #Schizoaffective d/o, depression -Psychiatrically cleared from M3 -Continue risperidone 2mg nightly (dose lowered) -Outpt follow up with psychiatry on 01/10 -Need rx's for risperidone on d/c DVT prophylaxis- SCPs Full code Quality Stroke Does the patient have a stroke diagnosis?: No VTE Prior VTE?: No VTE Risk Level:: Medical - moderate - high VTE Device Contraindication: Treatment Not Indicated VTE Drug Contraindication: N/A - Med Ordered
[2023-01-03] MEDS: Docusate Sodium 100 MG CAPSULE PO (10:40)
[2023-01-03] MEDS: clonazePAM 1 MG TABLET PO (10:40)
[2023-01-03] MEDS: polyethylene glycoL 3350 17 GM POWD.PACK PO (10:40)
[2023-01-03] MEDS: Morphine Sulfate 2 MG/ML CARTRIDGE 1 MG IVPUSH ×2 (10:45→22:40)
[2023-01-03] MEDS: LORazepam 2 MG/ML VIAL 1 MG IVPUSH (12:56)
--- NOTE | 2023-01-03 13:36 | MHC.CM.PN ---
BRIAN 01/03/23 Patient transferred from -3 01/02/23 DX Constipation. Pt lives with children prior to admit to [facility]. She is independent with all functional mobility. PCP is Jm Muniz MA. She declined the offer to document a HCP. DP home self care. She will arrange for transport home. A referrals have been sent for home services in the [facility] area. Patient is new to Self catheterization. Reinforement of ed will be provided by the [facility] if MD orders.
[2023-01-03 15:40] VITALS: BP 124/80; PULSE 62; RESP 20; TEMP 36.8; O2SAT 97
[2023-01-03] MEDS: Morphine Sulfate 2 MG/ML CARTRIDGE IVPUSH (15:41)
[2023-01-03] MEDS: ondansetron HCL 4 MG/2 ML VIAL IVPUSH (16:37)
[2023-01-03] MEDS: LORazepam 2 MG/ML VIAL 0.5 MG IVPUSH (17:00)
[2023-01-03 19:40] VITALS: BP 117/58; PULSE 73; RESP 18; TEMP 36.4; O2SAT 96
[2023-01-03] MEDS: 0.9 % Sodium Chloride Flush 3 ML SYRINGE IVFLUSH (20:23)
[2023-01-03] MEDS: Ondansetron ODT 8 MG TAB.RAPDIS TRANSLINGU (20:28)
[2023-01-03] MEDS: clonazePAM 0.5 MG TABLET PO (20:44)
--- NOTE | 2023-01-04 00:36 | PC.NURSE ---
Dr. Barrera spoke to pt, pt asked if she could eat solid food. Pt is on a Full Liquid diet. Dr. Barrera gave permission for pt to have salt crackers.
[2023-01-04 04:00] VITALS: BP 103/58; PULSE 58; RESP 16; TEMP 36.1; O2SAT 97
[2023-01-04] MEDS: clonazePAM 1 MG TABLET PO ×2 (04:43→09:14)
[2023-01-04] MEDS: Omeprazole 20 MG CAPSULE.DR PO (05:39)
[2023-01-04] MEDS: Acetaminophen 325 MG TABLET 650 MG PO (05:46)
[2023-01-04 07:07] VITALS: BP 104/61; PULSE 55; RESP 17; TEMP 36.4; O2SAT 97
[2023-01-04] MEDS: 0.9 % Sodium Chloride Flush 3 ML SYRINGE IVFLUSH (09:06)
[2023-01-04] MEDS: Simethicone 80 MG TAB.CHEW PO (09:06)
[2023-01-04] MEDS: Methylphenidate HCl 10 MG TABLET 20 MG PO (09:06)
[2023-01-04] MEDS: Gabapentin 600 MG TABLET PO (09:06)
[2023-01-04] MEDS: Ketorolac Tromethamine 15 MG/ML VIAL IVPUSH (09:06)
[2023-01-04] MEDS: Naltrexone HCl 50 MG TABLET PO (09:06)
[2023-01-04] MEDS: Nicotine Polacrilex 2 MG GUM BUCCAL (09:13)
[2023-01-04] MEDS: clonazePAM 0.5 MG TABLET PO (09:14)
--- NOTE | 2023-01-04 09:53 | PC.NURSE ---
Pt has Klonipin ordered PRN, BID, was given at 443am by night nurse, I gave her her 2nd daily dose at 915am, BAILEY Baron is aware.
--- NOTE | 2023-01-04 10:18 | P.PNGS_ITS ---
Subjective Subjective Date of Service: 01/04/23 Interval history: more BMs overnight feels much better tolerting diet Physical Exam 2 Vital Signs: Vital Signs: Last Vital Signs Temp 97.5 F 01/04/23 07:07 Pulse 55 01/04/23 07:07 Resp 17 01/04/23 07:07 BP 104/61 01/04/23 07:07 Pulse Ox 97 01/04/23 07:07 O2 Del Method Room Air 01/04/23 07:07 BMI result Body Mass Index 22.6 Const: General: comfortable and no acute distress Resp: Effort & Inspection: normal respiratory effort Cardio: Rate: regular rate GI: Palpation (GI): Soft to palpation, not firm, nontender and no guarding Objective Data Active Medications Acetaminophen (Acetaminophen 325 Mg Tablet) 650 mg PO Q6H PRN PRN Reason: Pain, Mild (Pain Scale 1-3) Last Admin: 01/04/23 05:46 Dose: 650 mg Documented By: NINA Bisacodyl (Bisacodyl 5 Mg Tablet.Dr) 10 mg PO DAILY [facility] Last Admin: 01/04/23 09:11 Dose: Not Given Documented By: [facility] Non-Admin Reason: Patient Refused Clonazepam (Clonazepam 1 Mg Tablet) 1 mg PO BID PRN PRN Reason: Anxiety Last Admin: 01/04/23 09:14 Dose: 1 mg Documented By: RUTH Clonazepam (Clonazepam 0.5 Mg Tablet) 0.5 mg PO DAILY PRN PRN Reason: Anxiety Last Admin: 01/04/23 09:14 Dose: 0.5 mg Documented By: RUTH Docusate Sodium (Docusate Sodium 100 Mg Capsule) 100 mg PO BID [facility] Last Admin: 01/04/23 09:09 Dose: Not Given Documented By: RUTH Non-Admin Reason: Patient Refused Gabapentin (Gabapentin 600 Mg Tablet) 600 mg PO TID [facility] Last Admin: 01/04/23 09:06 Dose: 600 mg Documented By: RUTH Magnesium Hydroxide (Milk Of Magnesia 30 Ml Oral.Susp) 30 ml PO DAILY PRN PRN Reason: Constipation Methylphenidate HCl (Methylphenidate Hcl 10 Mg Tablet) 20 mg PO BID@0800,1330 [facility] Last Admin: 01/04/23 09:06 Dose: 20 mg Documented By: RUTH Naltrexone HCl (Naltrexone Hcl 50 Mg Tablet) 50 mg PO DAILY [facility] Last Admin: 01/04/23 09:06 Dose: 50 mg Documented By: RUTH Nicotine (Nicotine 14 Mg Patch.Td24) 14 mg TRANSDERMA DAILY PRN PRN Reason: nicotine cravings Nicotine Polacrilex (Nicotine Polacrilex 2 Mg Gum) 2 mg BUCCAL Q2H PRN PRN Reason: Nicotine Cravings Last Admin: 01/04/23 09:13 Dose: 2 mg Documented By: RUTH Omeprazole (Omeprazole 20 Mg Capsule.Dr) 20 mg PO DAILY@0630 [facility] Last Admin: 01/04/23 05:39 Dose: 20 mg Documented By: NINA Ondansetron HCl (Ondansetron Hcl 4 Mg/2 Ml Vial) 4 mg IVPUSH Q8H PRN PRN Reason: Nausea and Vomiting Last Admin: 01/03/23 16:37 Dose: 4 mg Documented By: BETZAIDA Ondansetron HCl (Ondansetron Odt 8 Mg Tab.Rapdis) 8 mg TRANSLINGU Q12H PRN PRN Reason: Nausea and Vomiting Last Admin: 01/03/23 20:28 Dose: 8 mg Documented By: NINA Polyethylene Glycol (Polyethylene Glycol 3350 17 Gm Powd.Pack) 17 gm PO BID [facility] Last Admin: 01/04/23 08:54 Dose: Not Given Documented By: RUTH Non-Admin Reason: Patient Refused Risperidone (Risperidone 2 Mg Tablet) 2 mg PO BEDTIME [facility] Last Admin: 01/03/23 22:02 Dose: Not Given Documented By: NINA Non-Admin Reason: Patient Refused Simethicone (Simethicone 80 Mg Tab.Chew) 80 mg PO QIDWMHS [facility] Last Admin: 01/04/23 09:06 Dose: 80 mg Documented By: RUTH Sodium Biphosphate/Sodium Phosphate (Sodium Phosphate,[place]-Dibasic 133 Ml Enema) 133 ml [place] DAILY PRN PRN Reason: Constipation Last Admin: 01/02/23 20:32 Dose: 133 ml Documented By: YORDY Sodium Chloride (0.9 % Sodium Chloride Flush 3 Ml Syringe) 3 ml IVFLUSH QSHIFT [facility] Last Admin: 01/04/23 09:06 Dose: 3 ml Documented By: RUTH Sodium Chloride (Sodium Chloride 0.65 % Nasal 44 Ml Sprbtl) 1 spray NOSTRIL-B Q1H PRN PRN Reason: Congestion Last Admin: 01/03/23 08:30 Dose: 1 spray Documented By: MATI Comments: barcode doesn't scan. patient came with medication from m3. Trazodone HCl (Trazodone Hcl 50 Mg Tablet) 50 mg PO BEDTIME MRX1 PRN PRN Reason: Insomnia Last Admin: 01/02/23 21:30 Dose: 50 mg Documented By: JALEESAQC Labs 01/03/23 05:26 01/02/23 17:21 Imaging Abdominal x-ray: Radiologist's impression: Impressions KUB X-Ray 01/03/23 16:40 IMPRESSION: Unremarkable examination. Procedures Date of Service Date of Service: 01/04/23 Progress Note: A&P Assessment and plan (1) Constipation by delayed colonic transit: Status: Acute Assessment and Plan: much improved has had multiple BMs will need to be on good bowel regimen especially if she is on anticholinergic medications will need colonoscopy down the line ok to dc home Time Spent With Patient Time: Total time managing care of this patient today ____ minutes. Quality Stroke Does the patient have a stroke diagnosis?: No VTE Prior VTE?: No VTE Risk Level:: Medical - moderate - high VTE Device Contraindication: Treatment Not Indicated VTE Drug Contraindication: N/A - Med Ordered
--- NOTE | 2023-01-04 10:50 | PM.DS ---
DS: Providers Provider Date of Service: 01/04/23 Date of admission: 01/02/23 14:45 Date of discharge: 01/04/23 Primary care physician: Unknown Physician Admitting clinician: Sally Goddard Attending physician on admission: Angel Robbins Consults: 01/02/23 14:47 Consult to General Surgery Routine Consulting Provider: [facility] Reason for consultation: fecal impaction, severe constipation, abd pain Attending physician on discharge: Angel Robbins Discharging clinician: Sally Goddard DS: Diagnosis Discharge Diagnosis (1) Constipation by delayed colonic transit: Status: Acute DS: Summary Hospital Course Hospital Course: HPI on admission 01/02 by this provider: 47-year-old female with history of biliary obstruction, osteoarthritis, recurrent shingles, recurrent muscle spasms, schizoaffective disorder, depression, IBS, and remote history of bowel obstruction as an as well as generalized anxiety disorder who had been admitted to psychiatry for management of increasing anxiety, depression, and paranoia related to social stressors at home. About 3 days ago, developed intermittent severe abdominal pain typically brought on by food. CT scan at that time showed very high stool volume in the entire colon consistent with constipation as well as possible mass. Repeat CT scan was ordered with IV contrast which ruled out possibility of mass. Patient has been seen by Gastroenterology and has trialed multiple oral constipation medications and has received several enemas. She also completed GoLYTELY and has not had full bowel movement. Anticholinergic medications such as Cogentin were discontinued and dose of risperidone was lowered to 2 mg. She is not on any other anticholinergic medications at this time. She did require IM her cardiac medication at times due to the severity of her pain though administration of these was limited to avoid exacerbation of the constipation. She states she does occasionally pass flatus. Secondary to the severe constipation verses psychiatric medication use, she was also noted to have urinary retention with straight catheterization yielding 1.1 L of urine. She states she has been able to urinate since was also evaluated by Urology who is recommending intermittent self catheterizations as needed which patient is agreeable to. KUB yesterday appeared to have some improvement in constipation however severe pain persisted and CT abdomen/pelvis with again revealing large stool burden throughout the colon. She again received mineral oil enema last night and again this morning. Reports she had very scant watery output with small amount of stool but symptoms have not resolved. Case was again discussed with General surgery who evaluated patient bedside and attempted digital disimpaction. There is noted to be air in the rectum without any significant stool. Decision was made to move patient to the medical floors as she has been cleared psychiatrically and reports she is feeling much better in that regard, for further management of severe constipation/fecal impaction. Hospital Course: Pt admitted to M/S for further management of severe constipation and abdominal pain r/t anticholinergic medications. She was cleared psychiatrically and transferred to medicine for further management. Management continued with fleet enemas and bowel regimen. She began having large volume bowel movements with slow improvement in pain. She did require intermittent prn narcotics for severe pain given lack of improvement with tylenol and torodol but use was limited to prevent worsening of constipation. She was followed by general surgery and did not undergo any further disimpaction. Seen by psychiatry and risperidone was discontinued in favor of haldol 2mg at bedtime for slightly less anticholingeric properties. With resolution of constipation, urinary retention did not recur. However, she was advised that antipsychotic medications could also contribute to this. She has been trained on self catheterization and given a prescription for catheters to use prn. She will be discharged on bowel regimen and will follow up with Dr. Cai in GI at [facility] for outpt colonoscopy. Has follow up with psychiatrist on 01/10. Follow up with PCP soon. Counseled on smoking cessation and given patches/lozenges. Time spent discussing smoking cessation with patient: 3 to 10 minutes Status at Discharge Functional status at discharge: independent ambulation Overall status at discharge: patient is progressing back to baseline Time Attestation Discharge coordination time: Greater than 30 minutes Quality: Safe Use of Opioids Does Pt have an Active Cancer Diagnosis on the Problem List?: No Quality: Stroke Does the patient have a stroke diagnosis?: No Physical Exam Vital Signs: Vital Signs: Last Vital Signs Temp 97.5 F 01/04/23 07:07 Pulse 55 01/04/23 07:07 Resp 17 01/04/23 07:07 BP 104/61 01/04/23 07:07 Pulse Ox 97 01/04/23 07:07 O2 Del Method Room Air 01/04/23 07:07 BMI result Body Mass Index 22.6 Constitutional - Awake and Alert, No apparent distress Eyes - PERRLA, EOMI Cardiovascular - S1S2, RRR, No edema Respiratory - Normal lung expansion, Normal respiratory effort, No respiratory distress, CTA bilaterally Gastrointestinal - NT / ND; +BS; No rebound or guarding Extremities - no calf tenderness bilaterally, no swelling Skin - Warm/Dry Neurological - Alert & oriented x3 Psychological - Appropriate affect Discharge Plan Discharge Anticipated Discharge Date/Time: 01/04/23 10:52 Patient Disposition: Home, Self-Care Referrals: Physician,Unknown J [Physician] - 1 Week Discharge Medications: New nicotine 14 mg/24 hr Patch 24 Hour 14 mg transdermal DAILY PRN (Reason: nicotine cravings) Qty: 30 0RF haloperidol 1 mg Tablet 2 mg PO BEDTIME Qty: 30 1RF nicotine (polacrilex) [Nicorette] 2 mg lozenge 2 mg buccal Q2-4H PRN (Reason: nicotine cravings) Qty: 108 1RF ketorolac 10 mg tablet 10 mg PO Q6H PRN (Reason: pain) 5 Days Qty: 20 0RF magnesium hydroxide [Milk of Magnesia] 400 mg/5 mL Suspension 30 ml PO DAILY PRN (Reason: Constipation) Qty: 473 0RF docusate sodium 100 mg Capsule 100 mg PO BID Qty: 60 1RF bisacodyl 5 mg Tablet,Delayed Release (Dr/Ec) 10 mg PO DAILY Qty: 30 1RF polyethylene glycol 3350 [Miralax] 17 gram/dose powder 17 g PO BID Qty: 510 0RF (DME) catheter 16 Fr misc See Rx Instructions .Route Qty: 30 0RF Rx Instructions: As directed Continued gabapentin 600 mg Tablet 600 mg PO TID clonazepam 1 mg Tablet 1 mg PO BID PRN (Reason: Anxiety) methylphenidate HCl 10 mg Tablet 20 mg PO BID@0800,1330 magnesium hydroxide [Milk of Magnesia] 400 mg/5 mL Suspension 30 ml PO DAILY PRN (Reason: Constipation) Fleet Enema 19-7 gram/118 mL Enema 118 ml AK DAILY PRN (Reason: Constipation) acetaminophen 325 mg Tablet 650 mg PO Q6H PRN (Reason: Pain (Scale Score 1-3)) Qty: 30 0RF clonazepam 0.5 mg Tablet 0.5 mg PO DAILY PRN (Reason: Anxiety) Qty: 7 0RF docusate sodium 100 mg Capsule 100 mg PO BID Qty: 180 0RF bisacodyl 5 mg Tablet,Delayed Release (Dr/Ec) 10 mg PO DAILY Qty: 180 0RF Discontinued diclofenac sodium 75 mg Tablet,Delayed Release (Dr/Ec) 75 mg PO BID Discharge Orders: Discharge Order (Routine); Ordered 01/04/23 Ordered By: Sally Goddard Diet: Advance to usual diet Activity on Discharge: As tolerated Stand Alone Forms: Patient Portal Discharge page Care Plan Goals: See below Health Concerns: Severe iatrogenic constipation Urinary retention Schizoaffective disorder Plan of Treatment: Severe iatrogenic constipation: -Large bowel movements following golytely, miralax, enemas, dulcolax, and colace -KUB shows resolution of constipation -Pain has resolved and you are tolerating regular diet -Continue miralax twice daily, dulcolax once daily, docusate twice daily. Use milk of magnesia daily as needed. -If stools become loose, decrease miralax to once daily and can also discontinue dulcolax if needed -Follow up with Dr. Cai at [facility] in gastroentology. You need a colonoscopy outpatient Urinary retention -this was secondary to the large stool burden -Resolved following bowel movements -Your medications could potentially cause this as well but this seems less likely given resolution of symptoms -Straight catheterize if needed #Schizoaffective disorder with depression -discharge from [facility] psychiat[facility] unit -symptoms stable -Haldol 2mg nightly at bedtime added. Risperidone stopped. Limit anticholinergic medications in the setting of severe constipation -Continue all other home medications -Follow up with psychiatry as scheduled on 01/10 Assessment: See below Discharge Date/Time: 01/04/23 12:05
--- NOTE | 2023-01-04 11:11 | MHC.CM.PN ---
Patient is discharged to home today. The provider has not ordered VNA services. Patient no longer requires self catheterization. The urinary retention subsided once her bowels were evacuated. [facility] has been notified that home services are not required. Patient has arranged for transportation home today. Her ride is expected at 12pm for picker packer. She has been given a gift certificate for the coffee shop. She will be going to the discharge lounge once her discharge paperwork is received.
== END 2023-01-04 12:05 | disposition home or self-care (01) ==
PROVIDERS: Admitting Provider Physician Assistant; PCP Nurse Practitioner Family; Visit Provider Physician Assistant
DX: K59.01 Slow transit constipation (principal); R33.9 Retention of urine, unspecified; M19.90 Unspecified osteoarthritis, unspecified site; F25.1 Schizoaffective disorder, depressive type
CPT/HCPCS: 36415; 74018; 80053; 83690; 85025; 87086; 87088; 87186; 96361; 96374; 96375; 96376; 99221; J1170; J1885; J2060; J2270; J2405

== ENCOUNTER → 2023-01-02 14:45 | Outpatient (BNV) | payer MEDICARE, MEDICAID, SELFPAY | PROVIDERS: Admitting Provider Physician Assistant; Visit Provider Physician Assistant | DX: K59.01 Slow transit constipation (principal) | CPT/HCPCS: 99223; 99232; 99239; 99499 ==

== ENCOUNTER → 2023-01-02 14:45 | Outpatient (BNV) | payer MEDICARE, MEDICAID, SELFPAY | PROVIDERS: Admitting Provider Physician Assistant; Visit Provider Surgery | DX: K59.01 Slow transit constipation (principal) | CPT/HCPCS: 99222; 99232 ==